=== PATIENT | female | born 1955 | race Caucasian/White ===

== ENCOUNTER 2020-12-20 11:25 | Outpatient (CLI) | payer MEDICARE, BC, OTHER, SELFPAY ==
--- NOTE | 2020-12-20 11:35 | MM_ITS ---
WS: [id number] BILATERAL SCREENING DIGITAL MAMMOGRAM WITH CAD HISTORY: SCREENING COMPARISON: 08/12/2019 and 03/10/2018 Bilateral CC and MLO views submitted. Computer aided detection analyzed. Breast composition: There are scattered areas of fibroglandular density. No suspicious masses, microc alcifications or architectural distortion. Benign stable lymph node posterior RIGHT breast. MM/[id number] IMPRESSION: BI-RADS: 2-Benign FOLLOW UP: 1 Year Follow-up
== END 2020-12-20 11:26 | disposition home or self-care (01) ==
LOC: RADSHAW 11:33
PROVIDERS: PCP Nurse Practitioner; Visit Provider Nurse Practitioner
DX: Z12.31 Encounter for screening mammogram for malignant neoplasm of breast (principal)
CPT/HCPCS: 77067

== ENCOUNTER 2021-09-17 12:05 | Emergency (ER) | payer MEDICARE, BC, SELFPAY ==
[2021-09-17 12:15] VITALS: BP 167/89; PULSE 113; RESP 16; TEMP 36.7; O2SAT 96; BMI 27.4
--- NOTE | 2021-09-17 12:28 | ED_ITS ---
HPI - Neuro Symptoms/Deficit General: Chief Complaint: Neuro Symptoms/Deficit Stated Complaint: LEFT SIDE NUMBNESS IN ARM AND THIGH Time Seen by Provider: 09/17/21 12:28 History of Present Illness: HPI Narrative: Ms. 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 She reports for the past few weeks she has had increasing falls, she describes some mild longstanding issues with balance however nothing like this. She describes sudden onset of tired feeling followed by complete loss of consciousness and waking up on the ground. No associated focal neurologic or seizure-like activity witnessed with these. She denies associated chest pain or shortness of breath. On Thursday she was seen by her neurologist in [place] for the symptoms and taken off of amitriptyline which she has been on for a long time as the neurologist felt that this was possibly a side effect as the patient aged. However, she has continued to have symptoms. Additionally over the past few days she has developed increasing left-sided sensory changes and weakness involving the left upper and left lower extremity. No facial involvement. She endorses perhaps 75% of normal sensation at times and feeling like if she bends her knee she will fall to the ground. Additionally facially she feels less balanced with no vertiginous symptoms associated with this. She denies infectious symptoms. Overall the course of symptoms has been worsening. Intensity is moderate to severe. No other specific changes in health, exacerbating, relieving factors identified. Onset (ago): day(s) Location: left arm, left leg and ataxia History of same: No Severity: moderate Quality: weak, numb and tingling Relieving factors: none Exacerbating factors: none Context: gradual onset and other On Anticoagulants: No Associated symptoms: Reports syncope Treatments Prior to Arrival: none Review of Systems General: Reports: 10 or more systems reviewed and unremarkable except in HPI and below Card: Reports: syncope PFS ED PFSH: Medical History CVA (cerebral vascular accident) Psoriatic arthritis Thyroid disorder Surgical History History of hysterectomy Social History Smoking and tobacco status: never smoked Physical Exam Const: COMMON NORMALS: patient oriented x3 and alert GENERAL APPEARANCE: cooperative and well developed HENMT: COMMON NORMALS: normocephalic and atraumatic HEAD & SCALP: normocephalic and atraumatic THROAT: posterior oropharynx normal Eye: COMMON NORMALS: conjunctivae normal CONJUNCTIVA: Yes conjunctivae normal SCLERA: sclerae normal Neck/C-Spine: COMMON NORMALS: supple GENERAL: Yes trachea midline Resp: COMMON NORMALS: normal respiratory effort EFFORT & INSPECTION: Yes able to speak in complete sentences Cardio: COMMON NORMALS: regular rate and regular rhythm RATE: regular rate RHYTHM: regular rhythm GI: COMMON NORMALS: Soft to palpation PALPATION: Yes Soft to palpation and No Tenderness to palpation present (GI) PERCUSSION: normal to percussion Extremity: GENERAL: Yes normal exam except as noted and No edema Neuro: COMMON NORMALS: patient oriented x3 and CN's II-XII intact bilaterally SENSORIUM/ORIENTATION: Yes alert and No Orientation impaired COORDINATION/BALANCE: other (Difficulty with left upper extremity [id number]) SPEECH: speech normal SENSORY EXAM: Yes extremities (sharp and dull intact and symmetric) MOTOR EXAM: Other motor observations present (Left upper extremity 4/5) COORDINATION: other (Difficulty with left upper extremity [id number]) PUPIL EXAM: Normal pupillary reactivity/response: bilateral Psych: COMMON NORMALS: mental status grossly normal and Normal thought process present THOUGHT PROCESS: Normal thought process present Course ED course: - Patient was seen and evaluated by me at bedside - Patient placed on cardiac monitors, IV access obtained - Initial evaluation notable for exam as above, there is appreciable weakness in the left upper extremity, no cranial nerve deficits - Given mild tachycardia IV fluids ordered - Labs notable for no leukocytosis, normal hemoglobin. Metabolic panel with perhaps mild evidence of dehydration. No evidence of urinary tract infection. - Imaging notable for no acute evidence of intracranial hemorrhage or mass - Upon serial reexamination after treatment the patient was similar. I discussed the case initially with Dr. Mesa of our neurology service and subsequently patient's primary neurologist. - Based on patient history, evaluation, labs, and imaging as interpreted the most likely cause of the patient's condition is unclear, possible stroke in the context of previous strokes. - The results of ED evaluation were discussed with the patient. I offered admission for MRI and further testing. Alternatively, Dr. Rios recommended discharge on aspirin which the patient was comfortable with. The patient preferred discharge over admission. Additionally I offered Keppra which was discussed with Dr. Rios however the patient declined this at this time. I discussed prescriptions and/or symptomatic cares (if applicable) including appropriate and responsible use, followup plan, and return precautions. The grey ent verbalized understanding and felt safe for discharge. - Patient discharged in satisfactory condition. - As far as further outpatient evaluation does the patient has an outpatient order for MRI from Dr. Rios. Additionally she currently has a Zio patch on. Given recurrent syncope without specific prodrome I will order additional outpatient testing including carotid ultrasound, echocardiogram, and stress test. Note: Click bubbles or prepopulated patten in note writing are used for assistance with data collection and billing and are inherently more limited than narrative and other text portions of this note. Please use narrative for additional clinical history and defer to narrative/free test for any case of contradictory information. If information appears in only free text or click bubble it should be considered present or absent as reported. Please contact note real estate underwriter for clarifications of clinical information or contradictory information. MDM is a brief summary, contradictory or erroneous seeming information should be clarified and full note should be reviewed. Vital Signs: Vital signs: Vital Signs Temperature 98.0 F 09/17/21 12:15 Pulse Rate 92 09/17/21 17:04 Respiratory Rate 20 H 09/17/21 17:04 Blood Pressure 141/88 09/17/21 17:04 Pulse Oximetry 96 09/17/21 17:04 MDM - Neuro Symptoms/Deficit MDM Narrative Medical decision making narrative: 66-year-old lady with history of stroke presenting with recrudescence versus new strokes primarily with left-sided changes. Changes are appreciable on clinical exam. Symptom onset days ago and therefore patient is not a candidate for TPA. No evidence of LVO. I discussed patient's case with patient's primary neurologist who felt the patient could safely be discharged with plan to add aspirin to patient's Plavix and statin. Patient has outpatient MRI orders and can safely follow-up in clinic. Medical Records Attestation: I reviewed the patient's medical records. Lab Data Attestation: I reviewed the patient's lab results. Result diagrams: 09/17/21 13:04 09/17/21 13:04 Labs: Radiology Impressions Chest X-Ray 09/17/21 12:48 Impression: Atherosclerosis. Head CT 09/17/21 12:48 IMPRESSION: 1. No acute intracranial hemorrhage or edema. 2. Moderate to severe areas of decreased attenuation surrounding the ventricles with progression the prior CT of 2019. There are several areas of marked decreased attenuation adjacent to the corpus callosum. Ischemic disease and/or demyelinating process should be considered. Laboratory Results WBC 7.6 10^3/uL (4.0-10.0) 09/17/21 13:04 RBC 4.02 10^6/uL (4.1-5.3) L 09/17/21 13:04 Hgb 12.2 g/dL (11.5-15.3) 09/17/21 13:04 Hct 37.1 % (37.0-47.0) 09/17/21 13:04 MCV 92.3 fl (81-99) 09/17/21 13:04 MCH 30.3 pg (28.0-34.0) 09/17/21 13:04 MCHC 32.9 g/dL (30.0-36.0) 09/17/21 13:04 RDW 12.7 % (12.1-15.1) 09/17/21 13:04 Plt Count 265 10^3/cmm (130-400) 09/17/21 13:04 MPV 10.2 fL (7.4-10.4) 09/17/21 13:04 Neut % (Auto) 69.2 % 09/17/21 13:04 Lymph % (Auto) 20.9 % 09/17/21 13:04 [place] % (Auto) 8.1 % 09/17/21 13:04 Eos % (Auto) 1.0 % 09/17/21 13:04 Baso % (Auto) 0.7 % 09/17/21 13:04 Neut # (Auto) 5.28 10^3/uL (1.8-7.7) 09/17/21 13:04 Lymph # (Auto) 1.6 10^3/uL (0.8-4.8) 09/17/21 13:04 [place] # (Auto) 0.6 10^3/uL (0.2-0.9) 09/17/21 13:04 Eos # (Auto) 0.1 10^3/uL (0.0-0.8) 09/17/21 13:04 Baso # (Auto) 0.1 10^3/uL (0.0-0.1) 09/17/21 13:04 Nucleated RBC % (auto) 0 % 09/17/21 13:04 Nucleated RBCs # 0.0 /100WBC 09/17/21 13:04 Sodium 134 mmol/L (136-145) L 09/17/21 13:04 Potassium 3.8 mmol/L (3.5-5.1) 09/17/21 13:04 Chloride 97 mmol/L (98-107) L 09/17/21 13:04 Carbon Dioxide 23 mmol/L (22-29) 09/17/21 13:04 Anion Gap 17.8 (5-19) 09/17/21 13:04 BUN 8 mg/dL (8-23) 09/17/21 13:04 Creatinine 0.4 mg/dL (0.5-0.9) L 09/17/21 13:04 GFR Calculation 159.7 mL/min (90-130) H 09/17/21 13:04 Glucose 112 mg/dL (65-115) 09/17/21 13:04 Calculated Osmolality 277 mOsm/kg (285-295) L 09/17/21 13:04 Calcium 8.7 mg/dL (8.5-10.5) 09/17/21 13:04 Total Bilirubin 0.5 mg/dL (0.15-1.2) 09/17/21 13:04 AST 15 U/L (0-32) 09/17/21 13:04 ALT 11 U/L (0-33) 09/17/21 13:04 Alkaline Phosphatase 139 IU/L (35-105) H 09/17/21 13:04 Troponin T Baseline 7 ng/L (0-10) 09/17/21 13:04 Troponin T 120 Minute 7.28 ng/L (0-10) 09/17/21 15:10 Delta Troponin T 0.28 ABS# (0-10) 09/17/21 15:10 Total Protein 6.7 g/dL (6.6-8.7) 09/17/21 13:04 Albumin 4.6 g/dL (3.5-5.2) 09/17/21 13:04 Globulin 2.1 g/dL (1.3-4.6) 09/17/21 13:04 TSH 1.75 uIU/mL (0.27-4.20) 09/17/21 13:04 Urine Color Yellow (Yellow) 09/17/21 14:09 Urine Appearance Clear (CLEAR) 09/17/21 14:09 Urine pH 8 (5-7) H 09/17/21 14:09 Ur Specific [place] 1.010 (1.005-1.030) 09/17/21 14:09 Urine Protein Neg (Negative) 09/17/21 14:09 Urine Glucose (UA) Norm (Normal) 09/17/21 14:09 Urine Ketones Negative (Negative) 09/17/21 14:09 Urine Blood Neg (Negative) 09/17/21 14:09 Urine Nitrate Negative (Negative) 09/17/21 14:09 Urine Bilirubin 1+ (Negative) H 09/17/21 14:09 Prot Sulfosalicylic Acd Negative (Negative) 09/17/21 14:09 Urine Urobilinogen Neg mg/dL (Negative) 09/17/21 14:09 Ur Leukocyte Esterase Negative (Negative) 09/17/21 14:09 EKG Data EKG 1: Interpretation: Twelve-lead EKG shows a regular rhythm at a rate of 106. CA interval 186, Q RS duration 120, QTc 429. Left axis deviation. Interpretation: Sinus rhythm. Bundle branch block. Electronic interpretation reads acute NH which I believe is erroneous given presence of bundle branch block. Image was sent to interventional cardiology who agrees with continued routine work-up. EKG 2: Attestation: I personally reviewed and interpreted this EKG as follows: EKG interpretation date: 09/17/21 EKG interpretation time: 16:22 Interpretation: 12-lead EKG shows a regular rhythm at a rate of 88. CA interval 209, QRS duration 108, QTc 434. Left axis deviation. Interpretation: Sinus rhythm. Electronic interpretation of acute NH is not appreciated on my read, similar erroneous read on prior EKG Discharge Plan Discharge Patient Disposition: Home Clinical Impression: Stroke-like symptoms, Syncope Condition: Stable Prescriptions: New aspirin 81 mg tablet,delayed release (DR/EC) 81 mg PO DAILY Qty: 30 0RF Discharge Orders: Discharge ED (Routine); Ordered 09/17/21 Ordered By: Jadiel Santana Referrals: Marisela Singh PERMANENT MOLD SUPERVISOR [Primary Care Provider] - Discharge Diet: Usual diet Discharge Activity: Resume usual activity Patient Instructions: Syncope (ED), Stroke (DC) Activity Restrictions/Additional Instructions: Thank you for visiting the emergency department. You were seen and evaluated for strokelike symptoms. The exact cause of the symptoms is somewhat unclear. You were found to be mildly dehydrated. It is possible that this is a new stroke. After discussion with your primary neurologist we recommend continuing your Plavix and statin as well as adding daily aspirin. Please follow-up regarding your current event monitor and your outpatient MRI. I will message our renal case manager for outpatient stress test and echocardiogram as well as ultrasound of your carotid arteries if these have not been done. Return to the emergency department for worsening symptoms, any new neurologic sy mptoms, or anything else that you are concerned about and feel needs emergency department evaluation. Coding Level of Care Code ED Bilingual Instructor for Danish Fwd Exam Comprehensive
[2021-09-17 12:48] VITALS: BP 144/82; PULSE 113; RESP 20; O2SAT 95
--- NOTE | 2021-09-17 12:48 | XR_ITS ---
WS: [id number] Portable AP upright chest, 09/17/2021 Clinical Data: stroke like symptoms Comparison: Portable chest, 01/22/2019. Findings: No nodules, masses or effusions are seen. The heart is normal. The pulmonary vascularity is not increased. No pneumonia or pneumothorax is seen. The aortic arch and descending thoracic aorta a re minimally tortuous. There is a recording device overlying the left hilum. XR/XR chest 1V portable [id number] Impression: Atherosclerosis.
--- NOTE | 2021-09-17 12:48 | ECG_ITS ---
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 Measurements Intervals [place] Rate: 106 P: -16 DE: 186 QRS: 35 QRSD: 120 T: -75 QT: 367 QTc: 488 Interpretive Statements SINUS TACHYCARDIA with frequent aberrantly conducted beats. ANTEROSEPTAL MYOCARDIAL INFARCTION , PROBABLY RECENT [40+ ms Q WAVE IN V1-V4] Diffuse nonspecific T wave changes. Recent anterolateral wall WI Compared to ECG 01/22/2019 16:41:29 Sinus rhythm no longer present Myocardial infarct finding still present Electronically Signed On 09-19-2021 0:00:11 HAND MOLDER AND CASTER by Marie Son M.D. [email or web address] Resourcesselect specialty hospitalLATTOaultman alliance community hospital.[employer]/store/OM/[id number]
--- NOTE | 2021-09-17 12:48 | CT_ITS ---
WS: [id number] CT HEAD NONCONTRAST HISTORY: L sided weakness, falls, LOC recurrent TECHNIQUE: Contiguous axial imaging performed through the brain in 2.5 mm imaging. Bone and soft tiss ue windows. Sagittal and coronal reformats reviewed. All CT scans at [facility] use at least one of these dose optimization techniques: automated exposure control; mA and/or kV adjustment per pa tient size (includes targeted exams where dose is matched to clinical indication); or iterative recon struction. DLP: 888.79 mGy.cm COMPARISON: 01/22/2019 No acute intracranial hemorrhage, midline shift or mass effect. There is extensive low-attenuation in the periventricular white matter. Confluent and patchy areas of decreased attenuation. There are additional smaller areas of decreased attenuation which are probabl y prior infarcts or demyelination. These are black holes which resemble demyelination from multiple s clerosis. There has been a progression of the chronic ischemic changes since the prior examination. Lacunar infarct in the LEFT thalamus and RIGHT caudate. Ventricles: Mild ventriculomegaly is probably on the basis of volume loss. Paranasal sinuses: As visualized are clear. Mastoid air cells: Well pneumatized. Calvarium and scalp: Skull is intact with no soft tissue edema or swelling. CT/CT head wo con* [id number] IMPRESSION: 1. No acute intracranial hemorrhage or edema. 2. Moderate to severe areas of decreased attenuation surrounding the ventricle s with progression the prior CT of 2018. There are several areas of marked decr eased attenuation adjacent to the corpus callosum. Ischemic disease and/or demy elinating process should be considered.
[2021-09-17 13:10] LABS: Basophils # 0.1 10^3/uL (0.0-0.1); Basophils % 0.7 %; Eosinophils # 0.1 10^3/uL (0.0-0.8); Hematocrit 37.1 % (37.0-47.0); Hemoglobin 12.2 g/dL (11.5-15.3); Lymphocytes # 1.6 10^3/uL (0.8-4.8); Lymphocytes % 20.9 %; Mean Corpuscular HGB Conc 32.9 g/dL (30.0-36.0); Mean Corpuscular Hemoglobin 30.3 pg (28.0-34.0); Mean Corpuscular Volume 92.3 fl (81-99); Mean Platelet Volume 10.2 fL (7.4-10.4); Monocytes # 0.6 10^3/uL (0.2-0.9); Monocytes % 8.1 %; Neutrophils # 5.28 10^3/uL (1.8-7.7); Neutrophils % 69.2 %; Nucleated Red Blood Cells % 0 %; Platelet Count 265 10^3/cmm (130-400); Red Blood Count 4.02 10^6/uL (4.1-5.3); Red Cell Distribution Width 12.7 % (12.1-15.1); White Blood Count 7.6 10^3/uL (4.0-10.0)
[2021-09-17 13:32] LABS: Troponin(5th) Baseline 7 ng/L (0-10)
[2021-09-17] MEDS: sodium chloride 0.9% 1,000 ML 999 ML IV (13:36)
[2021-09-17 13:38] LABS: Alanine Aminotransferase 11 U/L (0-33); Albumin Level 4.6 g/dL (3.5-5.2); Alkaline Phosphatase 139 IU/L (35-105); Anion Gap 17.8 (5-19); Aspartate Amino Transferase 15 U/L (0-32); Blood Urea Nitrogen 8 mg/dL (8-23); Calcium 8.7 mg/dL (8.5-10.5); Carbon Dioxide 23 mmol/L (22-29); Chloride 97 mmol/L (98-107); Globulin 2.1 g/dL (1.3-4.6); Glomerular Filtration Rate 159.7 mL/min (90-130); Glucose 112 mg/dL (65-115); Osmolality Calculated 277 mOsm/kg (285-295); Potassium 3.8 mmol/L (3.5-5.1); Sodium 134 mmol/L (136-145); Thyroid Stimulating Hormone 1.75 uIU/mL (0.27-4.20); Total Bilirubin 0.5 mg/dL (0.15-1.2); Total Protein 6.7 g/dL (6.6-8.7)
[2021-09-17 14:17] VITALS: BP 156/82; PULSE 108; RESP 20; O2SAT 96
[2021-09-17 14:18] LABS: Add Urine Microscopic? NO; Charge for UA Resulting for Rev
[2021-09-17 14:33] LABS: Bilirubin Urine 1+ (Negative); Blood Urine Neg (Negative); Glucose Urine UA Norm (Normal); Ketones Urine Negative (Negative); Nitrate Urine Negative (Negative); Protein Urine Neg (Negative); Urine Appearance Clear (CLEAR); Urine Color Yellow (Yellow); pH Urine 8 (5-7)
[2021-09-17 14:34] LABS: Leukocyte Esterase Urine Negative (Negative); Sulfosalicylic Acid Urine Negative (Negative); Urobilinogen Urine Neg (Negative)
--- NOTE | 2021-09-17 14:48 | ECG_ITS ---
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 Measurements Intervals [place] Rate: 88 P: 16 [place]: 209 QRS: -51 QRSD: 108 T: 74 QT: 389 QTc: 471 Interpretive Statements SINUS RHYTHM with ISOLATED PVC'S POSSIBLE LEFT ATRIAL ENLARGEMENT [-0.1mV P-WAVE IN V1/V2] LEFT AXIS DEVIATION [QRS AXIS < -30] POSSIBLE LEFT VENTRICULAR HYPERTROPHY [VOLTAGE CRITERIA PLUS LAE OR QRS WIDENING] ANTEROSEPTAL MYOCARDIAL INFARCTION , PROBABLY RECENT Compared to ECG 09/17/2021 13:24:57 Left-axis deviation now present Sinus tachycardia no longer present Myocardial infarct finding still present Electronically Signed On 09-17-2021 22:10:37 HARNESS INSPECTOR by Eliz Aranda M.D. [email or web address]/store/[id number]
[2021-09-17 15:35] VITALS: BP 134/90; PULSE 100; RESP 17; O2SAT 95
[2021-09-17 15:49] LABS: Troponin 5 2HR 7.28 ng/L (0-10)
[2021-09-17 17:04] VITALS: BP 141/88; PULSE 92; RESP 20; O2SAT 96
[2021-09-17 17:38] LABS: Troponin 5 2HR Delta 0.28 ABS# (0-10)
--- NOTE | 2021-09-18 15:51 | DCPLANNER ---
Addendum entered by Ramandeep Dsouza 10/18/21 10:22: Patient had an appointment scheduled for 10.04.21 for an out patient stress test - patient did attend appointment. Patient had an appointment scheduled for 10.02.21 for an out patient ultrasound - patient did attend appointment. Patient had an appointment scheduled for 10.17.21 for an out patient echo - patient did not attend appointment. Addendum entered by Ramandeep Dsouza 09/24/21 09:09: Patient has the following tests scheduled, and centralized scheduling has called patient with appointment information. Stress test - Thursday, October 04, 2021 at 9:15 US - Thursday, October 02, 2021 at 11:00 Echo - September, at 10:15 Original Note: biodiesel product manager had message to schedule an outpatient stress test, echo and a carotid duplex ultrasound. biodiesel product manager faxed signed order to centralized scheduling, who will call patient with appointment information.
== END 2021-09-17 17:00 | disposition home or self-care (01) ==
PROVIDERS: Emergency Provider Emergency Medicine; PCP Nurse Practitioner
DX: R55 Syncope and collapse (principal); R68.89 Other general symptoms and signs; Z86.73 Personal history of transient ischemic attack (TIA), and cerebral infarction without residual deficits
CPT/HCPCS: 36415; 70450; 71045; 80053; 81003; 84443; 84484; 85025; 93005; 96360; 99283; J7030

== ENCOUNTER 2021-09-24 12:18 | Outpatient (CLI) | payer MEDICARE, BC, SELFPAY ==
--- NOTE | 2021-09-24 12:32 | MR_ITS ---
WS: [id number] MRI BRAIN WITHOUT CONTRAST HISTORY: TIA COMPARISON: 12/23/2018 TECHNIQUE: Diffusion imaging, multiplanar T1, T2 and FLAIR imaging obtained. Acute infarct with diffusion-weighted abnormality in the posterior RIGHT whyte radiata. There is an additional very tiny diffusion-weighted abnormality in the region of the LEFT thalamus which may be a n additional infarct. No evidence for T2 shine through. There is extensive T2 and FLAIR signal hyperintensities throughout the white matter and surrounding t he ventricles. Confluent and patchy areas of increased T2 and FLAIR signal. Some of these T2 signal a bnormalities extend to involve the corpus callosum at several areas and there are small black holes p resent. Progression of these chronic ischemic changes since the prior examination. Signal abnormaliti es extend to involve the dontrell bilaterally and also the RIGHT cerebellum. Ventricles and extra-axial spaces are mildly prominent on the basis of atrophy. No inferior displacement of cerebellar tonsils. The sella turcica and pituitary gland are unremarkabl e. Dural venous sinuses and [place] demonstrate no abnormality on this unenhanced studies. Paranasal sinuses: Clear. Mastoid air cells: Normal. Calvarium and scalp: Intact. MR/MR head wo con* [id number] IMPRESSION: 1. Acute infarct involving the posterior RIGHT whyte radiata. 2. Indeterminate but possible additional very small acute lacunar infarct in t he LEFT thalamus. 3. Severe chronic white matter ischemic disease. There is also involvement of the corpus callosum which can be seen with demyelination also. Suspect these ch anges all related to advanced chronic microvascular ischemic disease with progr ession since 12/23/2018. 4. No hemorrhage.
== END 2021-09-24 12:19 | disposition home or self-care (01) ==
LOC: RAD 12:22
PROVIDERS: PCP Nurse Practitioner; Visit Provider Psychiatry & Neurology Neurology
DX: R55 Syncope and collapse (principal); G45.9 Transient cerebral ischemic attack, unspecified; R47.01 Aphasia; E06.3 Autoimmune thyroiditis; G31.84 Mild cognitive impairment of uncertain or unknown etiology; I63.9 Cerebral infarction, unspecified; I67.82 Cerebral ischemia
CPT/HCPCS: 70551

== ENCOUNTER 2021-10-02 10:48 | Outpatient (CLI) | payer MEDICARE, BC, SELFPAY ==
--- NOTE | 2021-10-02 10:53 | USCV_ITS ---
Dalila Gamez Age: 66 Gender: F : 1955 Exam Date: 10/02/2021 11:03 Ordering Phys: Chacorta Hubbard DO Technologist: Mann Robin Exam Location: [facility] [place] Indication: syncope Risk Factors: Previous Vascular Surgery: Right Brachial BP: / Left Brachial BP: / Right Left Velocity (cm/s) Spectral Plaque Velocity (cm/s) Spectral Plaque Syst/Diast Broadening Syst/Diast Broadening 97.10/ 7.00 Prox CCA 122.10/ 26.60 73.80/ 19.40 Mid CCA 82.30 / 15.50 54.50/ 12.80 Distal CCA 82.30 / 15.50 34.60/ 9.40 Prox ICA 63.60 / 15.50 101.00/29.50 Mid ICA 114.50/ 43.60 99.40/ 29.50 Distal ICA 103.40/ 32.50 108.00 ECA 97.90 1.37 ICA/CCA 1.39 Antegrade Vertebral Antegrade 55.00/ 13.40 cm/s 67.50/ 22.20 cm/s Tri Subclavian Tri 114.7 133.4 0 0 CONCLUSIONS Right ICA stenosis <50%. Mild atheromatous plaque right carotid bulb/ICA. Left ICA stenosis <50%. Mild atheromatous plaque left carotid bulb/ICA. Normal antegrade Doppler flow noted in the left vertebral artery. Normal antegrade Doppler flow noted in the right vertebral artery. Juni Britton MD (Electronically Signed) Final Date: 02 October 2021 17:29 S
== END 2021-10-02 10:49 | disposition home or self-care (01) ==
PROVIDERS: PCP Nurse Practitioner; Visit Provider Psychiatry & Neurology Neurology
DX: R55 Syncope and collapse (principal); I65.23 Occlusion and stenosis of bilateral carotid arteries
CPT/HCPCS: 93880

== ENCOUNTER 2021-10-04 07:24 | Outpatient (CLI) | payer MEDICARE, BC, SELFPAY ==
[2021-10-04 08:37] VITALS: BMI 28.1
--- NOTE | 2021-10-04 08:40 | ECG_ITS ---
[facility] Test Date: 2021-10-04 Pat Name: Dalila Gamez Department: Room: Gender: Female Manager Fixed Income: Jennifer Nunez : 1955 Requested By: Chacorta White Order Number: [id number] Ian MD: Eliz Aranda M.D. Interpretive Statements NAME OF STUDY: LEXISCAN SESTAMIBI STRESS TEST INDICATION: Syncope PROCEDURE: At the baseline, the blood pressure was 145/85 mmHg, oxygen saturation 92% with a heart rate of 84 bpm. The electrocardiogram showed normal sinus rhythm, left left axis deviation. Possible old anteroseptal infarct. The Lexiscan was infused over a period of 20 seconds. A total of 0.4 milligrams of Lexiscan was infused. The stress phase was continued for a total of 5 minutes. Heart rate at the end of the stress phase was 90 bpm, oxygen saturation 93% with a blood pressure of 141/70 mmHg. The EKG at the peak infusion revealed sinus rhythm with left axis deviation with intraventricular conduction delay (QRS widening during Lexiscan infusion). The study was terminated protocol completion. Sestamibi was injected 20 seconds after the Lexiscan infusion. Blood pressure at the end of the recovery phase was 135/73 mmHg, oxygen saturation 93% with a heart rate of 87 beats per minute. CONCLUSION: 1. No significant EKG changes with the LexiScan infusion. 2. No LexiScan induced chest pain or cardiac arrhythmia. 3. Normal blood pressure and heart rate response. 4. Sestamibi/sestamibi perfusion scan pending; see separate report. Electronically Signed On 10-09-2021 17:00:04 SALES PROJECT COORDINATOR by Eliz Aranda M.D. [email or web address]/store/[id number]
--- NOTE | 2021-10-04 08:41 | NMCV_ITS ---
NM jason perf SPECT r/s* [id number] Dalila Gamez Age: 66 Gender: F : 1955 Exam Date: 10/04/2021 09:46 Ordering Phys: Chacorta Hubbard DO Technologist: RON Solis Exam Location: [facility] Indications: SYNCOPE STRESS TEST [facility] IMAGE PROTOCOL Rest/Stress 1 Lexiscan Day Radiopharmaceutical Dose (mCi) Administration Site Administered by Rest: Tc-99m 9.1 IV RON Rodgers Sestamibi Stress:Tc-99m 32.5 IV RON Rodgers Sestamibi Rest: 04-Oct-2021 60 Discovery 630 Stress: 04-Oct-2021 30 Discovery 630 0.4mg Lexiscan. Supine position only as patient was unable to lay prone. SPECT RESULTS Technical Quality: Excellent Raw Data Analysis: Normal Image Corrections: No attenuation or motion correction applied Summed Stress Score: 0 Summed Rest Score: 0 Summed Difference Score: 0 PERFUSION FINDINGS Very small sized perfusion abnormality of mild severity of mid anterior wall on stress images. FUNCTIONAL RESULTS (calculated via Gated SPECT) Stress Image LV EF (%): 46 Stress EDV (mL):130 TID: 0.89 Stress ESV (mL):70 FUNCTIONAL FINDINGS: The left ventricle is normal in size. Transient Ischemia Dilatation of 0.89. There is mildly reduced left ventricular global systolic function. The left ventricular ejection fraction is mildly reduced with a value of 46%. There is mildly reduced left ventricular wall thickening. IMPRESSIONS 1. Very small sized reversible perfusion abnormality of mild severity of mid anterior wall. 2. This may be suggestive of small area of ischemia in left anterior descending artery territory. 3. The left ventricular ejection fraction is mildly reduced with a value of 46%. 4. There is mildly reduced left ventricular wall thickening. 5. No prior similar studies to compare. Eliz Aranda MD (Electronically Signed) Final Date: 05 October 2021 22:03 S
[2021-10-04] MEDS: regadenoson 0.4 Mg/5 ml Syringe IVP (10:56)
[2021-10-04 12:09] VITALS: BP 135/73; PULSE 89
== END 2021-10-04 07:25 | disposition home or self-care (01) ==
LOC: RAD 07:35 → CDL 08:30
PROVIDERS: PCP Nurse Practitioner; Visit Provider Family Medicine
DX: R55 Syncope and collapse (principal)
CPT/HCPCS: 78452; 93017; A9500; J2785

== ENCOUNTER 2021-11-09 11:38 | Emergency (ER) | payer MEDICARE, BC, SELFPAY ==
[2021-11-09 11:58] VITALS: BP 161/92; PULSE 91; RESP 16; TEMP 36.5; O2SAT 96
[2021-11-09 12:02] VITALS: BMI 29.5
--- NOTE | 2021-11-09 12:17 | CTR_ITS ---
PROCEDURE INFORMATION: Exam: CT Head Without Contrast Exam date and time: 11/09/2021 12:48 PM Age: 66 years old Clinical indication: Weakness, extremity; Left; Additional info: Symptoms of acute stroke TECHNIQUE: Imaging protocol: Computed tomography of the head without contrast. Radiation optimization: All CT scans at this facility use at least one of these dose optimization techniques: automated exposure control; mA and/or kV adjustment per patient size (includes targeted exams where dose is matched to clinical indication); or iterative reconstruction. Other technique: STROKE PROTOCOL was implemented. COMPARISON: MR head wo con* [id number] 09/24/2021 1:19 PM RADIATION DOSE METRICS: Total DLP (mGy-cm): 1667.86 FINDINGS: Brain: Central and cortical atrophy with periventricular infarcts bilaterally. No intracranial blood. Cerebral ventricles: No ventriculomegaly. Paranasal sinuses: Visualized sinuses are unremarkable. No fluid levels. Mastoid air cells: Visualized mastoid air cells are well aerated. Bones/joints: Unremarkable. No acute fracture. Soft tissues: Unremarkable. CT/CT head wo con* [id number] IMPRESSION: No acute intracranial abnormality. ASSESSMENT: ASPECTS ([place] Stroke Program Early CT Score) is 10.
--- NOTE | 2021-11-09 12:20 | W.ED.NEUROSD ---
HPI - Neuro Symptoms/Deficit General: Chief Complaint: Neuro Symptoms/Deficit Stated Complaint: Fell this morning, confusion, Hx of strokes Time Seen by Provider: 11/09/21 12:03 History of Present Illness: Patient is brought in by with mental status change. States that about 3-1/2 to 4 hours ago she started to develop change in her mental status with some confusion and aphasia as well as a fall. Patient has a history of previous strokes per the . They deny any cold symptoms including no fever, cough, congestion, vomiting, diarrhea. Associated symptoms: Deny chest pain, headache(s), nausea or vomiting Review of Systems Const: Denies: fever(s) or body aches Eyes: Denies: change in vision or blurry vision ENMT: Denies: throat pain or odynophagia Card: Denies: chest pain or palpitations Resp: Denies: dyspnea or productive cough GI: Denies: abdominal pain, nausea or vomiting : Denies: flank pain or dysuria Musc: Denies: neck pain or back pain Skin/Breast: Denies: rash or pruritus Neuro: Reports: frequent falls and confusion; Denies: headache(s) or numbness in extremities Psych: Denies: anxiety or change in appetite Endo: Denies: polyuria or excessive sweating PFSH ED PFSH: Medical History CVA (cerebral vascular accident) Psoriatic arthritis Thyroid disorder Surgical History History of hysterectomy Social History Smoking and tobacco status: never smoked Physical Exam Const: COMMON NORMALS: no acute distress, healthy appearing and alert HENMT: COMMON NORMALS: normocephalic and atraumatic HEAD & SCALP: normocephalic and atraumatic Eye: COMMON NORMALS: Equal, round and reactive pupils present and EOMs intact bilaterally PUPIL: Yes Equal, round and reactive pupils present Neck/C-Spine: COMMON NORMALS: full ROM and supple Resp: COMMON NORMALS: normal respiratory effort, No retractions and No use of accessory muscles Cardio: COMMON NORMALS: regular rate and regular rhythm RATE: regular rate RHYTHM: regular rhythm GI: COMMON NORMALS: Normal to inspection, nondistended, normoactive bowel sounds present, Soft to palpation and non-tender PALPATION: Yes Soft to palpation Back/Pelvis: COMMON NORMALS: thoracic and lumbar spine normal to inspection and no thoracic nor lumbar tenderness Extremity: COMMON NORMALS: normal to inspection and full ROM Neuro: SENSORIUM/ORIENTATION: Yes alert OTHER: no neurologic lateralizing symptoms. She does say inappropriate words and repetitively says I am sorry I do not understand what I am doing. She follows most commands but at times appears confused. Psych: COMMON NORMALS: mental status grossly normal and cooperative Skin: COMMON NORMALS: no rashes or lesions noted and no wounds GENERAL SKIN EXAM: no rashes or lesions noted Course Vital Signs: Vital signs: Vital Signs Temperature 97.7 F 11/09/21 11:58 Pulse Rate 98 11/09/21 14:02 Respiratory Rate 16 11/09/21 14:02 Blood Pressure 183/94 11/09/21 14:02 Pulse Oximetry 97 11/09/21 14:02 MDM - Neuro Symptoms/Deficit Medical Decision Making Patient is brought in by with mental status change. States that about 3-1/2 to 4 hours ago she started to develop change in her mental status with some confusion and aphasia as well as a fall. Patient has a history of previous strokes per the . They deny any cold symptoms including no fever, cough, congestion, vomiting, diarrhea. Physical exam reveals no neurologic lateralizing symptoms. She does say inappropriate words and repetitively says I am sorry I do not understand what I am doing. She follows most commands but at times appears confused. Will check labs, CT, and reassess. On reassessment I talked to the patient about the test results. She states she is feeling much better and almost back to normal. She would like to go home. Will discharge at this time with precautions return for worsening or changing symptoms. Lab Data : 11/09/21 12:12 11/09/21 13:[address] 11/09/21 12:17 IMPRESSION: No acute intracranial abnormality. ASSESSMENT: ASPECTS ([place] Stroke Program Early CT Score) is 10. Laboratory Results WBC 8.3 10^3/uL (4.0-10.0) 11/09/21 12:12 RBC 4.31 10^6/uL (4.1-5.3) 11/09/21 12:12 Hgb 13.3 g/dL (11.5-15.3) 11/09/21 12:12 Hct 42.0 % (37.0-47.0) 11/09/21 12:12 MCV 97.4 fl (81-99) 11/09/21 12:12 MCH 30.9 pg (28.0-34.0) 11/09/21 12:12 MCHC 31.7 g/dL (30.0-36.0) 11/09/21 12:12 RDW 13.1 % (12.1-15.1) 11/09/21 12:12 Plt Count 227 10^3/cmm (130-400) 11/09/21 12:12 MPV 11.6 fL (7.4-10.4) H 11/09/21 12:12 Neut % (Auto) 68.0 % 11/09/21 12:12 Lymph % (Auto) 20.3 % 11/09/21 12:12 Metcalfe % (Auto) 9.0 % 11/09/21 12:12 Eos % (Auto) 1.7 % 11/09/21 12:12 Baso % (Auto) 0.6 % 11/09/21 12:12 Neut # (Auto) 5.67 10^3/uL (1.8-7.7) 11/09/21 12:12 Lymph # (Auto) 1.7 10^3/uL (0.8-4.8) 11/09/21 12:12 Metcalfe # (Auto) 0.8 10^3/uL (0.2-0.9) 11/09/21 12:12 Eos # (Auto) 0.1 10^3/uL (0.0-0.8) 11/09/21 12:12 Baso # (Auto) 0.1 10^3/uL (0.0-0.1) 11/09/21 12:12 Nucleated RBC % (auto) 0 % 11/09/21 12:12 Nucleated RBCs # 0.0 /100WBC 11/09/21 12:12 PT Cancelled 11/09/21 12:12 INR Cancelled 11/09/21 12:12 APTT Cancelled 11/09/21 12:12 Specimen Type Arterial 11/09/21 12:20 Sample Site Radial, right 11/09/21 12:20 ABG pH 7.54 (7.35-7.45) H 11/09/21 12:20 ABG pCO2 29.0 mmHg (35-45) L 11/09/21 12:20 ABG pO2 81.0 mmHg (80.0-100.0) 11/09/21 12:20 ABG HCO3 24.9 mmol/L (22-26) 11/09/21 12:20 ABG Base Excess 3.1 mmol/L (-2.0-2.0) H 11/09/21 12:20 Byron Test Pos 11/09/21 12:20 Hematocrit 38.8 % (37-47) 11/09/21 12:20 O2 Delivery Device Room air 11/09/21 12:20 FiO2 21.0 % 11/09/21 12:20 Therapy Assistant ID Lauraro 11/09/21 12:20 Sodium 137 mmol/L (136-145) 11/09/21 13:41 Potassium 3.6 mmol/L (3.5-5.1) 11/09/21 13:41 Chloride 100 mmol/L (98-107) 11/09/21 13:41 Carbon Dioxide 21 mmol/L (22-29) L 11/09/21 13:41 Anion Gap 19.6 (5-19) H 11/09/21 13:41 BUN 10 mg/dL (8-23) 11/09/21 13:41 Creatinine 0.6 mg/dL (0.5-0.9) 11/09/21 13:41 GFR Calculation 100.0 mL/min (90-130) 11/09/21 13:41 Glucose 97 mg/dL (65-115) 11/09/21 13:41 POC Glucose 90 mg/dL (70-110) 11/09/21 12:33 Calculated Osmolality 283 mOsm/kg (285-295) L 11/09/21 13:41 Calcium 10.0 mg/dL (8.5-10.5) 11/09/21 13:41 Total Bilirubin 0.6 mg/dL (0.15-1.2) 11/09/21 13:41 AST 18 U/L (0-32) 11/09/21 13:41 ALT 13 U/L (0-33) 11/09/21 13:41 Alkaline Phosphatase 91 IU/L (35-105) 11/09/21 13:41 Ammonia 22 umol/L (11-51) 11/09/21 13:41 Total Protein 6.9 g/dL (6.6-8.7) 11/09/21 13:41 Albumin 5.0 g/dL (3.5-5.2) 11/09/21 13:41 Globulin 1.9 g/dL (1.3-4.6) 11/09/21 13:41 Urine Color Yellow (Yellow) 11/09/21 Unknown Urine Appearance Clear (CLEAR) 11/09/21 Unknown Urine pH 8 (5-7) H 11/09/21 Unknown Ur Specific [place] 1.010 (1.005-1.030) 11/09/21 Unknown Urine Protein Neg (Negative) 11/09/21 Unknown Urine Glucose (UA) Norm (Normal) 11/09/21 Unknown Urine Ketones Negative (Negative) 11/09/21 Unknown Urine Blood Neg (Negative) 11/09/21 Unknown Urine Nitrate Negative (Negative) 11/09/21 Unknown Urine Bilirubin Neg (Negative) 11/09/21 Unknown Prot Sulfosalicylic Acd Negative (Negative) 11/09/21 Unknown Urine Urobilinogen Norm mg/dL (Negative) 11/09/21 Unknown Ur Leukocyte Esterase Negative (Negative) 11/09/21 Unknown Salicylates < 0.3 mg/dL (3-10) L 11/09/21 13:41 Urine Opiates Screen Negative ng/mL (Negative) 11/09/21 Unknown Acetaminophen < 5.0 ug/mL (10-30) L 11/09/21 13:41 Ur Barbiturates Screen Negative ng/mL (Negative) 11/09/21 Unknown Ur Phencyclidine Scrn Negative ng/mL (Negative) 11/09/21 Unknown Ur Amphetamines Screen Negative ng/mL (Negative) 11/09/21 Unknown U Benzodiazepines Scrn Negative ng/mL (Negative) 11/09/21 Unknown Urine Cocaine Screen Negative ng/mL (Negative) 11/09/21 Unknown U Marijuana (THC) Screen Negative ng/mL (Negative) 11/09/21 Unknown Ethyl Alcohol < 10 mg/dL (0-10) 11/09/21 13:41 Discharge Plan Discharge Patient Disposition: Home Clinical Impression: Altered mental state Condition: Stable Prescriptions: No Action aspirin 81 mg tablet,delayed release (DR/EC) 81 mg PO DAILY Qty: 30 0RF sulfasalazine 500 mg tablet,delayed release (DR/EC) 1,000 mg PO TID 0RF clopidogrel 75 mg tablet 75 mg PO DAILY 0RF liothyronine 5 mcg tablet 5 mcg PO EVERY OTHER DAY 0RF amitriptyline 25 mg tablet 25 mg PO BEDTIME 0RF Calcium 500 500 mg calcium (1,250 mg) Tablet 500 mg PO DAILY 0RF lutein 6 mg Capsule 6 mg PO DAILY 0RF Synthroid 125 mcg tablet 125 mcg PO DAILY 0RF etodolac 400 mg tablet 400 mg PO TID 0RF Flovent HFA 110 mcg/actuation HFA aerosol inhaler 1 puff INHALATION BID 0RF Vitamin D3 25 mcg (1,000 unit) Capsule 25 mcg PO DAILY 0RF Restasis 0.05 % dropperette 1 drp ophthalmic (eye) BID PRN (Reason: Eyes) 0RF rosuvastatin 10 mg tablet 10 mg PO DAILY 0RF duloxetine 30 mg capsule,delayed release(DR/EC) 30 mg PO BID 0RF Xopenex HFA 45 mcg/actuation HFA aerosol inhaler 1 puff INHALATION DAILY 0RF Fish Oil 1,200 (144-216) mg Capsule 1 cap PO DAILY 0RF Cosentyx Pen (2 Pens) 150 mg/mL pen injector 150 mg SUBCUT Q30D 0RF Discharge Orders: Discharge ED (Routine); Ordered 11/09/21 Ordered By: Gianfranco Portillo Referrals: Marisela Singh APN [Primary Care Provider] - Coding Level of Care Code ED Seed Analysis Laboratory Assistant for Chg Fwd Exam Comprehensive
--- NOTE | 2021-11-09 12:21 | NUR.SHIFT ---
PT PLACED ON CONTINUOUS SPO2, NIBP, AND CM.
[2021-11-09 12:33] LABS: ABG PH Result 7.54 (7.35-7.45); Arterial Blood Gas Hematocrit 38.8 % (37-47); Base Excess ABG 3.1 mmol/L (-2.0-2.0); Blood Gas Allen Test Pos; Blood Gas Operator Identificat MONRO; Blood Gas Sample Site Radial, right; Blood Gas Sample Type Arterial; HCO3 ABG 24.9 mmol/L (22-26); Oxygen Device ROOM AIR
[2021-11-09] MEDS: sodium chloride 0.9% 500 ML 999 ML IV (12:33)
[2021-11-09 12:35] LABS: Basophils # 0.1 10^3/uL (0.0-0.1); Basophils % 0.6 %; Eosinophils # 0.1 10^3/uL (0.0-0.8); Eosinophils % 1.7 %; Hemoglobin 13.3 g/dL (11.5-15.3); Lymphocytes # 1.7 10^3/uL (0.8-4.8); Lymphocytes % 20.3 %; Mean Corpuscular HGB Conc 31.7 g/dL (30.0-36.0); Mean Corpuscular Hemoglobin 30.9 pg (28.0-34.0); Mean Corpuscular Volume 97.4 fl (81-99); Mean Platelet Volume 11.6 fL (7.4-10.4); Monocytes # 0.8 10^3/uL (0.2-0.9); Neutrophils # 5.67 10^3/uL (1.8-7.7); Nucleated Red Blood Cells % 0 %; Platelet Count 227 10^3/cmm (130-400); Red Blood Count 4.31 10^6/uL (4.1-5.3); Red Cell Distribution Width 13.1 % (12.1-15.1); White Blood Count 8.3 10^3/uL (4.0-10.0)
--- NOTE | 2021-11-09 12:36 | ECG_ITS ---
[facility] Test Date: 2021-11-09 Pat Name: Dalila Gamez Department: Room: Gender: Female [employer] Operator: : 1955 Requested By: Gianfranco Portillo Order Number: [id number] Ian MD: Marie Son M.D. Measurements Intervals [place] Rate: 91 P: 64 NE: 187 QRS: 80 QRSD: 116 T: -70 QT: 401 QTc: 494 Interpretive Statements SINUS RHYTHM ANTEROSEPTAL MYOCARDIAL INFARCTION , OF INDETERMINATE AGE [40+ ms Q WAVE IN V1-V4] MODERATE T-WAVE ABNORMALITY, CONSIDER LATERAL ISCHEMIA [-0.1+ mV T-WAVE IN I/aVL/V5/V6] MODERATE T-WAVE ABNORMALITY, CONSIDER INFERIOR ISCHEMIA [-0.1+ mV T-WAVE IN II/aVF] Compared to ECG 09/17/2021 16:17:40 T-wave abnormality now present Possible ischemia now present Left-axis deviation no longer present Myocardial infarct finding still present Electronically Signed On 11-10-2021 17:24:39 CDT by Marie Son M.D. [email or web address]
[2021-11-09 12:38] LABS: Glucose Point of Care 90 mg/dL (70-110)
[2021-11-09 13:16] VITALS: BP 149/91; PULSE 88; RESP 16; O2SAT 96
[2021-11-09] MEDS: acetaminophen 325 mg Tablet 650 MG PO (13:59)
[2021-11-09 14:02] VITALS: BP 183/94; PULSE 98; RESP 16; O2SAT 97
[2021-11-09 14:07] LABS: Add Urine Microscopic? NO; Charge for UA Resulting for Rev
[2021-11-09 14:21] LABS: Ammonia 22 umol/L (11-51)
[2021-11-09 14:22] LABS: Alanine Aminotransferase 13 U/L (0-33); Alkaline Phosphatase 91 IU/L (35-105); Anion Gap 19.6 (5-19); Aspartate Amino Transferase 18 U/L (0-32); Blood Urea Nitrogen 10 mg/dL (8-23); Carbon Dioxide 21 mmol/L (22-29); Chloride 100 mmol/L (98-107); Globulin 1.9 g/dL (1.3-4.6); Glucose 97 mg/dL (65-115); Osmolality Calculated 283 mOsm/kg (285-295); Potassium 3.6 mmol/L (3.5-5.1); Sodium 137 mmol/L (136-145); Total Bilirubin 0.6 mg/dL (0.15-1.2); Total Protein 6.9 g/dL (6.6-8.7)
[2021-11-09 14:29] LABS: Acetaminophen < 5.0 ug/mL (10-30); Alcohol Level < 10 mg/dL (0-10); Salicylate < 0.3 mg/dL (3-10)
[2021-11-09 14:33] LABS: Urine Appearance Clear (CLEAR); Urine Color Yellow (Yellow); pH Urine 8 (5-7)
[2021-11-09 14:34] LABS: Amphetamines Screen Urine Negative (Negative); Barbiturates Screen Urine Negative (Negative); Benzodiazepines Screen Urine Negative (Negative); Bilirubin Urine Neg (Negative); Blood Urine Neg (Negative); Cocaine Screen Urine Negative (Negative); Glucose Urine UA Norm (Normal); Ketones Urine Negative (Negative); Leukocyte Esterase Urine Negative (Negative); Nitrate Urine Negative (Negative); Opiate Screen Urine Negative (Negative); PCP Screen Urine Negative (Negative); Protein Urine Neg (Negative); Sulfosalicylic Acid Urine Negative (Negative); THC Screen Urine Negative (Negative); Urobilinogen Urine Norm (Negative)
[2021-11-09 15:44] LABS: INR 0.99 (0.8-1.2)
[2021-11-09 15:45] LABS: Partial Thromboplastin Time 29.7 SECONDS (23.9-36.7)
[2021-11-09 15:47] VITALS: BP 183/94; PULSE 97; RESP 16; O2SAT 98
== END 2021-11-09 15:52 | disposition home or self-care (01) ==
PROVIDERS: Emergency Provider Emergency Medicine; PCP Nurse Practitioner
DX: R41.82 Altered mental status, unspecified (principal); Z79.82 Long term (current) use of aspirin; Z79.02 Long term (current) use of antithrombotics/antiplatelets; Z86.73 Personal history of transient ischemic attack (TIA), and cerebral infarction without residual deficits
CPT/HCPCS: 36416; 36600; 70450; 80053; 80306; 80307; 81003; 82140; 82803; 82962; 85025; 85610; 85730; 93005; 99284; J7040

== ENCOUNTER → 2021-12-17 09:55 | Outpatient (BNVA) | payer MEDICARE, BC, SELFPAY | PROVIDERS: PCP Nurse Practitioner; Visit Provider Surgery | DX: Z80.0 Family history of malignant neoplasm of digestive organs (principal); I63.9 Cerebral infarction, unspecified | CPT/HCPCS: 99204 ==

== ENCOUNTER 2022-01-29 07:14 | Day surgery (SDC) | payer MEDICARE, BC, OTHER, SELFPAY ==
[2022-01-27 10:56] VITALS: BMI 27.3
[2022-01-29 07:58] VITALS: BP 155/92; PULSE 90; RESP 18; TEMP 36.6; O2SAT 95
[2022-01-29] MEDS: sodium chloride 0.9% 1,000 ML 30 ML IV (08:01)
--- NOTE | 2022-01-29 08:32 | ANES.PREANE2 ---
Pre-Anesthetic Assessment Height/Weight: Height 1.75 m Weight 83.915 kg Temp Pulse Resp BP Pulse Ox 97.8 F 90 18 155/92 95 01/29/22 07:58 01/29/22 07:58 01/29/22 07:58 01/29/22 07:58 01/29/22 07:58 Preop Diagnosis: diagnostic Operation Date: 01/29/22 09:00 Proposed Procedures p Colonoscopy 58620/z12.11/z80.0(Not Applicable) - Zan Harrell MD Last intake: Intake Last Liquid Date 01/28/22 Last Liquid Time 23:30 Last Solid Date 01/27/22 Last Solid Time 18:00 Airway Comments: Comments: Class II Metabolic [place] Neuropsych CVA with ongoing memory issues Anesthetic Plan ASA status: 3 Anesthesia: MAC Medications/Allergies Home Medications Medication Instructions Recorded Confirmed Last Taken Type aspirin 81 mg tablet,delayed 81 mg PO DAILY #30 tab 09/17/21 01/29/22 01/28/22 21:30 Rx release cholecalciferol (vitamin D3) 25 25 mcg PO DAILY 11/09/21 01/29/22 01/27/22 History mcg (1,000 unit) capsule (Vitamin D3) clopidogrel 75 mg tablet 75 mg PO DAILY 11/09/21 01/29/22 01/27/22 History cyclosporine 0.05 % eye drops in a 1 drp OPHTHALMIC (EYE) BID PRN 11/09/21 01/29/22 01/28/22 History dropperette (Restasis) duloxetine 30 mg capsule,delayed 30 mg PO BID 11/09/21 01/29/22 01/27/22 History release etodolac 400 mg tablet (Lodine) 400 mg PO TID 11/09/21 01/29/22 01/27/22 History fluticasone propionate 110 1 puff INHALATION BID 11/09/21 01/29/22 01/27/22 History mcg/actuation HFA aerosol inhaler (Flovent HFA) levalbuterol tartrate 45 1 puff INHALATION DAILY 11/09/21 01/29/22 2 Weeks Ago History mcg/actuation aerosol inhaler ~01/15/22 (Xopenex HFA) levothyroxine 125 mcg tablet 125 mcg PO DAILY 11/09/21 01/29/22 01/29/22 04:30 History (Synthroid) liothyronine 5 mcg tablet 5 mcg PO EVERY OTHER DAY 11/09/21 01/29/22 01/29/22 04:30 History lutein 6 mg capsule 6 mg PO DAILY 11/09/21 01/29/22 01/28/22 History rosuvastatin 10 mg tablet 10 mg PO DAILY 11/09/21 01/29/22 01/27/22 History secukinumab 150 mg/mL subcutaneous 150 mg SUBCUT Q30D 11/09/21 01/29/22 01/24/22 History pen injector (Cosentyx Pen 300 mg/2 Pens () sulfasalazine 500 mg 1,000 mg PO TID 11/09/21 01/29/22 01/27/22 History tablet,delayed release Allergies Allergy/AdvReac Type Severity Reaction Status Date / Time chocolate flavor Allergy ALGY-Anaphy Verified 01/29/22 07:46 laxis coconut Allergy Unknown Verified 01/29/22 07:46 iodine Allergy ALGY-Bliste Verified 01/27/22 10:50 r milk Allergy ADR-Gastrointestinal Verified 01/27/22 10:50 Upset shellfish derived Allergy ALGY-Anaphy Verified 01/27/22 10:50 laxis walnut Allergy ALGY-Anaphy Verified 01/27/22 10:50 laxis Current Medications Generic Name Dose Route Start Last Admin Trade Name Freq PRN Reason Stop Dose Admin Sodium Chloride 1,000 mls @ 30 mls/hr 01/29/22 07:30 01/29/22 08:01 Sodium Chloride 0.9% IV 01/30/22 07:29 30 mls/hr .Q24H RAJANI Administration PFSH Anesthesia Medical History (Updated 12/17/21 @ 11:10 by Zan Harrell MD) CVA (cerebral vascular accident) Hypothyroidism Psoriatic arthritis Surgical History History of colonoscopy History of hysterectomy Social History Smoking and tobacco status: never smoked Data Anesthesia Cardiac Studies: Sestamibi Stress Test (Cardiology) 10/04/21
--- NOTE | 2022-01-29 09:09 | P.HP_ITS ---
Same Day Surgery H&P Indication for Procedure/HPI DATE OF PROCEDURE: January 29, 2022 CHIEF COMPLAINT/INDICATIONFOR SURGICAL PROCEDURE: colonoscopy PREOP DIAGNOSIS: diagnostic PLANNED PROCEDURE: Operation Date: 01/29/22 09:00 Proposed Procedures p Colonoscopy 83728/z12.11/z80.0(Not Applicable) - Zan Harrell MD Medications/Allergies* Home Medications Medication Instructions Recorded Confirmed Type cholecalciferol (vitamin D3) 25 25 mcg PO DAILY 11/09/21 01/29/22 History mcg (1,000 unit) capsule (Vitamin D3) clopidogrel 75 mg tablet 75 mg PO DAILY 11/09/21 01/29/22 History cyclosporine 0.05 % eye drops in a 1 drp OPHTHALMIC (EYE) BID PRN 11/09/21 01/29/22 History dropperette (Restasis) duloxetine 30 mg capsule,delayed 30 mg PO BID 11/09/21 01/29/22 History release etodolac 400 mg tablet (Lodine) 400 mg PO TID 11/09/21 01/29/22 History fluticasone propionate 110 1 puff INHALATION BID 11/09/21 01/29/22 History mcg/actuation HFA aerosol inhaler (Flovent HFA) levalbuterol tartrate 45 1 puff INHALATION DAILY 11/09/21 01/29/22 History mcg/actuation aerosol inhaler (Xopenex HFA) levothyroxine 125 mcg tablet 125 mcg PO DAILY 11/09/21 01/29/22 History (Synthroid) liothyronine 5 mcg tablet 5 mcg PO EVERY OTHER DAY 11/09/21 01/29/22 History lutein 6 mg capsule 6 mg PO DAILY 11/09/21 01/29/22 History rosuvastatin 10 mg tablet 10 mg PO DAILY 11/09/21 01/29/22 History secukinumab 150 mg/mL subcutaneous 150 mg SUBCUT Q30D 11/09/21 01/29/22 History pen injector (Cosentyx Pen 300 mg/2 Pens () sulfasalazine 500 mg 1,000 mg PO TID 11/09/21 01/29/22 History tablet,delayed release Allergies/Adverse Reactions Allergy/AdvReac Type Severity Reaction Status Date / Time chocolate flavor Allergy ALGY-Anaphy Verified 01/29/22 07:46 laxis coconut Allergy Unknown Verified 01/29/22 07:46 iodine Allergy ALGY-Bliste Verified 01/27/22 10:50 r milk Allergy ADR-Gastrointestinal Verified 01/27/22 10:50 Upset shellfish derived Allergy ALGY-Anaphy Verified 01/27/22 10:50 laxis walnut Allergy ALGY-Anaphy Verified 01/27/22 10:50 laxis Current Medications: Generic Name Dose Route Start Last Admin Trade Name Freq PRN Reason Stop Dose Admin Sodium Chloride 1,000 mls @ 30 mls/hr 01/29/22 07:30 01/29/22 08:01 Sodium Chloride 0.9% IV 01/30/22 07:29 30 mls/hr .Q24H RAJANI Administration Pertinent History/Comorbid Conditions* Medical History (Updated 12/17/21 @ 11:10 by Zan Harrell MD) CVA (cerebral vascular accident) Hypothyroidism Psoriatic arthritis Surgical History (Updated 12/17/21 @ 10:19 by Zan Harrell MD) History of colonoscopy History of hysterectomy Social History Smoking and tobacco status: never smoked Pertinent Exam Findings alert, oriented x 3 and regular rate & rhythm Recommendations Surgery/Procedure today Coding Level of Care Code Acute Live 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
[2022-01-29 10:03] VITALS: BP 113/87; PULSE 83; RESP 16; TEMP 36.1; O2SAT 95
[2022-01-29 10:25] VITALS: BP 124/74; PULSE 81; RESP 18; O2SAT 95
--- NOTE | 2022-01-29 13:22 | ANE.PACU2 ---
Inpatient post-anesthesia follow up: Vital signs: Temperature 97.0 F Pulse Rate 81 Respiratory Rate 18 Blood Pressure 124/74 Pulse Oximetry 95 Oxygen Delivery Me thod Room Air Oxygen Flow Rate 4 Fraction of Inspir ed Oxygen Hydration adequate: Yes Nausea and vomiting: No Pain level: 1 Mental status: Baseline
== END 2022-01-29 10:30 | disposition home or self-care (01) ==
PROVIDERS: PCP Nurse Practitioner; Visit Provider Surgery
PROC: 0DJD8ZZ Inspection of Lower Intestinal Tract, Via Natural or Artificial Opening Endoscopic (ICD-10-PCS; CPT 45378; principal; 2022-01-29 09:00)
DX: Z12.11 Encounter for screening for malignant neoplasm of colon (principal); Z80.0 Family history of malignant neoplasm of digestive organs; K57.30 Diverticulosis of large intestine without perforation or abscess without bleeding; D12.2 Benign neoplasm of ascending colon; Z86.73 Personal history of transient ischemic attack (TIA), and cerebral infarction without residual deficits; E03.9 Hypothyroidism, unspecified; Z79.82 Long term (current) use of aspirin
CPT/HCPCS: 45385; 88305; J2704; J7030

== ENCOUNTER 2022-11-20 11:01 | Outpatient (CLI) | payer MEDICARE, BC, SELFPAY ==
--- NOTE | 2022-11-20 11:11 | MM_ITS ---
WS: [id number] BILATERAL SCREENING DIGITAL TOMOSYNTHESIS MAMMOGRAM WITH CAD HISTORY: SCREENING COMPARISON: 12/20/2020 and 08/12/2019 Bilateral CC and MLO views with tomosynthesis and synthetic mammography submitted. Computer aided det ection analyzed. Breast composition: There are scattered areas of fibroglandular density. No suspicious masses, microc alcifications or architectural distortion. MM/[id number] IMPRESSION: BI-RADS: 1-Negative FOLLOW UP: 1 Year Follow-up
== END 2022-11-20 11:02 | disposition home or self-care (01) ==
LOC: RAD 11:05
PROVIDERS: PCP Nurse Practitioner; Visit Provider Nurse Practitioner Family
DX: Z12.31 Encounter for screening mammogram for malignant neoplasm of breast (principal)
CPT/HCPCS: 77063; 77067

== ENCOUNTER 2023-02-23 06:00 | Outpatient (RCR) | payer MEDICARE, BC, SELFPAY | END 2023-03-23 23:59 | disposition home or self-care (01) | LOC: SOT 06:00 | PROVIDERS: Visit Provider Nurse Practitioner Family | DX: Z86.73 Personal history of transient ischemic attack (TIA), and cerebral infarction without residual deficits (principal); R53.83 Other fatigue; G31.84 Mild cognitive impairment of uncertain or unknown etiology | CPT/HCPCS: 97167; 97530 ==

== ENCOUNTER 2023-03-24 06:00 | Outpatient (RCR) | payer MEDICARE, BC, SELFPAY | END 2023-04-23 23:59 | disposition home or self-care (01) | LOC: SOT 06:00 | PROVIDERS: Visit Provider Nurse Practitioner Family | DX: Z86.73 Personal history of transient ischemic attack (TIA), and cerebral infarction without residual deficits (principal); R53.83 Other fatigue; G31.84 Mild cognitive impairment of uncertain or unknown etiology | CPT/HCPCS: 97110; 97112; 97530 ==

== ENCOUNTER 2023-04-24 06:00 | Outpatient (RCR) | payer MEDICARE, BC, SELFPAY | END 2023-05-23 23:59 | disposition home or self-care (01) | LOC: SOT 06:00 | PROVIDERS: Visit Provider Nurse Practitioner Family | DX: I69.919 Unspecified symptoms and signs involving cognitive functions following unspecified cerebrovascular disease (principal) | CPT/HCPCS: 97110; 97112; 97530 ==

== ENCOUNTER 2023-05-24 06:00 | Outpatient (RCR) | payer MEDICARE, BC, SELFPAY | END 2023-06-01 23:59 | disposition home or self-care (01) | LOC: SOT 06:00 | PROVIDERS: Visit Provider Nurse Practitioner Family | DX: I69.919 Unspecified symptoms and signs involving cognitive functions following unspecified cerebrovascular disease (principal); R53.83 Other fatigue | CPT/HCPCS: 97112; 97530 ==

== ENCOUNTER 2023-09-08 10:06 | Outpatient (CLI) | payer MEDICARE, BC, SELFPAY ==
--- NOTE | 2023-09-08 10:12 | CT_ITS ---
WS: [id number] CT HEAD TECHNIQUE: Noncontrast CT of the head obtained from the skullbase to the vertex. CLINICAL INFORMATION: DIZZINESS GIDDINESS COMPARISON: CT 11/09/2021 and MRI 09/24/2021 DLP: 1133.[address] scans at [facility] use at least one of these dose optimization techniques: automated e xposure control; mA and/or kV adjustment per patient size (includes targeted exams where dose is matc hed to clinical indication); or iterative reconstruction. FINDINGS: No evidence of intracranial hemorrhage or mass effect. Ventricular system and basal cisterns are miramontes nt. Moderate to advanced small vessel changes with moderate parenchymal volume loss. No extra-axial f luid collections. No evidence of mass or mass effect. Chronic lacunar infarcts in the cerebellum and RIGHT basal ganglia. Chronic lacunar infarcts in the thalami bilaterally. Paranasal sinuses and mastoid air cells are well aerated. .Normal visualized soft tissues. IMPRESSION: 1. No evidence of intracranial hemorrhage or mass effect. 2. Moderate to advanced small vessel changes with moderate parenchymal volume loss. 3. Intracranial vascular calcification. 4. Chronic lacunar infarcts in the RIGHT cerebellum, thalami, and RIGHT basal ganglia.. 5. No acute intracranial findings.
== END 2023-09-08 10:07 | disposition home or self-care (01) ==
LOC: RAD 10:06
PROVIDERS: PCP Nurse Practitioner Family; Visit Provider Nurse Practitioner Family
DX: R42 Dizziness and giddiness (principal); R32 Unspecified urinary incontinence
CPT/HCPCS: 70450

== ENCOUNTER 2024-01-01 11:02 | Outpatient (CLI) | payer MEDICARE, BC, OTHER, SELFPAY ==
--- NOTE | 2024-01-01 11:08 | MM_ITS ---
WS: [id number] Bilateral screening 3D tomosynthesis digital mammogram, 01/01/2024 Clinical Data: SCREEN Comparison: 11/20/2022, 12/20/2020, 08/12/2019, 03/10/2018, 02/06/2017, 11/29/2015, 08/21/2014, 05/31/2013, 11/21/2011, 05/07/2010. Findings: The breast parenchymal pattern shows fibroglandular tissue. No spiculated masses or clustered calcifi cations are seen. There are no secondary signs of carcinoma. MM/[id number] Impression: 1. Negative bilateral mammogram unchanged. 2. Recommend annual screening mammograms. BIRADS: 1-Negative FOLLOW UP: 1 Year Follow-up The CAD relay checker was used.
== END 2024-01-01 11:03 | disposition home or self-care (01) ==
LOC: RAD 11:02
PROVIDERS: PCP Nurse Practitioner Family; Visit Provider Nurse Practitioner Family
DX: Z12.31 Encounter for screening mammogram for malignant neoplasm of breast (principal)
CPT/HCPCS: 77063; 77067

== ENCOUNTER → 2024-01-12 12:58 | Outpatient (BNVA) | payer MEDICARE, BC, OTHER, SELFPAY | PROVIDERS: PCP Nurse Practitioner Family; Visit Provider Nurse Practitioner Family | DX: D48.5 Neoplasm of uncertain behavior of skin (principal); L82.0 Inflamed seborrheic keratosis; L40.0 Psoriasis vulgaris; S20.309A Unspecified superficial injuries of unspecified front wall of thorax, initial encounter; X58.XXXA Exposure to other specified factors, initial encounter; L82.1 Other seborrheic keratosis; D22.5 Melanocytic nevi of trunk; L81.4 Other melanin hyperpigmentation | CPT/HCPCS: 11102; 17110; 99204 ==

== ENCOUNTER → 2024-05-12 13:54 | Outpatient (BNVA) | payer MEDICARE, BC, OTHER, SELFPAY | PROVIDERS: PCP Nurse Practitioner Family; Visit Provider Nurse Practitioner Family | DX: D04.5 Carcinoma in situ of skin of trunk (principal); L85.3 Xerosis cutis | CPT/HCPCS: 99213 ==

== ENCOUNTER → 2024-05-23 11:20 | Outpatient (BNVA) | payer MEDICARE, BC, OTHER, SELFPAY | PROVIDERS: PCP Nurse Practitioner Family; Visit Provider Dermatology | DX: D04.5 Carcinoma in situ of skin of trunk (principal); L82.1 Other seborrheic keratosis; L72.0 Epidermal cyst; D22.39 Melanocytic nevi of other parts of face | CPT/HCPCS: 99213 ==

== ENCOUNTER 2024-08-27 08:10 | Emergency (ER) | payer BC, MEDICARE, SELFPAY ==
--- NOTE | 2024-08-27 08:16 | CTR_ITS ---
PROCEDURE INFORMATION: Exam: CT Head Without Contrast Exam date and time: 08/27/2024 8:10 AM Age: 69 years old Clinical indication: Stroke-like symptoms; Altered mental status/memory loss; Additional info: Symptoms of acute stroke TECHNIQUE: Imaging protocol: Computed tomography of the head without contrast. Radiation optimization: All CT scans at this facility use at least one of these dose optimization techniques: automated exposure control; mA and/or kV adjustment per patient size (includes targeted exams where dose is matched to clinical indication); or iterative reconstruction. Other technique: STROKE PROTOCOL was implemented. COMPARISON: CT head wo con* [id number] 09/08/2023 10:45 AM RADIATION DOSE METRICS: Total DLP (mGy-cm): 969.18 FINDINGS: Brain: Diffuse cerebral atrophy, consistent with patient's age. No hemorrhage. No evidence of acute territorial infarction. Stable chronic lacunar infarcts at the bilateral basal ganglia, right thalamus, and right cerebellum. Diffuse bilateral cerebral white matter hypoattenuation likely on the basis of chronic microvascular ischemic change. No mass effect. Cerebral ventricles: Ventricles are in proportion to the degree of atrophy. Paranasal sinuses: Visualized sinuses are unremarkable. No fluid levels. Mastoid air cells: Visualized mastoid air cells are well aerated. Bones: Unremarkable. No acute fracture. Soft tissues: Unremarkable. Vasculature: Bilateral ICA and vertebral artery calcifications. CT/CT head thrombolytic [id number] IMPRESSION: No acute intracranial findings. ASSESSMENT: ASPECTS ([place] Stroke Program Early CT Score) is 10.
--- NOTE | 2024-08-27 08:17 | ED_ITS ---
HPI - Neuro Symptoms/Deficit 2 General: Chief Complaint: Neuro Symptoms/Deficit Stated Complaint: AMS Time Seen by Provider: 08/27/24 08:10 History of Present Illness: Six 9-year-old female arrives by EMS as a stroke alert from the senior care. Patient previously had a stroke her last known well was sometime last night where they were given to the exact time initially. They state normally she talks she has significant aphasia this morning. She has previously had a stroke she is not on any anticoagulants. No recent falls or trauma or reported. Nursing staff called senior care. They report the patient usually walks with assist and is able to verbalize this is a definitive change for her. They gave her last doing well at 630 or 7:00 last evening. Patient also has some dementia. Confirmed she is not on any anticoagulants. Related Data Home Medications Medication Instructions Recorded Confirmed clopidogrel 75 mg tablet 75 mg PO DAILY 11/09/21 08/27/24 rosuvastatin 10 mg tablet 10 mg PO DAILY 11/09/21 08/27/24 acetaminophen 325 mg tablet 325 mg PO QID PRN Pain 08/27/24 08/27/24 (Tylenol) aluminum-mag hydroxide-simethicone 30 ml PO Q4H PRN Indigestion 08/27/24 08/27/24 400 mg-400 mg-40 mg/5 mL oral susp (Mylanta Maximum Strength) amoxicillin 875 mg-potassium 1 tab PO BID 08/27/24 08/27/24 clavulanate 125 mg tablet bisacodyl 5 mg tablet,delayed 10 mg PO DAILY PRN constipation 08/27/24 08/27/24 release cholecalciferol (vitamin D3) 10 10 mcg PO DAILY 08/27/24 08/27/24 mcg (400 unit) capsule cyclobenzaprine 5 mg tablet 5 mg PO TID PRN pain/spasms 08/27/24 08/27/24 diclofenac sodium 1 % topical gel 2 g topical QID PRN Pain 08/27/24 08/27/24 duloxetine 60 mg capsule,delayed 60 mg PO DAILY 08/27/24 08/27/24 release fluticasone propionate 110 2 puff inhalation BID PRN sob 08/27/24 08/27/24 mcg/actuation HFA aerosol inhaler levothyroxine 175 mcg tablet See Rx Instructions .Route .COMPLEX 08/27/24 08/27/24 (Synthroid) meclizine 12.5 mg tablet 12.5 mg PO Q8H PRN Dizziness Or 08/27/24 08/27/24 Vertigo memantine 10 mg tablet 10 mg PO BID 08/27/24 08/27/24 metoclopramide HCl 5 mg tablet 5 mg PO DAILY 08/27/24 08/27/24 (Reglan) byhgrucpilnb-ljgnntkh-obbyw acid 1 cap PO DAILY 08/27/24 08/27/24 400 mcg-vitamin K 80 mcg capsule (Multi For Her 50 Plus) rivastigmine tartrate 3 mg capsule 3 mg PO DAILY 08/27/24 08/27/24 Previous Rx's Medication Instructions Recorded aspirin 81 mg tablet,delayed 81 mg PO DAILY #30 tabs 09/17/21 release Allergies Allergy/AdvReac Type Severity Reaction Status Date / Time chocolate flavor Allergy ALGY-Anaphy Verified 01/29/22 07:46 laxis coconut Allergy Unknown Verified 01/29/22 07:46 iodine Allergy ALGY-Bliste Verified 01/27/22 10:50 r milk Allergy ADR-Gastrointestinal Verified 01/27/22 10:50 Upset shellfish derived Allergy ALGY-Anaphy Verified 01/27/22 10:50 laxis walnut Allergy ALGY-Anaphy Verified 01/27/22 10:50 laxis Review of Systems 2 General: Reports: ROS unobtainable due to medical condition and ROS unobtainable due to mental status PFSH ED 2 PFSH: Medical History Hypothyroidism Psoriatic arthritis CVA (cerebral vascular accident) Surgical History History of colonoscopy (01/29/22) History of hysterectomy Social History Smoking and tobacco/nicotine status: never used tobacco/nicotine NIH stroke score 2 NIHSS: Level Of Consciousness - 1a: 2 Level Of Consciousness Questions - 1b: Neither Correct Level Of Consciousness Commands - 1c: Both Correct B est Gaze - 2: Normal Visual Crews - 3: No Visual Loss Facial Palsy - 4: N ormal Motor Arm Right - 5: Drift Motor Arm Left - 5: No Drift Motor Leg Right - 6: No Drift Motor Leg Left - 6: No Drift Limb Ataxia - 7: Absent (Difficult to assess patient has a tremor in the right hand) Sensory - 8: N ormal Best Language - 9: Mild/Moderate Aphasia Dysarthia - 10: M ild/Moderate Dysarthia Extinction And Inattention - 11: 0 Score: Total Score: 7 Physical Exam 2 HENMT: COMMON NORMALS: normocephalic, atraumatic and hearing grossly normal bilaterally HEAD & SCALP: normocephalic and atraumatic Resp: COMMON NORMALS: normal respiratory effort, No retractions, No use of accessory muscles and clear to auscultation bilaterally AUSCULTATION: clear to auscultation bilaterally Cardio: COMMON NORMALS: regular rate, regular rhythm and No murmurs present (Cardio) RATE: regular rate RHYTHM: regular rhythm GI: COMMON NORMALS: Soft to palpation and No hepatosplenomegaly present A USCULTATION: Yes normoactive bowel sounds PALPATION: Yes Soft to palpation, No Tenderness to palpation present (GI), No Guarding due to palpation present (GI) and Yes No hepatosplenomegaly present Extremity: COMMON NORMALS: normal to inspection, capillary refill normal, no clubbing, cyanosis or edema, no calf tenderness and no pedal edema Skin: COMMON NORMALS: no rashes or lesions noted GENERAL SKIN EXAM: no rashes or lesions noted Course 2 Vital Signs: Vital signs: Vital Signs Temperature 97.4 F L 08/27/24 08:19 Pulse Rate 73 08/27/24 11:49 Respiratory Rate 16 08/27/24 08:19 Blood Pressure 144/83 08/27/24 11:49 Pulse Oximetry 98 08/27/24 11:49 Oxygen Delivery Me thod Room Air 08/27/24 08:19 MDM - Neuro Symptoms/Deficit Medical Decision Making arrived patient per his report has had symptoms for 5 days nothing acute on the CT of the head or the CTA of the head and neck. Will discharge the patient home. We have discussed with the he would prefer that she go back to the senior care there is really not a lot at this point we would do as an inpatient. She should continue the current oral antibiotics. Further follow-up through the primary care doctor at the senior care. Near the end of the visit the related that she was complaining some chest pain. Troponin and EKG were done no acute changes noted. Medical Records I reviewed the patient's medical records. Lab Data I reviewed the patient's lab results. 08/27/24 08:23 08/27/24 08:[address] 08/27/24 08:16 IMPRESSION: No acute intracranial findings. ASSESSMENT: ASPECTS (Jeimy Stroke Program Early CT Score) is 10. ADDENDUM: 08/27/2442 Results of this examination were communicated by phone to CHACORTA CARDENAS at 8:40 AM BIOLOGY MANAGER on 08/27/2024, with the receiving practitioner acknowledging understanding of exam results. Head/Neck CTA 08/27/24 08:26 IMPRESSION: No large vessel stenosis or occlusion. IMPRESSION: No stenosis or occlusion. REFERENCES: NASCET CRITERIA. The degree of stenosis in the cervical segment of the internal carotid artery is based on NASCET criteria. Normal is no stenosis. Mild is less than 50% stenosis. Moderate is 50-69% stenosis. Severe is 70% to 99% stenosis. Total occlusion is no detectable patent lumen. Laboratory Results WBC 8.56 10^3/uL (3.29-11.43) 08/27/24 08:23 RBC 4.92 10^6/uL (3.85-5.65) 08/27/24 08:23 Hgb 13.90 g/dL (11.27-16.99) 08/27/24 08:23 Hct 43.9 % (36-47) 08/27/24 08:23 MCV 89.2 fl (85-98) 08/27/24 08:23 MCH 28.3 pg (27-33) 08/27/24 08:23 MCHC 31.7 g/dL (30-55) 08/27/24 08:23 RDW 13.9 % (12.1-15.1) 08/27/24 08:23 Plt Count 223 10^3/cmm (157-399) 08/27/24 08:23 MPV 11.1 fL (7.4-10.4) H 08/27/24 08:23 Neut % (Auto) 78.2 % 08/27/24 08:23 Lymph % (Auto) 11.0 % 08/27/24 08:23 [place] % (Auto) 8.6 % 08/27/24 08:23 Eos % (Auto) 1.3 % 08/27/24 08:23 Baso % (Auto) 0.7 % 08/27/24 08:23 Neut # (Auto) 6.69 10^3/uL (1.8-7.7) 08/27/24 08:23 Lymph # (Auto) 0.9 10^3/uL (0.8-4.8) 08/27/24 08:23 [place] # (Auto) 0.7 10^3/uL (0.2-0.9) 08/27/24 08:23 Eos # (Auto) 0.1 10^3/uL (0.0-0.8) 08/27/24 08:23 Baso # (Auto) 0.1 10^3/uL (0.0-0.1) 08/27/24 08:23 Nucleated RBC % (auto) 0 % 08/27/24 08:23 Nucleated RBCs # 0.0 /100WBC 08/27/24 08:23 PT 14.00 SECONDS (12.1-14.9) 08/27/24 08:23 INR 1.01 (0.8-1.2) 08/27/24 08:23 APTT 31.0 SECONDS (23.9-36.7) 08/27/24 08:23 Sodium 142 mmol/L (136-145) 08/27/24 08:23 Potassium 3.6 mmol/L (3.5-5.1) 08/27/24 08:23 Chloride 103 mmol/L (98-107) 08/27/24 08:23 Carbon Dioxide 22 mmol/L (22-29) 08/27/24 08:23 Anion Gap 20.6 (5-19) H 08/27/24 08:23 BUN 27 mg/dL (8-23) H 08/27/24 08:23 Creatinine 0.6 mg/dL (0.5-0.9) 08/27/24 08:23 GFR Calculation 99.1 mL/min (90-130) 08/27/24 08:23 Glucose 112 mg/dL (65-115) 08/27/24 08:23 POC Glucose 122 mg/dL (70-110) H 08/27/24 08:18 Calculated Osmolality 300 mOsm/kg (285-295) H 08/27/24 08:23 Calcium 9.6 mg/dL (8.5-10.5) 08/27/24 08:23 Total Bilirubin 0.5 mg/dL (0.15-1.2) 08/27/24 08:23 AST 15 U/L (0-32) 08/27/24 08:23 ALT 9 U/L (0-33) 08/27/24 08:23 Alkaline Phosphatase 86 U/L (35-105) 08/27/24 08:23 Troponin T Baseline < 6 ng/L (0-10) 08/27/24 08: Troponin T 120 Minute 6.00 ng/L (0-10) 08/27/24 10:23 Delta Troponin T 0.85864 ABS# (0-10) 08/27/24 10:23 Total Protein 7.5 g/dL (6.6-8.7) 08/27/24 08:23 Albumin 4.4 g/dL (3.5-5.2) 08/27/24 08:23 Globulin 3.1 g/dL (1.3-4.6) 08/27/24 08:23 Urine Color Dark yellow (Yellow) A 08/27/24 09:04 Urine Appearance Clear (CLEAR) 08/27/24 09:04 Urine pH 5.5 (5-7) 08/27/24 09:04 Ur Specific [place] 1.031 (1.005-1.030) H 08/27/24 09:04 Urine Protein 1+ (Negative) A 08/27/24 09:04 Urine Glucose (UA) Negative (Normal) 08/27/24 09:04 Urine Ketones 4+ (Negative) 08/27/24 09:04 Urine Blood 1+ (Negative) A 08/27/24 09:04 Urine Nitrate Negative (Negative) 08/27/24 09:04 Urine Bilirubin 1+ (Negative) H 08/27/24 09:04 Urine Urobilinogen 1.0 mg/dL (Negative) 08/27/24 09:04 Ur Leukocyte Esterase Trace (Negative) A 08/27/24 09:04 Urine RBC 3-5 /hpf (0-2) 08/27/24 09:04 Urine WBC 11-20 /hpf (0-5) H 08/27/24 09:04 Ur Squamous Epith Cells 0-5 /hpf (0-5) 08/27/24 09:04 Amorphous Sediment Not Reportable 08/27/24 09:04 Urine Bacteria 4+ /hpf (NONE) H 08/27/24 09:04 Hyaline Casts 2.87 /lpf 08/27/24 09:04 Urine Opiates Screen Negative ng/mL (Negative) 08/27/24 09:04 Ur Barbiturates Screen Negative ng/mL (Negative) 08/27/24 09:04 Ur Phencyclidine Scrn Negative ng/mL (Negative) 08/27/24 09:04 Ur Amphetamines Screen Negative ng/mL (Negative) 08/27/24 09:04 U Benzodiazepines Scrn Negative ng/mL (Negative) 08/27/24 09:04 Urine Cocaine Screen Negative ng/mL (Negative) 08/27/24 09:04 U Marijuana (THC) Screen Negative ng/mL (Negative) 08/27/24 09:04 All radiology interpretation(s) finalized by discharge Discharge Plan Discharge Patient Disposition: Home Clinical Impression: CVA (cerebral vascular accident), Chest pain, atypical, Cystitis Condition: Stable Prescriptions: No Action aspirin 81 mg tablet,delayed release (DR/EC) 81 mg PO DAILY Qty: 30 0RF levothyroxine [Synthroid] 175 mcg tablet See Rx Instructions .ROUTE .COMPLEX Rx Instructions: Take one Half a Tablet by mouth on Thursday ,Thursday thru Thursday take by mouth 1 tablet . meclizine 12.5 mg tablet 12.5 mg PO Q8H PRN (Reason: Dizziness Or Vertigo) metoclopramide HCl [Reglan] 5 mg Tablet 5 mg PO DAILY bisacodyl 5 mg Tablet,Delayed Release (Dr/Ec) 10 mg PO DAILY PRN (Reason: constipation ) rivastigmine tartrate 3 mg capsule 3 mg PO DAILY fluticasone propionate [Flovent HFA] 110 mcg/actuation Hfa Aerosol Inhaler 2 puff INHALATION BID PRN (Reason: sob) alum-mag hydroxide-simeth [Mylanta Maximum Strength] 400-400-40 mg/5 mL Suspension 30 ml PO Q4H PRN (Reason: Indigestion) amoxicillin-pot clavulanate 875-125 mg tablet 1 tab PO BID cholecalciferol (vitamin D3) 10 mcg (400 unit) Capsule 10 mcg PO DAILY cyclobenzaprine 5 mg tablet 5 mg PO TID PRN (Reason: pain/spasms) memantine 10 mg tablet 10 mg PO BID duloxetine 60 mg capsule,delayed release(DR/EC) 60 mg PO DAILY Multi For Her 50 Plus 400-80 mcg Capsule 1 cap PO DAILY acetaminophen [Tylenol] 325 mg Tablet 325 mg PO QID PRN (Reason: Pain) diclofenac sodium [Voltaren] 1 % Gel 2 g TOPICAL QID PRN (Reason: Pain) clopidogrel 75 mg tablet 75 mg PO DAILY rosuvastatin 10 mg tablet 10 mg PO DAILY Discharge Orders: Discharge ED (Routine); Ordered 08/27/24 Ordered By: Chacorta Hubbard Referrals: Leona Wilder COLOR CHECKER [Primary Care Provider] - Discharge Diet: Advance as tolerated Discharge Activity: Increase activity as tolerated Patient Instructions: Opioid Safety, Pain Management Activity Restrictions/Additional Instructions: Thank you for choosing [facility] for your healthcare needs today. It is very important that you follow up as instructed or that you return to the Emergency Department should you have concerns or if your condition changes or worsens in any way. You were seen today for the possibility of a stroke. CT and CTA of the head and neck did not show any acute changes. Your reported that the symptoms initially began approximately 5 days ago. Suspect you may have had a stroke however given the timeframe so there is no interventions at this time continue current medications you are already on aspirin and clopidogrel as well as rosuvastatin. Your primary care doctor can arrange for therapies at the senior care. Continue the oral antibiotics that were started for the bladder infection. While the there are still signs of infection your white count is not elevated. Coding Level of Care Code ED Degree Clerk for [place]le
[2024-08-27 08:19] VITALS: BP 132/76; BP 136/78; PULSE 73; RESP 16; TEMP 36.3; O2SAT 97
[2024-08-27 08:20] LABS: Glucose Point of Care 122 mg/dL (70-110)
--- NOTE | 2024-08-27 08:25 | ECG_ITS ---
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 Measurements Intervals [place] Rate: 72 P: 24 [place]: 168 QRS: -60 QRSD: 126 T: 72 QT: 426 QTc: 467 Interpretive Statements SINUS RHYTHM LEFT AXIS DEVIATION [QRS AXIS < -30] ANTEROSEPTAL MYOCARDIAL INFARCTION , OF INDETERMINATE AGE [40+ ms Q WAVE IN V1-V4] Compared to ECG 11/09/2021 11:56:59 Left-axis deviation now present T-wave abnormality no longer present Possible ischemia no longer present Myocardial infarct finding still present Electronically Signed On 08-27-2024 21:27:26 HARNESS TIER by Marie Son M.D. [email or web address]
--- NOTE | 2024-08-27 08:26 | CTR_ITS ---
PROCEDURE INFORMATION: Exam: CTA Head With Contrast, Arteriography Exam date and time: 08/27/2024 8:39 AM Age: 69 years old Clinical indication: Weakness and other: AMS; Additional info: Acute CVA TECHNIQUE: Imaging protocol: Computed tomographic angiography of the head with contrast. Exam focused on the arteries. 3D rendering (Not supervised by radiologist): MIP and/or 3D reconstructed images were created by the technologist. Radiation optimization: All CT scans at this facility use at least one of these dose optimization techniques: automated exposure control; mA and/or kV adjustment per patient size (includes targeted exams where dose is matched to clinical indication); or iterative reconstruction. Contrast material: OMNI 350; Contrast volume: 100 ml; Contrast route: INTRAVENOUS (IV); COMPARISON: 1. CT head thrombolytic [id number] 08/27/2024 8:[address] angio headneck* [id number] 12/21/2018 11:13 AM RADIATION DOSE METRICS: Total DLP (mGy-cm): 447.41 FINDINGS: ANTERIOR CIRCULATION: Right internal carotid artery: Intracranial segment is patent with no significant stenosis. No aneurysm. Atherosclerotic calcification along the carotid siphon. Right middle cerebral artery: No occlusion or significant stenosis. No aneurysm. Right anterior cerebral artery: No occlusion or significant stenosis. No aneurysm. Left internal carotid artery: Intracranial segment is patent with no significant stenosis. No aneurysm. Atherosclerotic calcification along the carotid siphon. Left middle cerebral artery: No occlusion or significant stenosis. No aneurysm. Left anterior cerebral artery: No occlusion or significant stenosis. No aneurysm. POSTERIOR CIRCULATION: Right vertebral artery: Atherosclerosis without occlusion or significant stenosis. No aneurysm. Left vertebral artery: Atherosclerosis without occlusion or significant stenosis. No aneurysm. Basilar artery: No occlusion or significant stenosis. No aneurysm. Right posterior cerebral artery: No occlusion or significant stenosis. No aneurysm. Left posterior cerebral artery: No occlusion or significant stenosis. No aneurysm. Brain: No definite mass, mass effect, or midline shift. Stable multifocal chronic lacunar infarcts and diffuse bilateral cerebral hypoattenuation likely on the basis of chronic microvascular ischemic change. Cerebral ventricles: No hydrocephalus. Bones/joints: Unremarkable. No acute fracture. Soft tissues: Unremarkable. PROCEDURE INFORMATION: Exam: CTA Neck With Contrast Exam date and time: 08/27/2024 8:39 AM Age: 69 years old Clinical indication: Weakness and other: AMS; Additional info: Acute CVA TECHNIQUE: Imaging protocol: Computed tomographic angiography of the neck with contrast. Exam focused on the cervical segments of the vasculature. 3D rendering (Not supervised by radiologist): MIP and/or 3D reconstructed images were created by the technologist. Radiation optimization: All CT scans at this facility use at least one of these dose optimization techniques: automated exposure control; mA and/or kV adjustment per patient size (includes targeted exams where dose is matched to clinical indication); or iterative reconstruction. Contrast material: OMNI 350; Contrast volume: 100 ml; Contrast route: INTRAVENOUS (IV); COMPARISON: 1. CT angio headneck* [id number] 12/21/2018 11:[address] head thrombolytic [id number] 08/27/2024 8:10 AM RADIATION DOSE METRICS: Total DLP (mGy-cm): 447.41 FINDINGS: Right common carotid artery: Atherosclerosis without significant stenosis. No dissection or occlusion. Right internal carotid artery: Atherosclerosis without significant stenosis of the extracranial segment. No dissection or occlusion. Right external carotid artery: No occlusion or stenosis of the origin. Left common carotid artery: Atherosclerosis without significant stenosis. No dissection or occlusion. Left internal carotid artery: No stenosis of the extracranial segment. No dissection or occlusion. Left external carotid artery: No occlusion or stenosis of the origin. Right vertebral artery: No stenosis. No dissection or occlusion. Left vertebral artery: No stenosis. No dissection or occlusion. Soft tissues: Unremarkable. No significant soft tissue swelling. Bones/joints: No acute fracture. CT[facility] [id number] IMPRESSION: No large vessel stenosis or occlusion. IMPRESSION: No stenosis or occlusion. REFERENCES: NASCET CRITERIA. The degree of stenosis in the cervical segment of the internal carotid artery is based on NASCET criteria. Normal is no stenosis. Mild is less than 50% stenosis. Moderate is 50-69% stenosis. Severe is 70% to 99% stenosis. Total occlusion is no detectable patent lumen.
--- NOTE | 2024-08-27 08:26 | PC.NURSE ---
per [facility] staff pt LNW was [id number] 08/26/2024 before bed. pt awoke with L sided weakness and L facial droop. pt takes Plavix, baseline can walk with x1 assist, pt can talk--denies chronic deficits.
[2024-08-27 08:29] LABS: Basophils # 0.1 10^3/uL (0.0-0.1); Basophils % 0.7 %; Eosinophils # 0.1 10^3/uL (0.0-0.8); Eosinophils % 1.3 %; Hematocrit 43.9 % (36-47); Lymphocytes # 0.9 10^3/uL (0.8-4.8); Mean Corpuscular HGB Conc 31.7 g/dL (30-55); Mean Corpuscular Hemoglobin 28.3 pg (27-33); Mean Corpuscular Volume 89.2 fl (85-98); Mean Platelet Volume 11.1 fL (7.4-10.4); Monocytes # 0.7 10^3/uL (0.2-0.9); Monocytes % 8.6 %; Neutrophils # 6.69 10^3/uL (1.8-7.7); Neutrophils % 78.2 %; Nucleated Red Blood Cells % 0 %; Platelet Count 223 10^3/cmm (157-399); Red Blood Count 4.92 10^6/uL (3.85-5.65); Red Cell Distribution Width 13.9 % (12.1-15.1); White Blood Count 8.56 10^3/uL (3.29-11.43)
[2024-08-27 08:41] LABS: INR 1.01 (0.8-1.2)
[2024-08-27 08:46] LABS: Alanine Aminotransferase 9 U/L (0-33); Albumin Level 4.4 g/dL (3.5-5.2); Alkaline Phosphatase 86 U/L (35-105); Anion Gap 20.6 (5-19); Aspartate Amino Transferase 15 U/L (0-32); Blood Urea Nitrogen 27 mg/dL (8-23); Calcium 9.6 mg/dL (8.5-10.5); Carbon Dioxide 22 mmol/L (22-29); Chloride 103 mmol/L (98-107); Creatinine Clr Calc Pharmacy 71.6522; Globulin 3.1 g/dL (1.3-4.6); Glomerular Filtration Rate 99.1 mL/min (90-130); Glucose 112 mg/dL (65-115); Osmolality Calculated 300 mOsm/kg (285-295); Potassium 3.6 mmol/L (3.5-5.1); Sodium 142 mmol/L (136-145); Total Bilirubin 0.5 mg/dL (0.15-1.2); Total Protein 7.5 g/dL (6.6-8.7)
[2024-08-27] MEDS: iohexol 350 mg/mL 500 mL Btl (per mL) IV (08:46)
[2024-08-27 09:23] LABS: Bilirubin Urine 1+ (Negative); Blood Urine 1+ (Negative); Glucose Urine UA Negative (Normal); Ketones Urine 4+ (Negative); Leukocyte Esterase Urine Trace (Negative); Nitrate Urine Negative (Negative); Protein Urine 1+ (Negative); Urine Appearance Clear (CLEAR); Urine Color Dark Yellow (Yellow); pH Urine 5.5 (5-7)
[2024-08-27 09:25] LABS: Add Urine Microscopic? YES; Bacteria Urine 4+ /hpf; Hyaline Casts Urine 2.87 /lpf; Squamous Epithelial Cell Urine 0-5 /hpf (0-5)
[2024-08-27 09:30] LABS: Amphetamines Screen Urine Negative (Negative); Barbiturates Screen Urine Negative (Negative); Benzodiazepines Screen Urine Negative (Negative); Cocaine Screen Urine Negative (Negative); Opiate Screen Urine Negative (Negative); PCP Screen Urine Negative (Negative); THC Screen Urine Negative (Negative)
[2024-08-27 09:38] LABS: Specific Gravity, Urine 1.031 (1.005-1.030); UA Slide Review UA Slide Review Perf
[2024-08-27 09:39] LABS: Add Urine Culture? Yes
--- NOTE | 2024-08-27 10:04 | PC.NURSE ---
pt family brought personal toothbrush/paste and providing oral care to pt.
[2024-08-27 11:07] VITALS: BP 146/76; PULSE 83; O2SAT 93
[2024-08-27 11:07] LABS: Troponin(5th) Baseline < 6 ng/L (0-10)
[2024-08-27] MEDS: lidocaine 2% viscous 15 ML, aluminum-mag hydrox-simethicon 30 ML, sucralfate oral liq 1 GM PO (11:17)
[2024-08-27] MEDS: cefTRIAXone 1,000 mg SDV 1000 MG IVP (11:17)
[2024-08-27 11:18] LABS: Troponin 5 2HR Delta 0.00001 ABS# (0-10)
[2024-08-27 11:49] VITALS: BP 144/83; PULSE 73; O2SAT 98
== END 2024-08-27 11:49 | disposition home or self-care (01) ==
PROVIDERS: Emergency Provider Family Medicine; PCP Nurse Practitioner Family
DX: I63.9 Cerebral infarction, unspecified (principal); R07.89 Other chest pain; N30.90 Cystitis, unspecified without hematuria
CPT/HCPCS: 36415; 36416; 70450; 70496; 70498; 80053; 80306; 81001; 82962; 84484; 85025; 85610; 85730; 87077; 87086; 87186; 93005; 96374; 99285; J0696

== ENCOUNTER 2024-09-08 07:20 | Inpatient (IN) | payer MEDICARE, SELFPAY ==
[2024-09-08] VITALS (7 sets, daily range): BP systolic 115–129; BP diastolic 65–92; PULSE 90–96; RESP 17–20; TEMP 36.4–36.7; O2SAT 93–98; BMI 22.4
--- NOTE | 2024-09-08 07:11 | ECG_ITS ---
[facility] [employer] [facility] Test Date: 2024-09-08 Pat Name: Dalila Gamez Department: Room: Gender: Female Telephone Interviewer: : 1955 Requested By: Tenzin Bailey Order Number: [id number] Ian MD: MARGARITA BUCKNER Measurements Intervals [place] Rate: 99 P: -18 [place]: 137 QRS: -66 QRSD: 105 T: 77 QT: 374 QTc: 481 Interpretive Statements SINUS RHYTHM LEFT AXIS DEVIATION [QRS AXIS < -30] INCOMPLETE RIGHT BUNDLE BRANCH BLOCK [90+ ms QRS DURATION, TERMINAL R IN V1/V2, 40+ ms S IN I/aVL/V4/V5/V6] ANTEROSEPTAL MYOCARDIAL INFARCTION , PROBABLY OLD [40+ ms Q WAVE IN V1-V4] INTERPRETATION BASED ON A DEFAULT AGE OF 40 YEARS Compared to ECG 08/27/2024 08:25:47 Incomplete right bundle-branch block now present Myocardial infarct finding still present Electronically Signed On 09-09-2024 23:27:36 MAKING DEPARTMENT PREPARER by MARGARITA BUCKNER [id number]
[2024-09-08 07:32] LABS: Basophils # 0.1 10^3/uL (0.0-0.1); Basophils % 0.8 %; Eosinophils # 0.3 10^3/uL (0.0-0.8); Eosinophils % 2.3 %; Hematocrit 48.2 % (36-47); Lymphocytes # 2.6 10^3/uL (0.8-4.8); Lymphocytes % 23.9 %; Mean Corpuscular HGB Conc 29.7 g/dL (30-55); Mean Corpuscular Hemoglobin 27.9 pg (27-33); Mean Corpuscular Volume 94.1 fl (85-98); Mean Platelet Volume 14.3 fL (7.4-10.4); Monocytes # 0.9 10^3/uL (0.2-0.9); Neutrophils # 7.12 10^3/uL (1.8-7.7); Neutrophils % 64.6 %; Nucleated Red Blood Cells % 0 %; Platelet Count 146 10^3/cmm (157-399); Red Blood Count 5.12 10^6/uL (3.85-5.65); Red Cell Distribution Width 14.4 % (12.1-15.1); White Blood Count 11.01 10^3/uL (3.29-11.43)
[2024-09-08 07:45] LABS: Alanine Aminotransferase 69 U/L (0-33); Albumin Level 4.4 g/dL (3.5-5.2); Alkaline Phosphatase 85 U/L (35-105); Anion Gap 15.9 (5-19); Aspartate Amino Transferase 38 U/L (0-32); Blood Urea Nitrogen 35 mg/dL (8-23); Calcium 9.5 mg/dL (8.5-10.5); Carbon Dioxide 27 mmol/L (22-29); Chloride 120 mmol/L (98-107); Globulin 2.8 g/dL (1.3-4.6); Glomerular Filtration Rate 49.2 mL/min (90-130); Glucose 113 mg/dL (65-115); Osmolality Calculated 337 mOsm/kg (285-295); Potassium 3.9 mmol/L (3.5-5.1); Sodium 159 mmol/L (136-145); Total Bilirubin 0.5 mg/dL (0.15-1.2); Total Protein 7.2 g/dL (6.6-8.7)
--- NOTE | 2024-09-08 09:02 | ED_ITS ---
HPI - General Adult 2 General: Chief complaint: General Medical Stated complaint: high sodium History of Present Illness: Patient presents from care home for reported hyper natremia. History is limited from the care home. The nurse did call the care home to obtain further history. Patient apparently had labs done including urinalysis and was found to have hyper natremia so she was sent here. No reported fall. Patient has no complaints for me here. She denies any headache or chest pain. She denies abdominal pain vomiting or diarrhea. She did complain of nausea. The had reported to the nurse that the patient complains of intermittent epigastric pain which apparently is chronic. Patient denies any fall or injury. Patient reportedly at baseline mental status according to care home and EMS. Related Data Home Medications Medication Instructions Recorded Confirmed clopidogrel 75 mg tablet 75 mg PO DAILY 11/09/21 09/08/24 rosuvastatin 10 mg tablet 10 mg PO DAILY 11/09/21 09/08/24 acetaminophen 325 mg tablet 325 mg PO QID PRN Pain 08/27/24 09/08/24 (Tylenol) aluminum-mag hydroxide-simethicone 30 ml PO Q4H PRN Indigestion 08/27/24 09/08/24 400 mg-400 mg-40 mg/5 mL oral susp (Mylanta Maximum Strength) amoxicillin 875 mg-potassium 1 tab PO BID 08/27/24 09/08/24 clavulanate 125 mg tablet bisacodyl 5 mg tablet,delayed 10 mg PO DAILY PRN constipation 08/27/24 09/08/24 release cholecalciferol (vitamin D3) 10 10 mcg PO DAILY 08/27/24 09/08/24 mcg (400 unit) capsule cyclobenzaprine 5 mg tablet 5 mg PO TID PRN pain/spasms 08/27/24 09/08/24 diclofenac sodium 1 % topical gel 2 g topical QID PRN Pain 08/27/24 09/08/24 duloxetine 60 mg capsule,delayed 60 mg PO DAILY 08/27/24 09/08/24 release fluticasone propionate 110 2 puff inhalation BID PRN sob 08/27/24 09/08/24 mcg/actuation HFA aerosol inhaler levothyroxine 175 mcg tablet See Rx Instructions .Route .COMPLEX 08/27/24 09/08/24 (Synthroid) meclizine 12.5 mg tablet 12.5 mg PO Q8H PRN Dizziness Or 08/27/24 09/08/24 Vertigo memantine 10 mg tablet 10 mg PO BID 08/27/24 09/08/24 metoclopramide HCl 5 mg tablet 5 mg PO DAILY 08/27/24 09/08/24 (Reglan) cllapxusgiyj-dftcyhsb-ulcto acid 1 cap PO DAILY 08/27/24 09/08/24 400 mcg-vitamin K 80 mcg capsule (Multi For Her 50 Plus) rivastigmine tartrate 3 mg capsule 3 mg PO DAILY 08/27/24 09/08/24 Previous Rx's Medication Instructions Recorded aspirin 81 mg tablet,delayed 81 mg PO DAILY #30 tabs 09/17/21 release Allergies Allergy/AdvReac Type Severity Reaction Status Date / Time almond Allergy Unknown Verified 09/08/24 08:04 chocolate flavor Allergy ALGY-Anaphy Verified 01/29/22 07:46 laxis coconut Allergy Unknown Verified 01/29/22 07:46 codeine Allergy Unknown Verified 09/08/24 08:04 gluten Allergy Unknown Verified 09/08/24 08:04 iodine Allergy ALGY-Bliste Verified 01/27/22 10:50 r milk Allergy ADR-Gastrointestinal Verified 01/27/22 10:50 Upset ondansetron [From Zofran] Allergy Unknown Verified 09/08/24 08:04 petrolatum,white Allergy Unknown Verified 09/08/24 08:04 [From Petroleum Jelly] povidone-iodine Allergy Unknown Verified 09/08/24 08:04 [From Betadine] rye grass Allergy Unknown Verified 09/08/24 08:04 shellfish derived Allergy ALGY-Anaphy Verified 01/27/22 10:50 laxis soy Allergy Unknown Verified 09/08/24 08:04 tetracycline Allergy Unknown Verified 09/08/24 08:04 tramadol Allergy Unknown Verified 09/08/24 08:04 triamcinolone [From Kenalog] Allergy Unknown Verified 09/08/24 08:04 varenicline Allergy Unknown Verified 09/08/24 08:04 walnut Allergy ALGY-Anaphy Verified 01/27/22 10:50 laxis warfarin Allergy Unknown Verified 09/08/24 08:04 wheat Allergy Unknown Verified 09/08/24 08:04 PFSH ED 2 PFSH: Medical History Hypothyroidism Psoriatic arthritis CVA (cerebral vascular accident) Surgical History History of colonoscopy (01/29/22) History of hysterectomy Social History Smoking and tobacco/nicotine status: never used tobacco/nicotine Physical Exam 2 Narrative: EXAM NARRATIVE: Patient is awake. She has slowed mentation and moves very slowly. She has dry mucous membranes. She is able to sit up for me with some assistance. She moves her extremities freely. She has no drift in her arms. She has some mild bilateral drift in her legs which are weak. No pitting edema in her legs. Her neck is supple. Heart regular rhythm. Lung sounds are clear. Abdomen was soft nontender with no guarding or rebound. Patient is very difficult to understand. There are a few words that she is says that I can understand but majority are very garbled and no clear meaning however the patient will nod her head and answer questions consistently. Difficult to assess her memory with her difficulty with speaking. Patient CT ab pelvis showed gallbladder with sludge. Patient has no right upper quadrant tenderness on my exam. Patient white blood cell count not significantly elevated. Patient was markedly hyponatremic and sent stent with report. Patient creatinine elevated compared to her baseline. Patient EKG to monitor potation shows sinus rhythm with a rate of [address] segment changes. Patient denies any chest pain or chest discomfort. I discussed with the hospitalist to admit continue patient care. Course 2 Vital Signs: Vital signs: Vital Signs Temperature 97.5 F L 09/08/24 16:37 Pulse Rate 94 09/08/24 16:37 Respiratory Rate 17 09/08/24 16:37 Blood Pressure 127/84 09/08/24 16:37 Pulse Oximetry 94 09/08/24 16:37 Oxygen Delivery Me thod Room Air 09/08/24 16:37 MDM - General Adult Medical Decision Making Patient presents with complaint of hypernatremia. Patient here is slowed mentation dry mucous membranes and I suspect is dehydrated. No focal neurologic deficits on exam suggestive of stroke. She denies any fall or injury. She has no complaints of pain for me. She did reportedly complain of intermittent epigastric pain and consideration for cardiac etiology as she has no abdominal tenderness. CBC CMP and urinalysis EKG and troponin are ordered. She has a history of iodine allergy. Will order CT ab pelvis without contrast with suspected dehydration and her iodine allergy and low pretest probability for significant intra-abdominal process. Patient's urinalysis is pending. Sodium returned markedly elevated and her creatinine is approximately twice what her baseline is. I would 1 L normal saline IV fluid bolus. Plan to consult with hospitalist for consideration for admission to treat dehydration and hypernatremia. not currently in the emergency department to give history. Lab Data 09/08/24 07:03 09/08/24 07:03 Radiology Impressions Abdomen/Pelvis CT 09/08/24 09:12 IMPRESSION: 1. Mild hepatomegaly. 2. Fluid distended gallbladder with suggestion of increased attenuation layering sludge. This can be further evaluated with ultrasound. 3. No hydronephrosis in either kidney. 4. Dense sigmoid constipation. 5. Chronic appearing mild compression of the superior endplates of L1 and L3 with anterior wedging. 6. No other acute findings. Head CT 09/08/24 12:33 IMPRESSION: 1. No CT evidence of acute intracranial pathology. 2. Additional findings, as above. Laboratory Results WBC 11.01 10^3/uL (3.29-11.43) 09/08/24 07:03 RBC 5.12 10^6/uL (3.85-5.65) 09/08/24 07:03 Hgb 14.30 g/dL (11.27-16.99) 09/08/24 07:03 Hct 48.2 % (36-47) H 09/08/24 07:03 MCV 94.1 fl (85-98) 09/08/24 07:03 MCH 27.9 pg (27-33) 09/08/24 07:03 MCHC 29.7 g/dL (30-55) L 09/08/24 07:03 RDW 14.4 % (12.1-15.1) 09/08/24 07:03 Plt Count 146 10^3/cmm (157-399) L 09/08/24 07:03 MPV 14.3 fL (7.4-10.4) H 09/08/24 07:03 Neut % (Auto) 64.6 % 09/08/24 07:03 Lymph % (Auto) 23.9 % 09/08/24 07:03 [place] % (Auto) 8.0 % 09/08/24 07:03 Eos % (Auto) 2.3 % 09/08/24 07:03 Baso % (Auto) 0.8 % 09/08/24 07:03 Neut # (Auto) 7.12 10^3/uL (1.8-7.7) 09/08/24 07:03 Lymph # (Auto) 2.6 10^3/uL (0.8-4.8) 09/08/24 07:03 [place] # (Auto) 0.9 10^3/uL (0.2-0.9) 09/08/24 07:03 Eos # (Auto) 0.3 10^3/uL (0.0-0.8) 09/08/24 07:03 Baso # (Auto) 0.1 10^3/uL (0.0-0.1) 09/08/24 07:03 Nucleated RBC % (auto) 0 % 09/08/24 07:03 Nucleated RBCs # 0.0 /100WBC 09/08/24 07:03 Sodium 159 mmol/L (136-145) H 09/08/24 07:03 Potassium 3.9 mmol/L (3.5-5.1) 09/08/24 07:03 Chloride 120 mmol/L (98-107) H 09/08/24 07:03 Carbon Dioxide 27 mmol/L (22-29) 09/08/24 07:03 Anion Gap 15.9 (5-19) 09/08/24 07:03 BUN 35 mg/dL (8-23) H 09/08/24 07:03 Creatinine 1.1 mg/dL (0.5-0.9) H 09/08/24 07:03 GFR Calculation 49.2 mL/min (90-130) L 09/08/24 07:03 Glucose 113 mg/dL (65-115) 09/08/24 07:03 Calculated Osmolality 337 mOsm/kg (285-295) H 09/08/24 07:03 Calcium 9.5 mg/dL (8.5-10.5) 09/08/24 07:03 Total Bilirubin 0.5 mg/dL (0.15-1.2) 09/08/24 07:03 AST 38 U/L (0-32) H 09/08/24 07:03 ALT 69 U/L (0-33) H 09/08/24 07:03 Alkaline Phosphatase 85 U/L (35-105) 09/08/24 07:03 Creatine Kinase 40 U/L (26-192) 09/08/24 07:03 Troponin T Baseline 11 ng/L (0-10) H 09/08/24 07:03 Troponin T 120 Minute 8.12 ng/L (0-10) 09/08/24 09:24 Delta Troponin T -2.88 ABS# (0-10) L 09/08/24 09:24 Total Protein 7.2 g/dL (6.6-8.7) 09/08/24 07:03 Albumin 4.4 g/dL (3.5-5.2) 09/08/24 07:03 Globulin 2.8 g/dL (1.3-4.6) 09/08/24 07:03 TSH 2.18 uIU/mL (0.27-4.20) 09/08/24 07:03 Urine Color Dark yellow (Yellow) A 09/08/24 09:24 Urine Appearance Clear (CLEAR) 09/08/24 09:24 Urine pH 5.5 (5-7) 09/08/24 09:24 Ur Specific [place] 1.030 (1.005-1.030) 09/08/24 09:24 Urine Protein 1+ (Negative) A 09/08/24 09:24 Urine Glucose (UA) Negative (Normal) 09/08/24 09:24 Urine Ketones Trace (Negative) 09/08/24 09:24 Urine Blood Negative (Negative) 09/08/24 09:24 Urine Nitrate Negative (Negative) 09/08/24 09:24 Urine Bilirubin 1+ (Negative) H 09/08/24 09:24 Urine Urobilinogen 1.0 mg/dL (Negative) 09/08/24 09:24 Ur Leukocyte Esterase Negative (Negative) 09/08/24 09:24 Urine RBC 0-2 /hpf (0-2) 09/08/24 09:24 Urine WBC 0-5 /hpf (0-5) 01/16/25 09:24 Ur Squamous Epith Cells 0-5 /hpf (0-5) 09/08/24 09:24 Amorphous Sediment Not Reportable 09/08/24 09:24 Urine Bacteria None seen /hpf (NONE) 09/08/24 09:24 Hyaline Casts 0-4 /lpf H 09/08/24 09:24 All radiology interpretation(s) finalized by discharge Discharge Plan Discharge Patient Disposition: Placed in Observation Admit Provider: Arnaud Pillai Clinical Impression: Acute hypernatremia, Acute dehydration Coding Level of Care Code ED [employer] for [place]
--- NOTE | 2024-09-08 09:12 | CT_ITS ---
WS: [id number] CT ABDOMEN PELVIS TECHNIQUE: Noncontrast CT of the abdomen and pelvis with coronal and sagittal reformatted images. CLINICAL INFORMATION: abd pain COMPARISON: None. DLP: 447.[address] scans at [facility] use at least one of these dose optimization techniques: automated e xposure control; mA and/or kV adjustment per patient size (includes targeted exams where dose is matc hed to clinical indication); or iterative reconstruction. FINDINGS: Slight bibasilar atelectasis. Mild hepatomegaly. Otherwise normal noncontrast liver. Normal noncontrast spleen. Normal GE junction. Fatty atrophy of the pancreas. Splenic artery calcifications . Adrenal glands are normal. No hydronephrosis in either kidney. Normal caliber abdominal aorta. Aort ic calcification. Dense sigmoid constipation. No evidence of small or large bowel obstruction. No free fluid in the abd omen or pelvis. Disc space narrowing worse at L2-L5 with vacuum disc phenomenon. Mild lumbar curve. N o other acute findings. Mild chronic appearing anterior wedging at L1 and L3. CT/CT abdomen pelvis wo con [id number] IMPRESSION: 1. Mild hepatomegaly. 2. Fluid distended gallbladder with suggestion of increased attenuation layeri ng sludge. This can be further evaluated with ultrasound. 3. No hydronephrosis in either kidney. 4. Dense sigmoid constipation. 5. Chronic appearing mild compression of the superior endplates of L1 and L3 w ith anterior wedging. 6. No other acute findings.
--- NOTE | 2024-09-08 09:35 | PC.NURSE ---
per Elvia at skilled nursing pt labwork was done as a routine order and came back was Sodium on 161.
[2024-09-08 09:47] LABS: Bilirubin Urine 1+ (Negative); Blood Urine Negative (Negative); Glucose Urine UA Negative (Normal); Ketones Urine Trace (Negative); Leukocyte Esterase Urine Negative (Negative); Nitrate Urine Negative (Negative); Protein Urine 1+ (Negative); Urine Appearance Clear (CLEAR); Urine Color Dark Yellow (Yellow); pH Urine 5.5 (5-7)
[2024-09-08 09:47] LABS: Troponin(5th) Baseline 11 ng/L (0-10)
[2024-09-08 09:53] LABS: Add Urine Microscopic? YES; Bacteria Urine None Seen /hpf; Hyaline Casts Urine 0-4 /lpf; RBC Urine 0-2 /hpf (0-2); Squamous Epithelial Cell Urine 0-5 /hpf (0-5); Troponin 5 2HR 8.12 ng/L (0-10); WBC Urine 0-5 /hpf (0-5)
[2024-09-08 09:58] LABS: Troponin 5 2HR Delta -2.88 ABS# (0-10)
--- NOTE | 2024-09-08 11:14 | ECG_ITS ---
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: : 1955 Requested By: Benjy Nam Order Number: [id number] Reading MD: MARGARITA BUCKNER Measurements Intervals [place] Rate: 89 P: -19 TX: 147 QRS: -64 QRSD: 109 T: 79 QT: 401 QTc: 489 Interpretive Statements SINUS RHYTHM LEFT AXIS DEVIATION [QRS AXIS < -30] INCOMPLETE RIGHT BUNDLE BRANCH BLOCK [90+ ms QRS DURATION, TERMINAL R IN V1/V2, 40+ ms S IN I/aVL/V4/V5/V6] ANTEROSEPTAL MYOCARDIAL INFARCTION , OF INDETERMINATE AGE [40+ ms Q WAVE IN V1-V4] Compared to ECG 09/08/2024 07:11:47 No significant changes Electronically Signed On 09-09-2024 23:33:35 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
--- NOTE | 2024-09-08 12:22 | PC.NURSE ---
This nurse attempted to call report at 1220. The phone rang for two minutes with no answer.
--- NOTE | 2024-09-08 12:33 | CTR_ITS ---
PROCEDURE INFORMATION: Exam: CT Head Without Contrast Exam date and time: 09/08/2024 1:56 PM Age: 69 years old Clinical indication: Altered mental status/memory loss; Confusion or disorientation; Additional info: Aphasia, AMS TECHNIQUE: Imaging protocol: Computed tomography of the head without contrast. Axial, coronal and sagittal reformatted images were created and reviewed. Radiation optimization: All CT scans at this facility use at least one of these dose optimization techniques: automated exposure control; mA and/or kV adjustment per patient size (includes targeted exams where dose is matched to clinical indication); or iterative reconstruction. COMPARISON: CT angio headneck* [id number] 08/27/2024 8:39 AM RADIATION DOSE METRICS: Total DLP (mGy-cm): 1108.49 FINDINGS: Brain: Patchy areas of hypoattenuation in the periventricular and subcortical white matter, consistent with chronic small vessel ischemic disease. Focal, well-circumscribed hypodensities in the basal ganglia, thalami and cerebellum, consistent with chronic lacunar infarcts. No CT evidence of acute intracranial hemorrhage or acute territorial infarction. No significant mass effect or midline shift. Basal cisterns patent. Cerebral ventricles: Prominence of the cortical sulci, cisterns and ventricular system, consistent with cerebral and cerebellar volume loss. Paranasal sinuses: Unremarkable. No fluid levels. Mastoid air cells: Grossly unremarkable. Bones: Unremarkable. No acute fracture. Soft tissues: Grossly unremarkable. Vasculature: Calcific atherosclerotic disease in the cavernous internal carotid arteries, as well as the vertebro-basilar system. CT/CT head wo con* [id number]: 1[address] No CT evidence of acute intracranial pathology. 2. Additional findings, as above.
--- NOTE | 2024-09-08 12:33 | P.HP_ITS ---
Providers/Chief Complaint 2 Admitting Physician: Arnaud Pillai Primary Care Provider: Leona Wilder NP Chief Complaint: high sodium History of Present Illness 69-year-old lady, snf resident, her reports she has had history of 14 strokes in the past, with psoriatic arthritis, hypothyroidism, recently has had progressive difficulty in communicating over the last several weeks and has not been eating well. Over the preceding week also was diagnosed with urinary tract infection and received treatment. Has been having some complaints of abdominal discomfort and feeling of acid reported by her . Review of Systems 2 General: Reports: ROS unobtainable due to medical condition and ROS unobtainable due to mental status Medications/Allergies Home Medications Medication Instructions Recorded Confirmed Last Taken Type aspirin 81 mg tablet,delayed 81 mg PO DAILY #30 tabs 09/17/21 09/08/24 09/07/24 Rx release clopidogrel 75 mg tablet 75 mg PO DAILY 11/09/21 09/08/24 09/07/24 History rosuvastatin 10 mg tablet 10 mg PO DAILY 11/09/21 09/08/24 09/07/24 History acetaminophen 325 mg tablet 325 mg PO QID PRN Pain 08/27/24 09/08/24 09/06/24 History (Tylenol) aluminum-mag hydroxide-simethicone 30 ml PO Q4H PRN Indigestion 08/27/24 09/08/24 09/01/24 History 400 mg-400 mg-40 mg/5 mL oral susp (Mylanta Maximum Strength) amoxicillin 875 mg-potassium 1 tab PO BID 08/27/24 09/08/24 09/07/24 History clavulanate 125 mg tablet bisacodyl 5 mg tablet,delayed 10 mg PO DAILY PRN constipation 08/27/24 09/08/24 09/07/24 History release cholecalciferol (vitamin D3) 10 10 mcg PO DAILY 08/27/24 09/08/24 09/07/24 History mcg (400 unit) capsule cyclobenzaprine 5 mg tablet 5 mg PO TID PRN pain/spasms 08/27/24 09/08/24 08/26/24 History diclofenac sodium 1 % topical gel 2 g topical QID PRN Pain 08/27/24 09/08/24 Unknown History duloxetine 60 mg capsule,delayed 60 mg PO DAILY 08/27/24 09/08/24 09/07/24 History release fluticasone propionate 110 2 puff inhalation BID PRN sob 08/27/24 09/08/24 Unknown History mcg/actuation HFA aerosol inhaler levothyroxine 175 mcg tablet See Rx Instructions .Route .COMPLEX 08/27/24 09/08/24 09/07/24 History (Synthroid) meclizine 12.5 mg tablet 12.5 mg PO Q8H PRN Dizziness Or 08/27/24 09/08/24 Unknown History Vertigo memantine 10 mg tablet 10 mg PO BID 08/27/24 09/08/24 09/07/24 History metoclopramide HCl 5 mg tablet 5 mg PO DAILY 08/27/24 09/08/24 09/07/24 History (Reglan) fknecuytnjoy-uadnqctf-wqhng acid 1 cap PO DAILY 08/27/24 09/08/24 09/07/24 History 400 mcg-vitamin K 80 mcg capsule (Multi For Her 50 Plus) rivastigmine tartrate 3 mg capsule 3 mg PO DAILY 08/27/24 09/08/24 09/07/24 History Allergies Allergy/AdvReac Type Severity Reaction Status Date / Time almond Allergy Unknown Verified 09/08/24 08:04 chocolate flavor Allergy ALGY-Anaphy Verified 01/29/22 07:46 laxis coconut Allergy Unknown Verified 01/29/22 07:46 codeine Allergy Unknown Verified 09/08/24 08:04 gluten Allergy Unknown Verified 09/08/24 08:04 iodine Allergy ALGY-Bliste Verified 01/27/22 10:50 r milk Allergy ADR-Gastrointestinal Verified 01/27/22 10:50 Upset ondansetron [From Zofran] Allergy Unknown Verified 09/08/24 08:04 petrolatum,white Allergy Unknown Verified 09/08/24 08:04 [From Petroleum Jelly] povidone-iodine Allergy Unknown Verified 09/08/24 08:04 [From Betadine] rye grass Allergy Unknown Verified 09/08/24 08:04 shellfish derived Allergy ALGY-Anaphy Verified 01/27/22 10:50 laxis soy Allergy Unknown Verified 09/08/24 08:04 tetracycline Allergy Unknown Verified 09/08/24 08:04 tramadol Allergy Unknown Verified 09/08/24 08:04 triamcinolone [From Kenalog] Allergy Unknown Verified 09/08/24 08:04 varenicline Allergy Unknown Verified 09/08/24 08:04 walnut Allergy ALGY-Anaphy Verified 01/27/22 10:50 laxis warfarin Allergy Unknown Verified 09/08/24 08:04 wheat Allergy Unknown Verified 09/08/24 08:04 PFSH Acute 2 PFSH: Medical History Hypothyroidism Psoriatic arthritis CVA (cerebral vascular accident) Surgical History History of colonoscopy (01/29/22) History of hysterectomy Social History Smoking and tobacco/nicotine status: never used tobacco/nicotine Vitals/I&O/Wt Last Vital Signs Temp 97.7 F 09/08/24 07:25 Pulse 90 09/08/24 11:21 Resp 17 09/08/24 07:25 BP 117/92 09/08/24 11:21 Pulse Ox 97 09/08/24 11:21 O2 Del Method Room Air 09/08/24 07:25 Physical Exam 2 Const: COMMON NORMALS: alert GENERAL APPEARANCE: cooperative O RIENTATION/CONSCIOUSNESS: Yes awake HENMT: COMMON NORMALS: oropharynx normal OTHER: Dry mouth. Neck/C-Spine: COMMON NORMALS: no JVD Resp: COMMON NORMALS: normal respiratory effort and clear to auscultation bilaterally AUSCULTATION: clear to auscultation bilaterally Cardio: COMMON NORMALS: no JVD, regular rhythm, S1 normal heart sound present, S2 normal heart sound present and No murmurs present (Cardio) RHYTHM: regular rhythm HEART SOUNDS: S1 normal heart sound present and S2 normal heart sound present GI: COMMON NORMALS: Normal to inspection, nondistended, normoactive bowel sounds present, Soft to palpation and non-tender PALPATION: Yes Soft to palpation Extremity: COMMON NORMALS: no joint enlargement and no pedal edema Neuro: COMMON NORMALS: moves all extremities SENSORIUM/ORIENTATION: Yes alert OTHER: She is having moderate to severe dysarthria. She is generally weak. She is moving all extremities, but appears to have some confusion. Dialysis appears to be able to track both myself and her at either side of the bed without obvious visual field deficits. Does not follow directions. Unable to participate well in exam. Skin: COMMON NORMALS: no rashes or lesions noted GENERAL SKIN EXAM: no rashes or lesions noted Data 09/08/24 07:03 09/08/24 07:03 A&P Assessment and plan (1) Acute hypernatremia: Acute severe hyponatremia, with dehydration sodium up to 159 reviewed. Chloride reviewed, up to 120. BUN 35, creatinine 1.1. With mild transaminitis 38, 69. T. bili and alk phos normal. Has had poor oral intake in the last several weeks. Is been complaining of some abdominal pain, CT abdomen pelvis obtained in ER reviewed, mild hepatomegaly, fluid distended gallbladder with suggestion of increased attenuation layering sludge. Chronic appearing mild compression of superior endplates of L1 and L3 with anterior wedging. No other acute process but is found to have constipation. Reviewed vitals, CMP, calculated osmolality 337. Requested TSH. Reviewed UA. Reviewed ER provider note, discussed with ER provider. Will give IV hydration as discussed with her with D5 half-normal IV fluid infusion. Monitor for risk of fluid overload with IV fluid. (2) Acute encephalopathy: Acute metabolic encephalopathy with severe hyponatremia, dehydration. Recently treated for UTI. Reviewed micro studies, pansensitive E. coli. Received Augmentin. Acute severe hyponatremia, sodium up to 159. With acute dehydration. Has had poor oral intake over the last several weeks. Seems this was accompanying more difficulties with communication and functioning. She has had history of 14 strokes in the past per her . History obtained from the as she is unable to provide history, too weak, with dry mucous membranes, dysarthria. Recently had workup here on 08/[address], CTA head and neck with concern for possible CVA. Studies reviewed, head CT unremarkable, CTA without large vessel stenosis or occlusion. Additional head CT is ordered by ER physician per discussion. Reviewed CBC, CMP, troponin, requested TSH, magnesium. Reviewed UA, CT abdomen pelvis. Aspiration precautions, will request speech therapy assessment. Dysphagia diet for now. Discussed with her concerned that she may be progressing to cognitive dysfunction following multiple prior CVA. May be forgetting to drink water, not feeling thirsty. He does try to remind her to drink water whenever he is able to. (3) Acute dehydration: IV hydration as above. Monitor for risk of fluid overload. Reassess sodium with risk of hypo or further hypernatremia. Complicated by constipation. (4) Transaminitis: Mild transaminase risk T. bili, alk phos normal. Some mild liver enlargement, reassess liver parameters. Rehydration as above. Avoid NSAIDs. Hold statin. Will check CK. Plan Hypothyroidism: Continue levothyroxine Psoriatic arthritis Multiple prior: Continue aspirin, Plavix. Attestations 2 Medical Necessity Statement*: Place in observation for additional assessment management of severe hyponatremia, dehydration, acute encephalopathy. Diagnoses Acute hypernatremia E87.0 Acute encephalopathy G93.40 Acute dehydration E86.0 Transaminitis R74.01
[2024-09-08] MEDS: dextrose 5%-sod chloride 0.45% 1,000 ML 75 ML IV (13:31)
[2024-09-08 13:34] LABS: Thyroid Stimulating Hormone 2.18 uIU/mL (0.27-4.20)
[2024-09-08 14:31] LABS: Creatine Phosphokinase 40 U/L (26-192)
[2024-09-08 14:50] LABS: Troponin 5 6HR 10.75 ng/L (0-10)
[2024-09-08 14:52] LABS: Troponin 5 6HR Delta -0.25 ng/L (0-12)
--- NOTE | 2024-09-08 17:39 | ECG_ITS ---
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1955 Requested By: Benjy Nam Order Number: [id number] Reading MD: MARGARITA BUCKNER Measurements Intervals [place] Rate: 90 P: -30 IN: 149 QRS: -58 QRSD: 110 T: 58 QT: 393 QTc: 483 Interpretive Statements SINUS RHYTHM LEFT AXIS DEVIATION [QRS AXIS < -30] MODERATE VOLTAGE CRITERIA FOR LVH, CONSIDER NORMAL VARIANT [MEETS CRITERIA IN ONE OF: R(aVL), S(V1), R(V5), R(V5/V6)+S(V1)] POSSIBLE ANTEROSEPTAL MYOCARDIAL INFARCTION , OF INDETERMINATE AGE [30 ms Q WAVE IN V1-V4] Compared to ECG 09/08/2024 11:23:28 Incomplete right bundle-branch block no longer present Myocardial infarct finding still present Electronically Signed On 09-09-2024 23:33:02 HOUSE FURNISHINGS SUPERVISOR by MARGARITA BUCKNER [id number]
[2024-09-08] MEDS: memantine 5 mg tablet 10 MG PO (17:50)
[2024-09-08] MEDS: pantoprazole 40 mg SDV IVP (17:52)
[2024-09-08] MEDS: enoxaparin 40 mg/0.4 mL Syringe SUBCUT (17:52)
[2024-09-08] MEDS: polyethylene glycol 3350 Pkt 17 gm PO (17:52)
[2024-09-09] VITALS (7 sets, daily range): BP systolic 116–138; BP diastolic 56–85; PULSE 71–88; RESP 14–20; TEMP 36.5–37.2; O2SAT 94–97
[2024-09-09] MEDS: dextrose 5%-sod chloride 0.45% 1,000 ML 75 ML IV (02:50)
[2024-09-09 05:21] LABS: Basophils # 0.1 10^3/uL (0.0-0.1); Basophils % 0.6 %; Eosinophils # 0.2 10^3/uL (0.0-0.8); Eosinophils % 2.7 %; Hematocrit 45.7 % (36-47); Lymphocytes # 2.6 10^3/uL (0.8-4.8); Lymphocytes % 30.8 %; Mean Corpuscular Hemoglobin 28.6 pg (27-33); Mean Corpuscular Volume 95.4 fl (85-98); Monocytes # 0.6 10^3/uL (0.2-0.9); Monocytes % 7.4 %; Neutrophils # 4.96 10^3/uL (1.8-7.7); Neutrophils % 58.1 %; Nucleated Red Blood Cells % 0 %; Platelet Count 110 10^3/cmm (157-399); Red Blood Count 4.79 10^6/uL (3.85-5.65); Red Cell Distribution Width 14.3 % (12.1-15.1); White Blood Count 8.53 10^3/uL (3.29-11.43)
[2024-09-09 05:59] LABS: Alanine Aminotransferase 49 U/L (0-33); Alkaline Phosphatase 74 U/L (35-105); Anion Gap 12.8 (5-19); Aspartate Amino Transferase 25 U/L (0-32); Blood Urea Nitrogen 25 mg/dL (8-23); Calcium 9.1 mg/dL (8.5-10.5); Carbon Dioxide 29 mmol/L (22-29); Chloride 121 mmol/L (98-107); Creatinine Clr Calc Pharmacy 63.6646; Globulin 2.5 g/dL (1.3-4.6); Glomerular Filtration Rate 71.1 mL/min (90-130); Glucose 118 mg/dL (65-115); Magnesium 2.7 mg/dL (1.7-2.3); Osmolality Calculated 333 mOsm/kg (285-295); Potassium 3.8 mmol/L (3.5-5.1); Sodium 159 mmol/L (136-145); Total Bilirubin 0.5 mg/dL (0.15-1.2); Total Protein 6.5 g/dL (6.6-8.7)
--- NOTE | 2024-09-09 08:18 | P.PN_ITS ---
Subjective 2 Subjective: She appears slightly more alert, interactive. She states she does not feel significantly stronger. She will try to eat a little bit for breakfast. Vitals/I&O/Wt Last Vital Signs Temp 98.0 F 09/09/24 07:56 Pulse 71 09/09/24 07:56 Resp 16 09/09/24 07:56 BP 137/77 09/09/24 07:56 Pulse Ox 97 09/09/24 07:56 O2 Del Method Room Air 09/09/24 07:56 09/08/24 09/09/24 09/09/24 22:59 06:59 14:59 Intake Total 50 / 50 998.75 / 1048.75 Balance 50 / 50 998.75 / 1048.75 Weight last 48 hrs Weight 63.248 kg Weight 62.959 kg Physical Exam 2 Const: COMMON NORMALS: alert GENERAL APPEARANCE: cooperative O RIENTATION/CONSCIOUSNESS: Yes awake HENMT: COMMON NORMALS: oropharynx normal OTHER: Mucosa less dry than yesterday but still with dryness. Neck/C-Spine: COMMON NORMALS: no JVD Resp: COMMON NORMALS: normal respiratory effort and clear to auscultation bilaterally AUSCULTATION: clear to auscultation bilaterally Cardio: COMMON NORMALS: no JVD, regular rhythm, S1 normal heart sound present, S2 normal heart sound present and No murmurs present (Cardio) RHYTHM: regular rhythm HEART SOUNDS: S1 normal heart sound present and S2 normal heart sound present GI: COMMON NORMALS: Normal to inspection, nondistended, normoactive bowel sounds present, Soft to palpation and non-tender PALPATION: Yes Soft to palpation Extremity: COMMON NORMALS: no joint enlargement and no pedal edema Neuro: COMMON NORMALS: moves all extremities SENSORIUM/ORIENTATION: Yes alert OTHER: She is having moderate to severe dysarthria. She is generally weak. She is moving all extremities, mild to moderate confusion/disorientation. Skin: COMMON NORMALS: no rashes or lesions noted GENERAL SKIN EXAM: no rashes or lesions noted Data 09/09/24 04:41 09/09/24 04:41 A&P Assessment and plan (1) Acute hypernatremia: Reviewed sodium, chloride, BUN, creatinine. Sodium still with elevation 159, without improvement. Hyperchloremia worse today, chloride up to 121. BUN 25, creatinine 0.8. Reviewed bicarb, 29. Continues with dehydration. However, with hyperchloremia. Will switch IV fluids to D5, run slowly at 30 mL/h. Monitor for risk of fluid overload. Reassess chemistry this afternoon. Encourage oral intake. Discussed with speech therapist. Advance diet to minced and moist, moderately thick liquids. Continue aspiration precautions. Mild transaminitis 38, 69. T. bili and alk phos normal. Has had poor oral intake in the last several weeks. Is been complaining of some abdominal pain, CT abdomen pelvis obtained in ER reviewed, mild hepatomegaly, fluid distended gallbladder with suggestion of increased attenuation layering sludge. Chronic appearing mild compression of superior endplates of L1 and L3 with anterior wedging. No other acute process but is found to have constipation. Discussed with nursing, DIscussed with rehabilitation case coordinator. Being further admitted for now for management of unimproved severe hypernatremia, discharge deferred for now likely until after the weekend. (2) Acute encephalopathy: With mild improvement, she is more alert, more interactive, but still moderately confused/disoriented. Does respond little better to questions. Still with dehydration, still with severe hypernatremia. Adjust fluids as above. She will try to eat a little bit, appreciate speech therapy assessment. Continue to reorient. Continue management of acute metabolic encephalopathy. Reviewed UA, without suggestion of recurrent UTI. Reviewed head CT, no evidence of acute intracranial pathology. Continue aspirin, Plavix with multiple prior strokes. Statin on hold for now with dehydration and generalized weakness. Discussed with her concerned that she may be progressing to cognitive dysfunction following multiple prior CVA. May be forgetting to drink water, not feeling thirsty. He does try to remind her to drink water whenever he is able to. (3) Acute dehydration: IV hydration as above. Adjust IV fluid to D5. Decrease rate. Monitor for risk of fluid overload. Monitor for risk of fluid overload. Reassess sodium with risk of hypo or further hypernatremia. Complicated by constipation with overflow incontinence. Continue bowel regimen. (4) Transaminitis: Mild transaminitis with improvement. Repeat chemistry. Mild transaminase risk T. bili, alk phos normal. Some mild liver enlargement, reassess liver parameters. Rehydration as above. Avoid NSAIDs. Hold statin. Reviewed CK. Plan Constipation: With overflow incontinence. Twice daily MiraLAX. Oral intake as tolerating. Hypothyroidism: Continue levothyroxine Psoriatic arthritis Multiple prior CVA: Continue aspirin, Plavix. Statin on hold for now with dehydration and generalized weakness. Attestations 2 Medical Necessity Statement*: Admission over 2 midnights is necessary for assessment management of severe hypernatremia with acute metabolic encephalopathy, hyperchloremia, dehydration in a lady with multiple prior CVA. and High MDM includes amount and/or complexity of data reviewed/ordered [ resulted lab(s)/test(s), ordered lab(s)/test(s) and other healthcare professional discussion] and described risk of complication, morbidity or mortality of management as documented Diagnoses Acute hypernatremia E87.0 Acute encephalopathy G93.40 Acute dehydration E86.0 Transaminitis R74.01
[2024-09-09] MEDS: duloxetine 60 mg Capsule PO (09:31)
[2024-09-09] MEDS: memantine 5 mg tablet 10 MG PO ×2 (09:31→17:08)
[2024-09-09] MEDS: dextrose 5% 1,000 ML 30 ML IV (09:31)
[2024-09-09] MEDS: clopidogrel 75 mg Tablet PO (09:32)
[2024-09-09] MEDS: levothyroxine 175 mcg Tablet PO (09:32)
[2024-09-09] MEDS: aspirin 81 mg EC Tablet PO (09:32)
[2024-09-09] MEDS: polyethylene glycol 3350 Pkt 17 gm PO ×2 (09:32→17:08)
[2024-09-09] MEDS: atorvastatin 40 mg Tablet PO (09:32)
[2024-09-09] MEDS: metoclopramide 10 mg Tablet 5 MG PO (09:32)
--- NOTE | 2024-09-09 11:00 | PC.NURSE ---
Pt requiring medications to be crushed in applesauce. Aspirin changed to chewable/crushable tablet for this reason.
[2024-09-09 12:26] LABS: Anion Gap 12.6 (5-19); Blood Urea Nitrogen 20 mg/dL (8-23); Calcium 9.1 mg/dL (8.5-10.5); Carbon Dioxide 27 mmol/L (22-29); Chloride 119 mmol/L (98-107); Creatinine Clr Calc Pharmacy 63.7858; Glomerular Filtration Rate 71.1 mL/min (90-130); Glucose 123 mg/dL (65-115); Osmolality Calculated 324 mOsm/kg (285-295); Potassium 3.6 mmol/L (3.5-5.1); Sodium 155 mmol/L (136-145)
[2024-09-09] MEDS: pantoprazole 40 mg SDV IVP (17:08)
[2024-09-09] MEDS: enoxaparin 40 mg/0.4 mL Syringe SUBCUT (17:08)
[2024-09-10 03:46] LABS: Basophils # 0.1 10^3/uL (0.0-0.1); Basophils % 0.5 %; Eosinophils # 0.2 10^3/uL (0.0-0.8); Eosinophils % 2.3 %; Hematocrit 41.6 % (36-47); Lymphocytes # 2.5 10^3/uL (0.8-4.8); Mean Corpuscular HGB Conc 29.8 g/dL (30-55); Mean Corpuscular Hemoglobin 28.6 pg (27-33); Mean Corpuscular Volume 95.9 fl (85-98); Monocytes # 0.6 10^3/uL (0.2-0.9); Monocytes % 6.6 %; Neutrophils # 5.93 10^3/uL (1.8-7.7); Neutrophils % 63.2 %; Nucleated Red Blood Cells % 0 %; Platelet Count 112 10^3/cmm (157-399); Red Blood Count 4.34 10^6/uL (3.85-5.65); Red Cell Distribution Width 13.8 % (12.1-15.1)
[2024-09-10 04:00] VITALS: BP 137/76; PULSE 76; RESP 16; TEMP 36.6; O2SAT 96
[2024-09-10 04:03] LABS: Alanine Aminotransferase 38 U/L (0-33); Albumin Level 3.5 g/dL (3.5-5.2); Alkaline Phosphatase 63 U/L (35-105); Blood Urea Nitrogen 19 mg/dL (8-23); Calcium 8.6 mg/dL (8.5-10.5); Carbon Dioxide 26 mmol/L (22-29); Chloride 119 mmol/L (98-107); Creatinine Clr Calc Pharmacy 63.7858; Globulin 2.5 g/dL (1.3-4.6); Glomerular Filtration Rate 99.1 mL/min (90-130); Glucose 103 mg/dL (65-115); Osmolality Calculated 321 mOsm/kg (285-295); Sodium 154 mmol/L (136-145); Total Bilirubin 0.5 mg/dL (0.15-1.2)
[2024-09-10 04:11] LABS: Anion Gap 12.9 (5-19); Aspartate Amino Transferase 28 U/L (0-32); Potassium 3.9 mmol/L (3.5-5.1)
[2024-09-10 04:26] LABS: Slide Review Slide Review Perform
[2024-09-10] MEDS: aspirin 81 mg Chew Tablet PO (07:52)
[2024-09-10] MEDS: polyethylene glycol 3350 Pkt 17 gm PO ×2 (07:53→17:26)
[2024-09-10] MEDS: duloxetine 60 mg Capsule PO (07:53)
[2024-09-10] MEDS: memantine 5 mg tablet 10 MG PO ×2 (07:53→17:26)
[2024-09-10] MEDS: clopidogrel 75 mg Tablet PO (07:53)
[2024-09-10] MEDS: atorvastatin 40 mg Tablet PO (07:53)
[2024-09-10] MEDS: metoclopramide 10 mg Tablet 5 MG PO (07:53)
[2024-09-10 08:00] VITALS: BP 144/82; PULSE 76; RESP 15; TEMP 36.4; O2SAT 93
[2024-09-10] MEDS: levothyroxine 175 mcg Tablet PO (08:48)
[2024-09-10] MEDS: lanolin oint 7 gm 1 APPLIC TOPICAL (08:54)
--- NOTE | 2024-09-10 10:58 | PC.CHAP ---
Pastoral Care Encounter/Spiritual Assessment Type of Contact [] Declined oxygraph operator visit [] Patient/Family/Request visit [] Outpatient visit [] Follow-up visit [] Physician referral [] Code/Alert [] Routine visit [] Staff referral [] Actively dying [] Patient sleeping [] Family support [] [] Out of room [] Palliative care [] [] Receiving care in room [] Pre-surgical visit [] Trauma [] Long length of stay [] ICU visit [x] Other: Staff Relational/Emotional Strength [] Patient feels connected with others/family/visitors/staff [] Distress [] Loneliness/isolation [] Abandonment Spirituality of Patient [] Person of Cynthia [] Attends Buddhism of their Cynthia [] Believes in Prayer [] Reads Bible or Restorationist materials [] There are Spiritual issues to be addressed Locker Attendant Interventions [] Prayer [] Active listening [] Non-anxious presence [] Spiritual/emotional support [] Crisis/trauma care [] Spiritual counseling [] Bereavement support [] Provided bereavement packet [] Provided Bible/devotional materials [] Provided toy/stuffed animal, coloring book to patient or family member [] Provided Communion [] Anointing/[place] [] Salvation [] Completed spiritual assessment [] Other: Impact on Illness or Injury [] Angry [] Fearful [] Anxious [] Often cries [] Exhaustion [] Unable to work [] Unable to attend mosque [] Unable to walk/stand [] Unable to read [] Unable to drive [] Unable to eat/drink [] Unable to sleep [] Unable to be with family [] Patient intubated [] Other: Summary Time spent with patient
[2024-09-10 12:00] VITALS: BP 132/81; PULSE 80; RESP 16; TEMP 36.8; O2SAT 94
--- NOTE | 2024-09-10 15:20 | P.PN_ITS ---
Subjective 2 Subjective: Patient was seen this morning she is alert to person, not to place, not to time she can follow some commands, has no complaints - Vitals/I&O/Wt Last Vital Signs Temp 98.3 F 09/10/24 12:00 Pulse 80 09/10/24 12:00 Resp 16 09/10/24 12:00 BP 132/81 09/10/24 12:00 Pulse Ox 94 09/10/24 12:00 O2 Del Method Room Air 09/10/24 12:00 Weight last 48 hrs Weight 65.363 kg Weight 63.248 kg Physical Exam 2 Const: COMMON NORMALS: no acute distress ORIENTATION/CONSCIOUSNESS: Yes awake, Yes oriented to person and Yes confused; not oriented to place and not oriented to time Neck/C-Spine: COMMON NORMALS: no JVD Resp: COMMON NORMALS: normal respiratory effort, No retractions, No use of accessory muscles and clear to auscultation bilaterally AUSCULTATION: clear to auscultation bilaterally Cardio: COMMON NORMALS: no JVD, regular rate, regular rhythm, S1 normal heart sound present and S2 normal heart sound present RATE: regular rate RHYTHM: regular rhythm HEART SOUNDS: S1 normal heart sound present and S2 normal heart sound present GI: COMMON NORMALS: Normal to inspection, nondistended, normoactive bowel sounds present and non-tender Extremity: COMMON NORMALS: no pedal edema Neuro: SENSORIUM/ORIENTATION: Yes oriented to person, No oriented to place and No oriented to time Data 09/10/24 02:38 09/10/24 02:38 A&P Assessment and plan (1) Acute hypernatremia: - Continue IV hydration -Monitor serum sodium (2) Acute encephalopathy: - Monitor closely -IV fluids for hypernatremia -Head CT no acute findings -CTA head and neck 08/27/2024, no acute findings -She had presented to the ER 08/27/2024 as a stroke alert, not a tPA candidate, -Will consider MRI of the brain 09/24/2021 MR/MR head wo con* [id number] IMPRESSION: 1. Acute infarct involving the posterior RIGHT whyte radiata. 2. Indeterminate but possible additional very small acute lacunar infarct in the LEFT thalamus. 3. Severe chronic white matter ischemic disease. There is also involvement of the corpus callosum which can be seen with demyelination also. Suspect these changes all related to advanced chronic microvascular ischemic disease with progression since 12/23/2018. 4. No hemorrhage -I spoke to alf, [facility], nursing staff advised me that before August 27, Anna (3) Acute dehydration: (4) Transaminitis: - Monitor (5) CVA (cerebral vascular accident): Plan Constipation: MiraLAX Hypothyroidism: Continue levothyroxine Psoriatic arthritis, hold home medications Multiple prior CVA: Continue aspirin, Plavix. Attestations 2 Medical Necessity Statement*: Patient requires hospitalization for acute encephalopathy, concerns for acute CVA, hyponatremia Diagnoses Acute hypernatremia E87.0 Acute encephalopathy G93.40 Acute dehydration E86.0 Transaminitis R74.01 CVA (cerebral vascular accident) I63.9
[2024-09-10] MEDS: sodium chloride 0.9% 1,000 ML 50 ML IV (15:34)
--- NOTE | 2024-09-10 15:34 | MRR_ITS ---
PROCEDURE INFORMATION: Exam: MR Head Without Contrast Exam date and time: 09/10/2024 4:21 PM Age: 69 years old Clinical indication: Altered mental status/memory loss and speech disturbance; Confusion or disorientation; Dysphasia; Additional info: AMS TECHNIQUE: Imaging protocol: Magnetic resonance imaging of the head without contrast. COMPARISON: CT head wo con* [id number] 09/08/2024 1:56 PM FINDINGS: Brain: Acute infarct in the periventricular/deep white matter tracts of the left frontal lobe. Multiple foci of susceptibility artifact scattered within both the supratentorial and infratentorial structures suggestive of old areas of microhemorrhage. Advanced diffuse cerebral atrophy and confluent FLAIR T2 hyperintense signal abnormality within the periventricular and deep white matter tracts consistent with chronic small vessel ischemic disease. Cerebral ventricles: Normal. No ventriculomegaly. Bones: Unremarkable. Paranasal sinuses: Normal as visualized. No acute sinusitis. Mastoid air cells: Normal as visualized. No mastoid effusion. Orbital cavities: Unremarkable. Soft tissues: Unremarkable. MR/MR head wo con* [id number] IMPRESSION: 1. Acute infarct in the periventricular/deep white matter tracts of the left frontal lobe. 2. Findings suggestive of hypertensive microangiopathy or amyloid angiopathy. 3. Advanced diffuse cerebral atrophy and sequela of chronic small vessel ischemic disease.
--- NOTE | 2024-09-10 15:51 | ECG_ITS ---
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
[2024-09-10 16:06] LABS: Anion Gap 12.7 (5-19); Blood Urea Nitrogen 18 mg/dL (8-23); Calcium 8.8 mg/dL (8.5-10.5); Carbon Dioxide 26 mmol/L (22-29); Chloride 114 mmol/L (98-107); Creatinine Clr Calc Pharmacy 64.6721; Glomerular Filtration Rate 99.1 mL/min (90-130); Glucose 115 mg/dL (65-115); Osmolality Calculated 311 mOsm/kg (285-295); Potassium 3.7 mmol/L (3.5-5.1); Sodium 149 mmol/L (136-145)
[2024-09-10 16:07] LABS: Ammonia 34 umol/L (11-51)
[2024-09-10 16:19] LABS: Troponin(5th) Baseline 10 ng/L (0-10)
--- NOTE | 2024-09-10 17:07 | ECG_ITS ---
[facility] Test Date: 2024-09-10 Pat Name: Dalila Gamez Department: Room: 258 Gender: Female Business Excellence Manager: : 1955 Requested By: Kody Perales Order Number: [id number] Reading MD: MARGARITA BUCKNER Measurements Intervals [place] Rate: 72 P: 27 AK: 170 QRS: -56 QRSD: 98 T: -11 QT: 425 QTc: 465 Interpretive Statements SINUS RHYTHM LEFT AXIS DEVIATION [QRS AXIS < -30] MINIMAL VOLTAGE CRITERIA FOR LVH, CONSIDER NORMAL VARIANT [MEETS CRITERIA IN ONE OF: R(aVL), S(V1), R(V5), R(V5/V6)+S(V1)] ANTEROSEPTAL MYOCARDIAL INFARCTION , OF INDETERMINATE AGE [40+ ms Q WAVE IN V1-V4] Compared to ECG 09/10/2024 15:51:59 No significant changes Electronically Signed On 09-12-2024 23:21:29 IT DESKTOP SUPPORT SPECIALIST by MARGARITA BUCKNER [id number]
[2024-09-10] MEDS: pantoprazole 40 mg SDV IVP (17:25)
[2024-09-10] MEDS: enoxaparin 40 mg/0.4 mL Syringe SUBCUT (17:25)
[2024-09-10 17:59] LABS: Troponin 5 2HR 9.63 ng/L (0-10)
[2024-09-10 18:02] LABS: Troponin 5 2HR Delta -0.37 ABS# (0-10)
[2024-09-10 20:00] VITALS: BP 144/69; PULSE 80; RESP 16; TEMP 36.7; O2SAT 96
--- NOTE | 2024-09-10 22:08 | ECG_ITS ---
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1955 Requested By: Kody Perales Order Number: [id number] Reading MD: MARGARITA BUCKNER Measurements Intervals [place] Rate: 69 P: -10 AR: 171 QRS: -53 QRSD: 110 T: -16 QT: 443 QTc: 475 Interpretive Statements SINUS RHYTHM LEFT AXIS DEVIATION [QRS AXIS < -30] MODERATE VOLTAGE CRITERIA FOR LVH, CONSIDER NORMAL VARIANT [MEETS CRITERIA IN ONE OF: R(aVL), S(V1), R(V5), R(V5/V6)+S(V1)] POSSIBLE ANTEROSEPTAL MYOCARDIAL INFARCTION , OF INDETERMINATE AGE [30 ms Q WAVE IN V1-V4] Compared to ECG 09/10/2024 17:07:25 No significant changes Electronically Signed On 09-12-2024 23:21:22 EMERY GRINDER by MARGARITA BUCKNER [id number]
[2024-09-10 22:58] LABS: Troponin 5 6HR 9.02 ng/L (0-10)
[2024-09-10 22:59] LABS: Troponin 5 6HR Delta -0.98 ng/L (0-12)
[2024-09-11] VITALS: BP 129/79; PULSE 65; RESP 14; TEMP 36.7; O2SAT 95
[2024-09-11 02:59] LABS: Bilirubin Urine 1+ (Negative); Blood Urine Negative (Negative); Glucose Urine UA Negative (Normal); Ketones Urine Trace (Negative); Leukocyte Esterase Urine 2+ (Negative); Nitrate Urine Positive (Negative); Protein Urine 1+ (Negative); Specific Gravity, Urine 1.026 (1.005-1.030); Urine Appearance Cloudy (CLEAR); Urine Color Dark Yellow (Yellow); pH Urine 5.5 (5-7)
[2024-09-11 03:04] LABS: Add Urine Microscopic? YES; Bacteria Urine 4+ /hpf; Hyaline Casts Urine 21.92 /lpf; RBC Urine 0-2 /hpf (0-2); Universal Test for UA Present (0); WBC Urine >100 /hpf (0-5)
[2024-09-11 03:31] LABS: Add Urine Culture? Yes
[2024-09-11 04:00] VITALS: BP 137/74; PULSE 69; RESP 13; TEMP 36.6; O2SAT 96
[2024-09-11 04:46] LABS: Basophils % 0.5 %; Eosinophils # 0.2 10^3/uL (0.0-0.8); Eosinophils % 2.5 %; Hematocrit 39.2 % (36-47); Lymphocytes # 2.4 10^3/uL (0.8-4.8); Lymphocytes % 27.4 %; Mean Corpuscular HGB Conc 30.1 g/dL (30-55); Mean Corpuscular Hemoglobin 28.7 pg (27-33); Mean Corpuscular Volume 95.4 fl (85-98); Mean Platelet Volume 14.6 fL (7.4-10.4); Monocytes # 0.7 10^3/uL (0.2-0.9); Monocytes % 8.5 %; Neutrophils # 5.28 10^3/uL (1.8-7.7); Neutrophils % 60.6 %; Nucleated Red Blood Cells % 0 %; Platelet Count 95 10^3/cmm (157-399); Red Blood Count 4.11 10^6/uL (3.85-5.65); Red Cell Distribution Width 13.5 % (12.1-15.1); White Blood Count 8.71 10^3/uL (3.29-11.43)
[2024-09-11 04:56] LABS: Slide Review Slide Review Perform
[2024-09-11 05:12] LABS: Alanine Aminotransferase 29 U/L (0-33); Albumin Level 3.3 g/dL (3.5-5.2); Alkaline Phosphatase 62 U/L (35-105); Aspartate Amino Transferase 20 U/L (0-32); Blood Urea Nitrogen 18 mg/dL (8-23); Calcium 8.7 mg/dL (8.5-10.5); Carbon Dioxide 27 mmol/L (22-29); Chloride 114 mmol/L (98-107); Creatinine Clr Calc Pharmacy 64.6721; Globulin 2.7 g/dL (1.3-4.6); Glucose 97 mg/dL (65-115); Osmolality Calculated 310 mOsm/kg (285-295); Sodium 149 mmol/L (136-145); Total Bilirubin 0.5 mg/dL (0.15-1.2)
[2024-09-11 05:19] LABS: Anion Gap 11.6 (5-19); Potassium 3.6 mmol/L (3.5-5.1)
[2024-09-11 08:00] VITALS: BP 121/70; PULSE 66; RESP 17; TEMP 36.6; O2SAT 94
[2024-09-11 08:51] LABS: LAB Peripheral Smear Sent for Review
[2024-09-11 09:17] LABS: Lactate Dehydrogenase 170 U/L (135-214)
[2024-09-11] MEDS: memantine 5 mg tablet 10 MG PO ×2 (09:24→17:54)
[2024-09-11] MEDS: aspirin 81 mg Chew Tablet PO (09:24)
[2024-09-11] MEDS: meropenem 500 mg SDV IVP ×3 (09:24→23:28)
[2024-09-11] MEDS: metoclopramide 10 mg Tablet 5 MG PO (09:25)
[2024-09-11] MEDS: atorvastatin 40 mg Tablet PO (09:25)
[2024-09-11] MEDS: duloxetine 60 mg Capsule PO (09:25)
[2024-09-11] MEDS: clopidogrel 75 mg Tablet PO (09:25)
[2024-09-11] MEDS: levothyroxine 175 mcg Tablet 87.5 MCG PO (09:26)
[2024-09-11] MEDS: polyethylene glycol 3350 Pkt 17 gm PO ×2 (09:27→17:54)
[2024-09-11] MEDS: sodium chloride 0.9% 1,000 ML 50 ML IV (11:42)
[2024-09-11 12:00] VITALS: BP 118/71; PULSE 69; RESP 16; TEMP 36.5; O2SAT 97
--- NOTE | 2024-09-11 15:24 | P.PN_ITS ---
Subjective 2 Subjective: Patient was seen this morning she is much more alert awake to person, not to place, not to time, she is being fed by nursing staff, receiving applesauce, no choking or coughing episodes, she seems like she is having word salad trouble coming up with the right words, to some degree receptive aphasia, we discussed her MRI brain findings of acute CVA for UTI Spoke to patient's , discussed MRI findings of acute CVA, likely explanation behind her mentation, timeframe is not clear and might have been in the last 2 weeks, based upon [facility] with the [facility] after she came back to the ER on August 27 she had a significant decline so perhaps it was during that time, nonetheless plan for her is medical management, the big question is how is her feeding going to progress she might require a PEG tube placement, will see how she does with her feeding, PT OT, speech therapy she also has a UTI will continue IV antibiotics Vitals/I&O/Wt Last Vital Signs Temp 97.7 F 09/11/24 12:00 Pulse 69 09/11/24 12:00 Resp 16 09/11/24 12:00 BP 118/71 09/11/24 12:00 Pulse Ox 97 09/11/24 12:00 O2 Del Method Room Air 09/11/24 12:00 09/11/24 09/11/24 09/11/24 06:59 14:59 22:59 Intake Total 1050 / 1050 Balance 1050 / 1050 Weight last 48 hrs Weight 65.635 kg Weight 65.363 kg Physical Exam 2 Const: COMMON NORMALS: no acute distress ORIENTATION/CONSCIOUSNESS: Yes awake and Yes oriented to person; not oriented to place and not oriented to time Resp: COMMON NORMALS: normal respiratory effort, No retractions, No use of accessory muscles and clear to auscultation bilaterally AUSCULTATION: clear to auscultation bilaterally Cardio: COMMON NORMALS: regular rate, regular rhythm, S1 normal heart sound present and S2 normal heart sound present RATE: regular rate RHYTHM: r egular rhythm HEART SOUNDS: S1 normal heart sound present and S2 normal heart sound present GI: COMMON NORMALS: Normal to inspection, nondistended, normoactive bowel sounds present and non-tender Neuro: SENSORIUM/ORIENTATION: Yes oriented to person, No oriented to place and No oriented to time Psych: COMMON NORMALS: mental status grossly normal Data 09/11/24 03:56 09/11/24 03:56 A&P Assessment and plan (1) Acute hypernatremia: - Continue IV hydration -Monitor serum sodium (2) Acute encephalopathy: - Monitor closely -IV fluids for hypernatremia -Head CT no acute findings -CTA head and neck 08/27/2024, no acute findings -She had presented to the ER 08/27/2024 as a stroke alert, not a tPA candidate, -Will consider MRI of the brain 09/24/2021 MR/MR head wo con* [id number] IMPRESSION: 1. Acute infarct involving the posterior RIGHT whyte radiata. 2. Indeterminate but possible additional very small acute lacunar infarct in the LEFT thalamus. 3. Severe chronic white matter ischemic disease. There is also involvement of the corpus callosum which can be seen with demyelination also. Suspect these changes all related to advanced chronic microvascular ischemic disease with progression since 12/23/2018. 4. No hemorrhage (3) Acute dehydration: (4) Transaminitis: - Monitor (5) CVA (cerebral vascular accident): (6) UTI (urinary tract infection): - Urinary tract infection, start meropenem (7) Acute CVA (cerebrovascular accident): - Timeframe is unknown perhaps in the last few weeks -She did present to the emergency room August 27, 2024 for concerns for CVA, not a tPA candidate -She has a history of CVA she has word finding difficulty, receptive aphasia -Since 08/27/2024 [facility] to the prison she has had a gradual decline with poor appetite, decreased mobility, she has been talking less, less interactive, reported trouble swallowing -Currently she is moving her upper extremities, can move her lower extremities, receptive aphasia, productive aphasia, says a few words, pupils equal reactive to light CTA head and neck, 08/28/2024 -NIH stroke scale difficult to assess given global encephalopathy NTERIOR CIRCULATION: Right internal carotid artery: Intracranial segment is patent with no significant stenosis. No aneurysm. Atherosclerotic calcification along the carotid siphon. Right middle cerebral artery: No occlusion or significant stenosis. No aneurysm. Right anterior cerebral artery: No occlusion or significant stenosis. No aneurysm. Left internal carotid artery: Intracranial segment is patent with no significant stenosis. No aneurysm. Atherosclerotic calcification along the carotid siphon. Left middle cerebral artery: No occlusion or significant stenosis. No aneurysm. Left anterior cerebral artery: No occlusion or significant stenosis. No aneurysm. POSTERIOR CIRCULATION: Right vertebral artery: Atherosclerosis without occlusion or significant stenosis. No aneurysm. Left vertebral artery: Atherosclerosis without occlusion or significant stenosis. No aneurysm. Basilar artery: No occlusion or significant stenosis. No aneurysm. Right posterior cerebral artery: No occlusion or significant stenosis. No aneurysm. Left posterior cerebral artery: No occlusion or significant stenosis. No aneurysm. Brain: No definite mass, mass effect, or midline shift. Stable multifocal chronic lacunar infarcts and diffuse bilateral cerebral hypoattenuation likely on the basis of chronic microvascular ischemic change. Cerebral ventricles: No hydrocephalus. Bones/joints: Unremarkable. No acute fracture. Soft tissues: Unremarkable. PROCEDURE INFORMATION: Exam: CTA Neck With Contrast Exam date and time: 08/27/2024 8:39 AM Age: 69 years old Clinical indication: Weakness and other: AMS; Additional info: Acute CVA TECHNIQUE: Imaging protocol: Computed tomographic angiography of the neck with contrast. Exam focused on the cervical segments of the vasculature. 3D rendering (Not supervised by radiologist): MIP and/or 3D reconstructed images were created by the technologist. Radiation optimization: All CT scans at this facility use at least one of these dose optimization techniques: automated exposure control; mA and/or kV adjustment per patient size (includes targeted exams where dose is matched to clinical indication); or iterative reconstruction. Contrast material: OMNI 350; Contrast volume: 100 ml; Contrast route: INTRAVENOUS (IV); COMPARISON: 1. CT angio headneck* [id number] 12/21/2018 11:[address] head thrombolytic [id number] 08/27/2024 8:10 AM RADIATION DOSE METRICS: Total DLP (mGy-cm): 447.41 FINDINGS: Right common carotid artery: Atherosclerosis without significant stenosis. No dissection or occlusion. Right internal carotid artery: Atherosclerosis without significant stenosis of the extracranial segment. No dissection or occlusion. Right external carotid artery: No occlusion or stenosis of the origin. Left common carotid artery: Atherosclerosis without significant stenosis. No dissection or occlusion. Left internal carotid artery: No stenosis of the extracranial segment. No dissection or occlusion. Left external carotid artery: No occlusion or stenosis of the origin. Right vertebral artery: No stenosis. No dissection or occlusion. Left vertebral artery: No stenosis. No dissection or occlusion. Soft tissues: Unremarkable. No significant soft tissue swelling. Bones/joints: No acute fracture. CT/CT angio headneck* [id number] IMPRESSION: No large vessel stenosis or occlusion. IMPRESSION: No stenosis or occlusion. -CT head 09/08/2024 FINDINGS: Brain: Patchy areas of hypoattenuation in the periventricular and subcortical white matter, consistent with chronic small vessel ischemic disease. Focal, well-circumscribed hypodensities in the basal ganglia, thalami and cerebellum, consistent with chronic lacunar infarcts. No CT evidence of acute intracranial hemorrhage or acute territorial infarction. No significant mass effect or midline shift. Basal cisterns patent. Cerebral ventricles: Prominence of the cortical sulci, cisterns and ventricular system, consistent with cerebral and cerebellar volume loss. Paranasal sinuses: Unremarkable. No fluid levels. Mastoid air cells: Grossly unremarkable. Bones: Unremarkable. No acute fracture. Soft tissues: Grossly unremarkable. Vasculature: Calcific atherosclerotic disease in the cavernous internal carotid arteries, as well as the vertebro-basilar system. CT/CT head wo con* [id number] IMPRESSION: 1[address] No CT evidence of acute intracranial pathology. 2. Additional findings, as above. MRI brain MR/MR head wo con* [id number] IMPRESSION: 1. Acute infarct in the periventricular/deep white matter tracts of the left frontal lobe. 2. Findings suggestive of hypertensive microangiopathy or amyloid angiopathy. 3. Advanced diffuse cerebral atrophy and sequela of chronic small vessel ischemic disease. MRI brain MR/MR head wo con* [id number] IMPRESSION: 1. Acute infarct in the periventricular/deep white matter tracts of the left frontal lobe. 2. Findings suggestive of hypertensive microangiopathy or amyloid angiopathy. 3. Advanced diffuse cerebral atrophy and sequela of chronic small vessel ischemic disease. -Is already on aspirin, Plavix, statin Plan -Monitor as inpatient -Aspirin, Plavix, statin -Monitor blood pressure -Cardiac echo, -PT OT -Speech therapy eval -Discussed with family monitoring feeding the possibility of PEG tube placement if her feeding does not improve continues to have dehydration, and electrolyte abnormalities Plan Constipation: MiraLAX Hypothyroidism: Continue levothyroxine Psoriatic arthritis, hold home medications Multiple prior CVA: Continue aspirin, Plavix. Attestations 2 Medical Necessity Statement*: Patient requires hospitalization for acute CVA, UTI, hyponatremia, inpatient, greater than 2 midnights Diagnoses Acute hypernatremia E87.0 Acute encephalopathy G93.40 Acute dehydration E86.0 Transaminitis R74.01 CVA (cerebral vascular accident) I63.9 UTI (urinary tract infection) N39.0 Acute CVA (cerebrovascular accident) I63.9
--- NOTE | 2024-09-11 15:35 | USCV_ITS ---
Vera Dalila Age: 69 Gender: F : 1955 Exam Date: 09/11/2024 08:59 Ordering Phys: Kody Perales MD Technologist: Mann Robin Exam Location: [facility] [place] Indication: ams BP: 1121 / 70 HR: 69 Rhythm: Sinus Technical Quality: Adequate MEASUREMENTS (Male / Female) Normal Values 2D ECHO LV Diastolic Diameter PLAX 4.4 cm 4.2 - 5.9 / 3.9 - 5.3 cm IVS Diastolic Thickness 1.0 cm 0.6 - 1.0 / 0.6 - 0.9 cm IVS Systolic Thickness 1.1 cm LVPW Diastolic Thickness 1.5 cm 0.6 - 1.0 / 0.6 - 0.9 cm LVPW Systolic Thickness 2.1 cm LVOT Diameter 2.0 cm LV Ejection Fraction 2D Teich 40.6 % LV Ejection Fraction MOD 4C 57.2 % LV Ejection Fraction MOD 2C 62.1 % LV Ejection Fraction 2C AL 63.0 % LA Diameter 3.0 cm RA Systolic Volume 4C AL 23.5 ml RA Systolic Volume 4C MOD 23.9 ml LA Sys Volume AL 34.3 cm cubed LA Sys Volume Index AL 19.6 cm cubed/m squared Aorta at Sinotubular Diameter 2.7 cm IVC Diameter 1.9 cm M-MODE LA Ao Ratio MM 1.4 AV Cusp Separation MM 1.6 cm DOPPLER AV Peak Velocity 108.0 cm/s LVOT Peak Velocity 83.0 cm/s AV Area Cont Eq vti 2.7 cm squared AV Area Cont Eq pk 2.5 cm squared MV Peak Velocity 98.0 cm/s MV Area PHT 3.3 cm squared Mitral E to A Ratio 0.6 TR Peak Velocity 213.0 cm/s TR Peak Gradient 18.1 mmHg TR Mean Velocity 171.0 cm/s TR Mean Gradient 12.7 mmHg TR Velocity Time Integral 55.5 cm PV Peak Velocity 87.0 cm/s RV Ejection Time 0.3 s FINDINGS Left Ventricle Normal left ventricular size, systolic function and wall thickness, with no regional wall motion abnormalities. Left ventricular ejection fraction is estimated at 60. Grade I/IV diastolic dysfunction (abnormal relaxation filling pattern), normal to mildly elevated filling pressures. Right Ventricle The right ventricle is normal in size and function. Right Atrium The right atrium is normal in size. Left Atrium The left atrium is normal in size. Mitral Valve Structurally normal mitral valve without significant stenosis or prolapse. There is no mitral regurgitation. Aortic Valve Moderate aortic valve calcification. Mild aortic valve stenosis, mean gradient 2.5 mmHg, CHARY 2.7 cm squared. Trace aortic valve regurgitation. Tricuspid Valve Structurally normal tricuspid valve without significant stenosis or regurgitation. Pulmonary artery systolic pressure is normal. Pulmonic Valve Structurally normal pulmonic valve without significant stenosis. There is no pulmonic regurgitation. Pericardium Normal pericardium without effusion. Aorta Normal ascending aorta dimension. IVC The inferior vena cava appears normal. CONCLUSIONS Normal left ventricular size, systolic function and wall thickness, with no regional wall motion abnormalities. Left ventricular ejection fraction is estimated at 60. Grade I/IV diastolic dysfunction (abnormal relaxation filling pattern), normal to mildly elevated filling pressures. Moderate aortic valve calcification. Mild aortic valve stenosis, mean gradient 2.5 mmHg, CHARY 2.7 cm squared. Trace aortic valve regurgitation. There is no pericardial effusion. Right atrial pressure is around 5 mm of mercury. Yulia Henry MD (Electronically Signed) Final Date: 15 September 2024 13:12 S
[2024-09-11 16:00] VITALS: BP 147/75; PULSE 69; RESP 17; TEMP 36.7; O2SAT 94
[2024-09-11] MEDS: pantoprazole 40 mg SDV IVP (17:54)
[2024-09-11] MEDS: mirtazapine 15 mg Tablet PO (19:45)
[2024-09-11 20:00] VITALS: BP 123/70; PULSE 67; RESP 18; TEMP 36.5; O2SAT 95
[2024-09-12] VITALS (7 sets, daily range): BP systolic 128–154; BP diastolic 70–81; PULSE 68–76; RESP 15–18; TEMP 36.4–36.9; O2SAT 93–97
[2024-09-12 04:35] LABS: Basophils % 0.3 %; Eosinophils # 0.2 10^3/uL (0.0-0.8); Eosinophils % 2.5 %; Hematocrit 39.9 % (36-47); Lymphocytes # 2.1 10^3/uL (0.8-4.8); Lymphocytes % 23.7 %; Mean Corpuscular HGB Conc 30.1 g/dL (30-55); Mean Corpuscular Hemoglobin 28.3 pg (27-33); Mean Corpuscular Volume 94.1 fl (85-98); Monocytes # 0.6 10^3/uL (0.2-0.9); Neutrophils # 5.75 10^3/uL (1.8-7.7); Neutrophils % 66.2 %; Nucleated Red Blood Cells % 0 %; Platelet Count 96 10^3/cmm (157-399); Red Blood Count 4.24 10^6/uL (3.85-5.65); Red Cell Distribution Width 13.2 % (12.1-15.1)
[2024-09-12 04:51] LABS: Alanine Aminotransferase 28 U/L (0-33); Albumin Level 3.4 g/dL (3.5-5.2); Alkaline Phosphatase 64 U/L (35-105); Anion Gap 14.4 (5-19); Aspartate Amino Transferase 26 U/L (0-32); Blood Urea Nitrogen 13 mg/dL (8-23); Calcium 8.5 mg/dL (8.5-10.5); Carbon Dioxide 26 mmol/L (22-29); Chloride 109 mmol/L (98-107); Creatinine Clr Calc Pharmacy 64.7861; Globulin 2.3 g/dL (1.3-4.6); Glomerular Filtration Rate 99.1 mL/min (90-130); Glucose 78 mg/dL (65-115); Magnesium 2.2 mg/dL (1.7-2.3); Osmolality Calculated 301 mOsm/kg (285-295); Phosphorus 2.7 mg/dL (2.5-4.5); Potassium 3.4 mmol/L (3.5-5.1); Sodium 146 mmol/L (136-145); Total Bilirubin 0.6 mg/dL (0.15-1.2); Total Protein 5.7 g/dL (6.6-8.7)
[2024-09-12] MEDS: sodium chloride 0.9% 1,000 ML 50 ML IV (09:38)
[2024-09-12] MEDS: meropenem 500 mg SDV IVP ×2 (09:40→17:51)
[2024-09-12] MEDS: memantine 5 mg tablet 10 MG PO ×2 (09:40→17:52)
[2024-09-12] MEDS: aspirin 81 mg Chew Tablet PO (09:40)
[2024-09-12] MEDS: duloxetine 60 mg Capsule PO (09:41)
[2024-09-12] MEDS: acetaminophen 325 mg Tablet PO (09:41)
[2024-09-12] MEDS: metoclopramide 10 mg Tablet 5 MG PO (09:42)
[2024-09-12] MEDS: atorvastatin 40 mg Tablet PO (09:42)
[2024-09-12] MEDS: clopidogrel 75 mg Tablet PO (09:42)
[2024-09-12] MEDS: levothyroxine 175 mcg Tablet PO (09:42)
[2024-09-12] MEDS: polyethylene glycol 3350 Pkt 17 gm PO ×2 (09:43→17:52)
[2024-09-12] MEDS: lidocaine 1% 5 ML in potassium chloride premix 100 ML 52.5 ML IV (10:28)
--- NOTE | 2024-09-12 13:04 | PC.SOCIAL ---
IMM Updated Updated pt on IMM. No questions voiced. Provided pt a copy. Initialed, dated, & timed a copy & placed in chart.
--- NOTE | 2024-09-12 17:09 | P.PN_ITS ---
Subjective 2 Subjective: Patient was seen this morning she is more interactive this morning has word finding difficulty, she seems like she gets frustrated as she is trying to come up with a word, on room air, normotensive Vitals/I&O/Wt Last Vital Signs Temp 97.7 F 09/12/24 15:45 Pulse 71 09/12/24 15:45 Resp 16 09/12/24 15:45 BP 154/76 09/12/24 15:45 Pulse Ox 95 09/12/24 15:45 O2 Del Method Room Air 09/12/24 15:45 09/12/24 09/12/24 09/12/24 06:59 14:59 22:59 Intake Total 100 / 1270 1360 / 1360 105 / 1465 Balance 100 / 1270 1360 / 1360 105 / 1465 Weight last 48 hrs Weight 65.635 kg Weight 65.635 kg Physical Exam 2 Const: COMMON NORMALS: no acute distress ORIENTATION/CONSCIOUSNESS: Yes awake, Yes oriented to person and Yes oriented to place Resp: COMMON NORMALS: normal respiratory effort, No retractions, No use of accessory muscles and clear to auscultation bilaterally AUSCULTATION: clear to auscultation bilaterally Cardio: COMMON NORMALS: regular rate, regular rhythm, S1 normal heart sound present and S2 normal heart sound present RATE: regular rate RHYTHM: r egular rhythm HEART SOUNDS: S1 normal heart sound present and S2 normal heart sound present GI: COMMON NORMALS: Normal to inspection, nondistended, normoactive bowel sounds present and non-tender Extremity: COMMON NORMALS: no pedal edema Neuro: SENSORIUM/ORIENTATION: Yes oriented to person and Yes oriented to place Data 09/12/24 03:06 09/12/24 03:06 Micro: Microbiology 09/11/24 02:50 Urine Culture - Preliminary Urine,Clean Catch Gram Negative Rods A&P Assessment and plan (1) Acute hypernatremia: - Continue IV hydration -Monitor serum sodium (2) Acute encephalopathy: - Monitor closely -IV fluids for hypernatremia -Head CT no acute findings -CTA head and neck 08/27/2024, no acute findings -She had presented to the ER 08/27/2024 as a stroke alert, not a tPA candidate, -Will consider MRI of the brain 09/24/2021 MR/MR head wo con* [id number] IMPRESSION: 1. Acute infarct involving the posterior RIGHT whyte radiata. 2. Indeterminate but possible additional very small acute lacunar infarct in the LEFT thalamus. 3. Severe chronic white matter ischemic disease. There is also involvement of the corpus callosum which can be seen with demyelination also. Suspect these changes all related to advanced chronic microvascular ischemic disease with progression since 12/23/2018. 4. No hemorrhage (3) Acute dehydration: (4) Transaminitis: - Monitor (5) CVA (cerebral vascular accident): (6) UTI (urinary tract infection): - Urinary tract infection, start meropenem (7) Acute CVA (cerebrovascular accident): - Timeframe is unknown perhaps in the last few weeks -She did present to the emergency room August 27, 2024 for concerns for CVA, not a tPA candidate -She has a history of CVA she has word finding difficulty, receptive aphasia -Since 08/27/2024 according to the [facility] she has had a gradual decline with poor appetite, decreased mobility, she has been talking less, less interactive, reported trouble swallowing -Currently she is moving her upper extremities, can move her lower extremities, receptive aphasia, productive aphasia, says a few words, pupils equal reactive to light CTA head and neck, 08/28/2024 -NIH stroke scale difficult to assess given global encephalopathy NTERIOR CIRCULATION: Right internal carotid artery: Intracranial segment is patent with no significant stenosis. No aneurysm. Atherosclerotic calcification along the carotid siphon. Right middle cerebral artery: No occlusion or significant stenosis. No aneurysm. Right anterior cerebral artery: No occlusion or significant stenosis. No aneurysm. Left internal carotid artery: Intracranial segment is patent with no significant stenosis. No aneurysm. Atherosclerotic calcification along the carotid siphon. Left middle cerebral artery: No occlusion or significant stenosis. No aneurysm. Left anterior cerebral artery: No occlusion or significant stenosis. No aneurysm. POSTERIOR CIRCULATION: Right vertebral artery: Atherosclerosis without occlusion or significant stenosis. No aneurysm. Left vertebral artery: Atherosclerosis without occlusion or significant stenosis. No aneurysm. Basilar artery: No occlusion or significant stenosis. No aneurysm. Right posterior cerebral artery: No occlusion or significant stenosis. No aneurysm. Left posterior cerebral artery: No occlusion or significant stenosis. No aneurysm. Brain: No definite mass, mass effect, or midline shift. Stable multifocal chronic lacunar infarcts and diffuse bilateral cerebral hypoattenuation likely on the basis of chronic microvascular ischemic change. Cerebral ventricles: No hydrocephalus. Bones/joints: Unremarkable. No acute fracture. Soft tissues: Unremarkable. PROCEDURE INFORMATION: Exam: CTA Neck With Contrast Exam date and time: 08/27/2024 8:39 AM Age: 69 years old Clinical indication: Weakness and other: AMS; Additional info: Acute CVA TECHNIQUE: Imaging protocol: Computed tomographic angiography of the neck with contrast. Exam focused on the cervical segments of the vasculature. 3D rendering (Not supervised by radiologist): MIP and/or 3D reconstructed images were created by the technologist. Radiation optimization: All CT scans at this facility use at least one of these dose optimization techniques: automated exposure control; mA and/or kV adjustment per patient size (includes targeted exams where dose is matched to clinical indication); or iterative reconstruction. Contrast material: OMNI 350; Contrast volume: 100 ml; Contrast route: INTRAVENOUS (IV); COMPARISON: 1. CT angio headneck* [id number] 12/21/2018 11:[address] head thrombolytic [id number] 08/27/2024 8:10 AM RADIATION DOSE METRICS: Total DLP (mGy-cm): 447.41 FINDINGS: Right common carotid artery: Atherosclerosis without significant stenosis. No dissection or occlusion. Right internal carotid artery: Atherosclerosis without significant stenosis of the extracranial segment. No dissection or occlusion. Right external carotid artery: No occlusion or stenosis of the origin. Left common carotid artery: Atherosclerosis without significant stenosis. No dissection or occlusion. Left internal carotid artery: No stenosis of the extracranial segment. No dissection or occlusion. Left external carotid artery: No occlusion or stenosis of the origin. Right vertebral artery: No stenosis. No dissection or occlusion. Left vertebral artery: No stenosis. No dissection or occlusion. Soft tissues: Unremarkable. No significant soft tissue swelling. Bones/joints: No acute fracture. CT/CT angio headneck* [id number] IMPRESSION: No large vessel stenosis or occlusion. IMPRESSION: No stenosis or occlusion. -CT head 09/08/2024 FINDINGS: Brain: Patchy areas of hypoattenuation in the periventricular and subcortical white matter, consistent with chronic small vessel ischemic disease. Focal, well-circumscribed hypodensities in the basal ganglia, thalami and cerebellum, consistent with chronic lacunar infarcts. No CT evidence of acute intracranial hemorrhage or acute territorial infarction. No significant mass effect or midline shift. Basal cisterns patent. Cerebral ventricles: Prominence of the cortical sulci, cisterns and ventricular system, consistent with cerebral and cerebellar volume loss. Paranasal sinuses: Unremarkable. No fluid levels. Mastoid air cells: Grossly unremarkable. Bones: Unremarkable. No acute fracture. Soft tissues: Grossly unremarkable. Vasculature: Calcific atherosclerotic disease in the cavernous internal carotid arteries, as well as the vertebro-basilar system. CT/CT head wo con* [id number] IMPRESSION: 1. No CT evidence of acute intracranial pathology. 2. Additional findings, as above. MRI brain MR/MR head wo con* [id number] IMPRESSION: 1. Acute infarct in the periventricular/deep white matter tracts of the left frontal lobe. 2. Findings suggestive of hypertensive microangiopathy or amyloid angiopathy. 3. Advanced diffuse cerebral atrophy and sequela of chronic small vessel ischemic disease. MRI brain MR/MR head wo con* [id number] IMPRESSION: 1. Acute infarct in the periventricular/deep white matter tracts of the left frontal lobe. 2. Findings suggestive of hypertensive microangiopathy or amyloid angiopathy. 3. Advanced diffuse cerebral atrophy and sequela of chronic small vessel ischemic disease. -Is already on aspirin, Plavix, statin Plan -Monitor as inpatient -Aspirin, Plavix, statin -Monitor blood pressure -Cardiac echo, -PT OT -Speech therapy eval -Consult dietary -Discussed with family monitoring feeding the possibility of PEG tube placement if her feeding does not improve continues to have dehydration, and electrolyte abnormalities Plan Constipation: MiraLAX Hypothyroidism: Continue levothyroxine Psoriatic arthritis, hold home medications Multiple prior CVA: Continue aspirin, Plavix. Attestations 2 Medical Necessity Statement*: Patient requires hospitalization for acute CVA, UTI, dehydration, poor appetite Diagnoses Acute hypernatremia E87.0 Acute encephalopathy G93.40 Acute dehydration E86.0 Transaminitis R74.01 CVA (cerebral vascular accident) I63.9 UTI (urinary tract infection) N39.0 Acute CVA (cerebrovascular accident) I63.9
[2024-09-12] MEDS: pantoprazole 40 mg SDV IVP (17:51)
[2024-09-12] MEDS: mirtazapine 15 mg Tablet PO (21:41)
[2024-09-13] MEDS: meropenem 500 mg SDV IVP ×2 (00:37→08:54)
[2024-09-13] MEDS: sodium chloride 0.9% 1,000 ML 50 ML IV (02:53)
[2024-09-13 04:00] VITALS: BP 163/80; PULSE 66; RESP 17; TEMP 36.7; O2SAT 98
[2024-09-13 06:30] LABS: Basophils # 0.1 10^3/uL (0.0-0.1); Basophils % 0.6 %; Eosinophils # 0.2 10^3/uL (0.0-0.8); Eosinophils % 2.7 %; Lymphocytes # 1.8 10^3/uL (0.8-4.8); Lymphocytes % 20.7 %; Mean Corpuscular Hemoglobin 28.8 pg (27-33); Mean Corpuscular Volume 92.8 fl (85-98); Mean Platelet Volume 13.7 fL (7.4-10.4); Monocytes # 0.6 10^3/uL (0.2-0.9); Monocytes % 7.3 %; Neutrophils # 5.76 10^3/uL (1.8-7.7); Neutrophils % 68.3 %; Nucleated Red Blood Cells % 0 %; Platelet Count 99 10^3/cmm (157-399); Red Blood Count 4.31 10^6/uL (3.85-5.65); White Blood Count 8.44 10^3/uL (3.29-11.43)
[2024-09-13 07:42] VITALS: BP 126/77; PULSE 78; RESP 16; TEMP 36.6; O2SAT 98
[2024-09-13 08:32] LABS: Alanine Aminotransferase 26 U/L (0-33); Albumin Level 3.4 g/dL (3.5-5.2); Alkaline Phosphatase 66 U/L (35-105); Anion Gap 15.8 (5-19); Aspartate Amino Transferase 26 U/L (0-32); Blood Urea Nitrogen 11 mg/dL (8-23); Calcium 8.5 mg/dL (8.5-10.5); Carbon Dioxide 24 mmol/L (22-29); Chloride 107 mmol/L (98-107); Creatinine Clr Calc Pharmacy 64.6529; Globulin 2.5 g/dL (1.3-4.6); Glomerular Filtration Rate 158.3 mL/min (90-130); Glucose 77 mg/dL (65-115); Magnesium 2.1 mg/dL (1.7-2.3); Osmolality Calculated 294 mOsm/kg (285-295); Phosphorus 2.6 mg/dL (2.5-4.5); Potassium 3.8 mmol/L (3.5-5.1); Sodium 143 mmol/L (136-145); Total Bilirubin 0.7 mg/dL (0.15-1.2); Total Protein 5.9 g/dL (6.6-8.7)
[2024-09-13] MEDS: atorvastatin 40 mg Tablet PO (08:52)
[2024-09-13] MEDS: clopidogrel 75 mg Tablet PO (08:52)
[2024-09-13] MEDS: metoclopramide 10 mg Tablet 5 MG PO (08:52)
[2024-09-13] MEDS: duloxetine 60 mg Capsule PO (08:52)
[2024-09-13] MEDS: memantine 5 mg tablet 10 MG PO (08:52)
[2024-09-13] MEDS: aspirin 81 mg Chew Tablet PO (08:52)
[2024-09-13] MEDS: polyethylene glycol 3350 Pkt 17 gm PO (08:53)
[2024-09-13] MEDS: levothyroxine 175 mcg Tablet PO (08:54)
[2024-09-13 09:01] VITALS: BP 119/69; PULSE 78; RESP 16; TEMP 36.4; O2SAT 96
--- NOTE | 2024-09-13 11:01 | PM.DCS ---
Discharge Providers Date of Admission: 09/09/24 07:23 Date of Discharge: September 13, 2024 Attending Provider at Admission: Arnaud Pillai Attending Provider at Discharge: Kody Perales MD Primary Care Provider: Leona Wilder NP Diagnoses at Discharge Discharge Diagnosis (1) Acute hypernatremia: Status: Acute (2) Acute encephalopathy: Status: Acute (3) Acute dehydration: Status: Acute (4) Transaminitis: Status: Acute (5) CVA (cerebral vascular accident): Status: Acute (6) UTI (urinary tract infection): Status: Acute (7) Acute CVA (cerebrovascular accident): Status: Acute Reason for Visit Reason for Visit: high sodium Hospital Course Hospital Course This is a 69-year-old female with past medical history of multiple CVAs, psoriatic arthritis, hypothyroidism, who presents [facility] due to poor appetite, confusion, weakness Patient was admitted to [facility] for poor appetite, confusion, weakness, decline multifactorial from UTI, acute hyponatremia, acute CVA Patient was admitted to [facility] for concerns for acute hyponatremia, received IV hydration secondary poor appetite, started on appetite stimulant received IV fluids, overall hyponatremia improved, mentation improved, sodium on discharge 143. Given patient's CVA as below, my worry is her risk of further clinical decline, with poor appetite, electrolyte abnormalities. Overall she does display overall improvement in her appetite, calorie intake, and electrolytes have improved. Will monitor electrolytes as outpatient, follow-up with neurology as outpatient. Patient during hospitalization was found to have any acute CVA acute CVA (cerebrovascular accident): - Timeframe is unknown perhaps in the last few weeks -She did present to the emergency room August 27, 2024 for concerns for CVA, not a tPA candidate -She has a history of CVA she has word finding difficulty, receptive aphasia -Since 08/27/2024 according to the long-term she has had a gradual decline with poor appetite, decreased mobility, she has been talking less, less interactive, reported trouble swallowing -During her hospitalization moving her upper extremities, can move her lower extremities, receptive aphasia, productive aphasia, says a few words, pupils equal reactive to light CTA head and neck, 08/28/2024 -NIH stroke scale difficult to assess given global encephalopathy NTERIOR CIRCULATION: Right internal carotid artery: Intracranial segment is patent with no significant stenosis. No aneurysm. Atherosclerotic calcification along the carotid siphon. Right middle cerebral artery: No occlusion or significant stenosis. No aneurysm. Right anterior cerebral artery: No occlusion or significant stenosis. No aneurysm. Left internal carotid artery: Intracranial segment is patent with no significant stenosis. No aneurysm. Atherosclerotic calcification along the carotid siphon. Left middle cerebral artery: No occlusion or significant stenosis. No aneurysm. Left anterior cerebral artery: No occlusion or significant stenosis. No aneurysm. POSTERIOR CIRCULATION: Right vertebral artery: Atherosclerosis without occlusion or significant stenosis. No aneurysm. Left vertebral artery: Atherosclerosis without occlusion or significant stenosis. No aneurysm. Basilar artery: No occlusion or significant stenosis. No aneurysm. Right posterior cerebral artery: No occlusion or significant stenosis. No aneurysm. Left posterior cerebral artery: No occlusion or significant stenosis. No aneurysm. Brain: No definite mass, mass effect, or midline shift. Stable multifocal chronic lacunar infarcts and diffuse bilateral cerebral hypoattenuation likely on the basis of chronic microvascular ischemic change. Cerebral ventricles: No hydrocephalus. Bones/joints: Unremarkable. No acute fracture. Soft tissues: Unremarkable. PROCEDURE INFORMATION: Exam: CTA Neck With Contrast Exam date and time: 08/27/2024 8:39 AM Age: 69 years old Clinical indication: Weakness and other: AMS; Additional info: Acute CVA TECHNIQUE: Imaging protocol: Computed tomographic angiography of the neck with contrast. Exam focused on the cervical segments of the vasculature. 3D rendering (Not supervised by radiologist): MIP and/or 3D reconstructed images were created by the technologist. Radiation optimization: All CT scans at this facility use at least one of these dose optimization techniques: automated exposure control; mA and/or kV adjustment per patient size (includes targeted exams where dose is matched to clinical indication); or iterative reconstruction. Contrast material: OMNI 350; Contrast volume: 100 ml; Contrast route: INTRAVENOUS (IV); COMPARISON: 1. CT angio headneck* [id number] 12/21/2018 11:[address] head thrombolytic [id number] 08/27/2024 8:10 AM RADIATION DOSE METRICS: Total DLP (mGy-cm): 447.41 FINDINGS: Right common carotid artery: Atherosclerosis without significant stenosis. No dissection or occlusion. Right internal carotid artery: Atherosclerosis without significant stenosis of the extracranial segment. No dissection or occlusion. Right external carotid artery: No occlusion or stenosis of the origin. Left common carotid artery: Atherosclerosis without significant stenosis. No dissection or occlusion. Left internal carotid artery: No stenosis of the extracranial segment. No dissection or occlusion. Left external carotid artery: No occlusion or stenosis of the origin. Right vertebral artery: No stenosis. No dissection or occlusion. Left vertebral artery: No stenosis. No dissection or occlusion. Soft tissues: Unremarkable. No significant soft tissue swelling. Bones/joints: No acute fracture. CT/CT angio headneck* [id number] IMPRESSION: No large vessel stenosis or occlusion. IMPRESSION: No stenosis or occlusion. -CT head 09/08/2024 FINDINGS: Brain: Patchy areas of hypoattenuation in the periventricular and subcortical white matter, consistent with chronic small vessel ischemic disease. Focal, well-circumscribed hypodensities in the basal ganglia, thalami and cerebellum, consistent with chronic lacunar infarcts. No CT evidence of acute intracranial hemorrhage or acute territorial infarction. No significant mass effect or midline shift. Basal cisterns patent. Cerebral ventricles: Prominence of the cortical sulci, cisterns and ventricular system, consistent with cerebral and cerebellar volume loss. Paranasal sinuses: Unremarkable. No fluid levels. Mastoid air cells: Grossly unremarkable. Bones: Unremarkable. No acute fracture. Soft tissues: Grossly unremarkable. Vasculature: Calcific atherosclerotic disease in the cavernous internal carotid arteries, as well as the vertebro-basilar system. CT/CT head wo con* [id number]: 1[address] No CT evidence of acute intracranial pathology. 2. Additional findings, as above. MRI brain MR/MR head wo con* [id number] IMPRESSION: 1. Acute infarct in the periventricular/deep white matter tracts of the left frontal lobe. 2. Findings suggestive of hypertensive microangiopathy or amyloid angiopathy. 3. Advanced diffuse cerebral atrophy and sequela of chronic small vessel ischemic disease. MRI brain MR/MR head wo con* [id number] IMPRESSION: 1. Acute infarct in the periventricular/deep white matter tracts of the left frontal lobe. 2. Findings suggestive of hypertensive microangiopathy or amyloid angiopathy. 3. Advanced diffuse cerebral atrophy and sequela of chronic small vessel ischemic disease. -Managed with aspirin, Plavix, statin, PT OT, speech therapy eval -On discharge overall her mentation has improved she is alert to person, somewhat to place, not to time, she continues to have word finding difficulty, continues to have episodes of receptive aphasia, productive aphasia, moves bilateral upper and lower extremities but improved -She will be discharged to nursing home facility on a dysphagia level 4 diet, moderately thickened -PT OT, speech therapy eval -Aspirin, Plavix, statin -Due to her recurrent CVAs discharged with event monitor placed follow-up cardiology in 1 month -Follow-up with neurology -If any recurrent strokelike symptoms, no 1 -Given patient's acute CVA, decline, poor appetite, she was monitored as inpatient had hyponatremia secondary to poor appetite, managed with Remeron, IV fluids, speech therapy, monitored feeds -Overall her appetite is improved -However she does have a risk of deconditioning, protein calorie malnutrition, electrolyte abnormalities -Monitor CMP in 48 hours and monitor periodically as outpatient -If patient continues to have deconditioning, protein alvin malnutrition, left abnormality she would likely need a PEG tube placed will have her follow-up with general surgery in 2 weeks -I have discussed this in detail with patient's , discharged to nursing home facility -Discussed risks and benefits, he voiced understanding, all consents are, agreed to proceed During hospitalization, patient was found to have a urinary tract infection, managed with broad-spectrum antibiotic therapy, discharged on p.o. antibiotic therapy Physical Exam Const: COMMON NORMALS: no acute distress ORIENTATION/CONSCIOUSNESS: Yes awake, Yes oriented to person and Yes oriented to place; not oriented to time Resp: COMMON NORMALS: normal respiratory effort, No retractions, No use of accessory muscles and clear to auscultation bilaterally AUSCULTATION: clear to auscultation bilaterally Cardio: COMMON NORMALS: regular rate, regular rhythm, S1 normal heart sound present and S2 normal heart sound present RATE: regular rate RHYTHM: regular rhythm HEART SOUNDS: S1 normal heart sound present and S2 normal heart sound present GI: COMMON NORMALS: Normal to inspection, nondistended, normoactive bowel sounds present and non-tender Extremity: COMMON NORMALS: no pedal edema Neuro: SENSORIUM/ORIENTATION: Yes oriented to person, Yes oriented to place and No oriented to time Discharge Data Studies Completed and Pending Completed Studies During Hospitalization Category Date Time Status CT abdomen pelvis wo con [id number] Stat Cat Scan 09/08/24 09:[address] head wo con* [id number] Stat Cat Scan 09/08/24 12:33 Completed MR head wo con* [id number] Routine MRI 09/10/24 15:34 Completed Pending at discharge Category Date Time Status Complete Blood Count w/Auto AM LABS Lab 09/14/24 04:00 Ordered Comprehensive Metabolic Panel AM LABS Lab 09/14/24 04:00 Ordered Magnesium AM LABS Lab 09/14/24 04:00 Ordered Phosphorus AM LABS Lab 09/14/24 04:00 Ordered CV. echo complete* [id number] Routine Ultrasound 09/11/24 15:35 Taken Radiology Impressions Abdomen/Pelvis CT 09/08/24 09:12 IMPRESSION: 1. Mild hepatomegaly. 2. Fluid distended gallbladder with suggestion of increased attenuation layering sludge. This can be further evaluated with ultrasound. 3. No hydronephrosis in either kidney. 4. Dense sigmoid constipation. 5. Chronic appearing mild compression of the superior endplates of L1 and L3 with anterior wedging. 6. No other acute findings. Head CT 09/08/24 12:[address]: 1[address] evidence of acute intracranial pathology. 2. Additional findings, as above. Head MRI 09/10/24 15:34 IMPRESSION: 1. Acute infarct in the periventricular/deep white matter tracts of the left frontal lobe. 2. Findings suggestive of hypertensive microangiopathy or amyloid angiopathy. 3. Advanced diffuse cerebral atrophy and sequela of chronic small vessel ischemic disease. ADDENDUM: 09/10/24 1732 THIS REPORT CONTAINS FINDINGS THAT MAY BE CRITICAL TO PATIENT CARE. The findings were verbally communicated via telephone conference with KODY PERALES at 5:31 PM FEATURES REPORTER on 09/10/2024. The findings were acknowledged and understood. Laboratory Results WBC 8.44 10^3/uL (3.29-11.43) 09/13/24 06:12 RBC 4.31 10^6/uL (3.85-5.65) 09/13/24 06:12 Hgb 12.40 g/dL (11.27-16.99) 09/13/24 06:12 Hct 40.0 % (36-47) 09/13/24 06:12 MCV 92.8 fl (85-98) 09/13/24 06:12 MCH 28.8 pg (27-33) 09/13/24 06:12 MCHC 31.0 g/dL (30-55) 09/13/24 06:12 RDW 13.0 % (12.1-15.1) 09/13/24 06:12 Plt Count 99 10^3/cmm (157-399) L 09/13/24 06:12 MPV 13.7 fL (7.4-10.4) H 09/13/24 06:12 Neut % (Auto) 68.3 % 09/13/24 06:12 Lymph % (Auto) 20.7 % 09/13/24 06:12 Cecil % (Auto) 7.3 % 09/13/24 06:12 Eos % (Auto) 2.7 % 09/13/24 06:12 Baso % (Auto) 0.6 % 09/13/24 06:12 Neut # (Auto) 5.76 10^3/uL (1.8-7.7) 09/13/24 06:12 Lymph # (Auto) 1.8 10^3/uL (0.8-4.8) 09/13/24 06:12 Cecil # (Auto) 0.6 10^3/uL (0.2-0.9) 09/13/24 06:12 Eos # (Auto) 0.2 10^3/uL (0.0-0.8) 09/13/24 06:12 Baso # (Auto) 0.1 10^3/uL (0.0-0.1) 09/13/24 06:12 Nucleated RBC % (auto) 0 % 09/13/24 06:12 Nucleated RBCs # 0.0 /100WBC 09/13/24 06:12 Peripher Smr Path Cons Sent for review 09/11/24 03:56 Haptoglobin 191.0 mg/L (30-200) 09/11/24 03:56 Sodium 143 mmol/L (136-145) 09/13/24 07:48 Potassium 3.8 mmol/L (3.5-5.1) 09/13/24 07:48 Chloride 107 mmol/L (98-107) 09/13/24 07:48 Carbon Dioxide 24 mmol/L (22-29) 09/13/24 07:48 Anion Gap 15.8 (5-19) 09/13/24 07:48 BUN 11 mg/dL (8-23) 09/13/24 07:48 Creatinine 0.4 mg/dL (0.5-0.9) L 09/13/24 07:48 GFR Calculation 158.3 mL/min (90-130) H 09/13/24 07:48 Glucose 77 mg/dL (65-115) 09/13/24 07:48 Calculated Osmolality 294 mOsm/kg (285-295) 09/13/24 07:48 Calcium 8.5 mg/dL (8.5-10.5) 09/13/24 07:48 Phosphorus 2.6 mg/dL (2.5-4.5) 09/13/24 07:48 Magnesium 2.1 mg/dL (1.7-2.3) 09/13/24 07:48 Total Bilirubin 0.7 mg/dL (0.15-1.2) 09/13/24 07:48 AST 26 U/L (0-32) 09/13/24 07:48 ALT 26 U/L (0-33) 09/13/24 07:48 Alkaline Phosphatase 66 U/L (35-105) 09/13/24 07:48 Ammonia 34 umol/L (11-51) 09/10/24 15:38 Lactate Dehydrogenase 170 U/L (135-214) 09/11/24 03:56 Creatine Kinase 40 U/L (26-192) 09/08/24 07:03 Troponin T Baseline 10 ng/L (0-10) 09/10/24 15:38 Troponin T 120 Minute 9.63 ng/L (0-10) 09/10/24 17:28 Delta Troponin T -0.37 ABS# (0-10) L 09/10/24 17:28 Troponin T Hi Sens 6Hr 9.02 ng/L (0-10) 09/10/24 22:20 Troponin T Hi Sens 6Hr Delta -0.98 ng/L (0-12) L 09/10/24 22:20 Total Protein 5.9 g/dL (6.6-8.7) L 09/13/24 07:48 Albumin 3.4 g/dL (3.5-5.2) L 09/13/24 07:48 Globulin 2.5 g/dL (1.3-4.6) 09/13/24 07:48 TSH 2.18 uIU/mL (0.27-4.20) 09/08/24 07:03 Urine Color Dark yellow (Yellow) A 09/11/24 02:50 Urine Appearance Cloudy (CLEAR) A 09/11/24 02:50 Urine pH 5.5 (5-7) 09/11/24 02:50 Ur Specific [place] 1.026 (1.005-1.030) 09/11/24 02:50 Urine Protein 1+ (Negative) A 09/11/24 02:50 Urine Glucose (UA) Negative (Normal) 09/11/24 02:50 Urine Ketones Trace (Negative) 09/11/24 02:50 Urine Blood Negative (Negative) 09/11/24 02:50 Urine Nitrate Positive (Negative) A 09/11/24 02:50 Urine Bilirubin 1+ (Negative) H 09/11/24 02:50 Urine Urobilinogen 1.0 mg/dL (Negative) 09/11/24 02:50 Ur Leukocyte Esterase 2+ (Negative) A 09/11/24 02:50 Urine RBC 0-2 /hpf (0-2) 09/11/24 02:50 Urine WBC >100 /hpf (0-5) H 09/11/24 02:50 Ur Squamous Epith Cells 6-10 /hpf (0-5) 09/11/24 02:50 Amorphous Sediment Not Reportable 09/11/24 02:50 Urine Bacteria 4+ /hpf (NONE) H 09/11/24 02:50 Hyaline Casts 21.92 /lpf 09/11/24 02:50 Vitals Last Vital Signs Temp 97.5 F L 09/13/24 09:01 Pulse 78 09/13/24 09:01 Resp 16 09/13/24 09:01 BP 119/69 09/13/24 09:01 Pulse Ox 96 09/13/24 09:01 O2 Del Method Room Air 09/13/24 09:01 Discharge Plan Discharge Patient Disposition: Xfer SNF Condition: Stable Prescriptions: New cefdinir 300 mg capsule 300 mg PO BID 5 Days Qty: 10 0RF mirtazapine [Remeron] 30 mg tablet 15 mg PO BEDTIME 30 Days Qty: 15 0RF Continued aspirin 81 mg tablet,delayed release (DR/EC) 81 mg PO DAILY Qty: 30 0RF levothyroxine [Synthroid] 175 mcg tablet See Rx Instructions .ROUTE .COMPLEX Rx Instructions: Take one Half Tablet by mouth on Thursday and 1 tablet Thursday through Thursday. meclizine 12.5 mg tablet 12.5 mg PO Q8H PRN (Reason: Dizziness Or Vertigo) metoclopramide HCl [Reglan] 5 mg Tablet 5 mg PO DAILY bisacodyl 5 mg Tablet,Delayed Release (Dr/Ec) 10 mg PO DAILY PRN (Reason: constipation ) rivastigmine tartrate 3 mg capsule 3 mg PO DAILY fluticasone propionate 110 mcg/actuation Hfa Aerosol Inhaler 2 puff INHALATION BID PRN (Reason: sob) alum-mag hydroxide-simeth [Mylanta Maximum Strength] 400-400-40 mg/5 mL Suspension 30 ml PO Q4H PRN (Reason: Indigestion) cholecalciferol (vitamin D3) 10 mcg (400 unit) Capsule 10 mcg PO DAILY cyclobenzaprine 5 mg tablet 5 mg PO TID PRN (Reason: pain/spasms) memantine 10 mg tablet 10 mg PO BID duloxetine 60 mg capsule,delayed release(DR/EC) 60 mg PO DAILY Multi For Her 50 Plus 400-80 mcg Capsule 1 cap PO DAILY acetaminophen [Tylenol] 325 mg Tablet 325 mg PO QID PRN (Reason: Pain) diclofenac sodium 1 % Gel 2 g TOPICAL QID PRN (Reason: Pain) Cosentyx 150 mg/mL Syringe See Rx Instructions .ROUTE .COMPLEX Rx Instructions: 300 mg subcutaneously Q28 days clopidogrel 75 mg tablet 75 mg PO DAILY rosuvastatin 10 mg tablet 10 mg PO DAILY Discontinued amoxicillin-pot clavulanate 875-125 mg tablet 1 tab PO BID Discharge Orders: Discharge Order (Routine); Ordered 09/13/24 Ordered By: Kody Perales Other Ambulatory Orders: MCT/Event Monitor 30 Days (Routine) Timeframe: 1 Day Facility: [facility] - Location: Radiology Ordered By: Kody Perales Referrals: [facility] [Outside] Azul Mesa MD [Physician] - 2 weeks (We have notified your physician's clinic of the need for a follow-up appointment to be scheduled. If you have not heard from them within the next 2 business days, please call them directly. ) Reddy Cowan MD [Physician] - 2 weeks (We have notified your physician's clinic of the need for a follow-up appointment to be scheduled. If you have not heard from them within the next 2 business days, please call them directly. ) Leona Wilder NP [Primary Care Provider] - Lincoln Browning M.D [Physician] - 1 month (We have notified your physician's clinic of the need for a follow-up appointment to be scheduled. If you have not heard from them within the next 2 business days, please call them directly. ) Discharge Diet: As Directed Discharge Activity: Increase activity as tolerated Patient Instructions: Mirtazapine (By mouth), Cefdinir (By mouth), Opioid Safety Activity Restrictions/Additional Instructions: -Take aspirin, statin, Plavix as prescribed please follow-up with neurology - If you have recurrent strokelike symptoms please go to the emergency room -take antibiotics as prescribed for UTI encourage p.o. intake -Please encourage p.o. intake -Event monitor ordered -Please monitor closely for p.o. intake, you will be discharged on a dysphagia level 4 diet, extremely thickened, due to risk of aspiration, keep on aspiration precautions -Please follow-up with general surgery in 2 weeks for consideration of PEG tube placement based on clinical progress -Recheck CMP in 48 hours Discharge Attestations Time Spent in Discharge Care*: greater than 30 min Quality Metrics Clinical Quality Measures [ Cerebrovascular Accident { Contraindication to Antithrombotic: None; antithrombotic prescribed; Contraindication to Anticoagulation: Overlap treatment not indicated; Contraindication to Statin: None; Statin prescribed;}] Coding Level of Care Code 75852 Total time (in minutes) for Discharge: 45 Diagnoses Acute hypernatremia E87.0 Acute encephalopathy G93.40 Acute dehydration E86.0 Transaminitis R74.01 CVA (cerebral vascular accident) I63.9 UTI (urinary tract infection) N39.0 Acute CVA (cerebrovascular accident) I63.9
[2024-09-13 12:00] VITALS: BP 127/83; PULSE 79; RESP 18; TEMP 36.5; O2SAT 95
--- NOTE | 2024-09-13 12:15 | PC.NURSE ---
report called to Majo at [facility]. All questions answered at this time.
[2024-09-13 13:41] VITALS: BP 127/83; PULSE 79; RESP 18; TEMP 36.5; O2SAT 95
== END 2024-09-13 13:42 | disposition skilled nursing facility (03) | DRG 64 ==
LOC: ER 11:31 → MEDSURG 11:57
PROVIDERS: Emergency Medicine; Admitting Provider Internal Medicine; Emergency Provider Emergency Medicine; PCP Nurse Practitioner Family; Visit Provider Family Medicine
DX: I63.9 Cerebral infarction, unspecified (principal); G93.41 Metabolic encephalopathy; E87.0 Hyperosmolality and hypernatremia; N39.0 Urinary tract infection, site not specified; R47.01 Aphasia; E86.0 Dehydration; R74.01 Elevation of levels of liver transaminase levels; L40.50 Arthropathic psoriasis, unspecified; E03.9 Hypothyroidism, unspecified; R63.0 Anorexia; Z68.23 Body mass index [BMI] 23.0-23.9, adult; Z79.82 Long term (current) use of aspirin; Z79.02 Long term (current) use of antithrombotics/antiplatelets; Z86.73 Personal history of transient ischemic attack (TIA), and cerebral infarction without residual deficits
CPT/HCPCS: 12345; 36415; 51702; 70450; 70551; 74176; 80048; 80053; 80503; 81001; 82140; 82550; 83010; 83615; 83735; 84100; 84443; 84484; 85025; 87077; 87086; 87186; 92507; 92523; 92526; 92610; 93005; 93306; 96372; 97161; 97167; 99285; G0378; J1650; J2185; J2470; J3480; J7030; J7070; J7799; J8597

== ENCOUNTER → 2024-11-03 14:22 | Outpatient (BNVA) | payer MEDICARE, SELFPAY | PROVIDERS: PCP Nurse Practitioner Family; Visit Provider Internal Medicine | DX: Z09 Encounter for follow-up examination after completed treatment for conditions other than malignant neoplasm (principal); I63.9 Cerebral infarction, unspecified | CPT/HCPCS: 99204 ==

== ENCOUNTER → 2024-11-21 11:03 | Outpatient (BNVA) | payer MEDICARE, BC, SELFPAY | PROVIDERS: PCP Nurse Practitioner Family; Visit Provider Nurse Practitioner Family | DX: L40.0 Psoriasis vulgaris (principal); L85.3 Xerosis cutis; L82.1 Other seborrheic keratosis; L73.8 Other specified follicular disorders; D22.39 Melanocytic nevi of other parts of face; Z85.828 Personal history of other malignant neoplasm of skin; L57.0 Actinic keratosis; X32.XXXA Exposure to sunlight, initial encounter | CPT/HCPCS: 17000; 99214 ==

== ENCOUNTER → 2025-03-08 08:05 | Outpatient (BNVA) | payer MEDICARE, BC, SELFPAY | PROVIDERS: PCP Nurse Practitioner Family; Visit Provider Nurse Practitioner Family | DX: L40.0 Psoriasis vulgaris (principal); L85.3 Xerosis cutis; D22.39 Melanocytic nevi of other parts of face; Z85.828 Personal history of other malignant neoplasm of skin; L82.0 Inflamed seborrheic keratosis; L29.89 Other pruritus; L53.8 Other specified erythematous conditions; R20.8 Other disturbances of skin sensation; Z78.9 Other specified health status | CPT/HCPCS: 17110; 99214 ==